=== PATIENT | female | born 1990 | race African-American/Black ===

== ENCOUNTER 2017-09-13 19:44 | Emergency (ER) | payer SELFPAY ==
[2017-09-13] MEDS ORDERED: NA CHLORIDE 0.9% 1,000 ML ONE ×2 (20:51→22:41)
[2017-09-13] MEDS ORDERED: AMLODIPINE 5 MG TAB ONE (20:51)
[2017-09-13 21:16] LABS: Absolute Lymphocytes (CBC) 1.6 K/uL (0.7-4.9); Absolute Monocytes 0.4 K/uL (0.1-1.3); Absolute Neutrophil 2.3 K/uL (1.8-8.0); Basophils % 1.1 % (0-1.3); Eosinophils % 0.1 % (0-4.4); Hematocrit 36.5 % (36.0-45.0); MCH 30.4 pg (27.0-35.0); MCV 92.4 fL (80-100); Monocytes % 8.6 % (3.3-12.3); RBC Red Blood Cell Count 3.95 M/uL (3.86-4.86)
[2017-09-13 21:28] LABS: Glucose Level 108 mg/dL (65-120); Lipase 26 U/L (22-51)
[2017-09-13 21:29] LABS: Protime INR 1.21
[2017-09-13 21:33] LABS: Barbiturates NEGATIVE; Benzodiazepines NEGATIVE; Cocaine NEGATIVE; Opiates NEGATIVE; Phencyclidine NEGATIVE; THC Cannibis NEGATIVE
[2017-09-13 21:34] LABS: ALT/SGPT 7 IU/L (10-60); AST/SGOT 25 IU/L (10-42); Albumin 4.6 g/dL (3.2-5.5); Alkaline Phosphatase 60 IU/L (42-121); BUN Blood Urea Nitrogen 7 mg/dL (6-20); Bilirubin Direct 0.2 mg/dL (0-0.2); Creatine Phosphokinase 105 IU/L (22-269); Magnesium 1.5 mg/dL (1.8-2.5); Protein, Total 8.6 g/dL (6.0-8.3)
--- NOTE | 2017-09-13 21:38 | RAD REPORT ---
EXAM DESCRIPTION: RAD - Chest Single View - 09/13/2017 9:06 pm CLINICAL HISTORY: Cough COMPARISON: June 2006 T TECHNIQUE: AP portable chest image was obtained 2109 hours . FINDINGS: No peripheral mass, consolidation or failure. Lung markings are similar to the comparison. Heart and vasculature are normal. No measurable pleural effusion and no pneumothorax. No gross bony abnormality seen. No acute aortic findings suspected. IMPRESSION: No acute cardiopulmonary process. No significant change from comparison.
[2017-09-13 21:39] LABS: Bicarbonate 19 mEq/L (21-31); CKMB Creatine Kinase MB 0.5 ng/ml (0.3-4.0); Sodium Level 135 mEq/L (135-145)
--- NOTE | 2017-09-13 21:39 | RAD REPORT ---
EXAM DESCRIPTION: CT - Head Brain Wo Cont - 09/13/2017 9:24 pm COMPARISON: None. TECHNIQUE: Axial 5 mm thick images of the head were obtained without IV contrast. All CT scans are performed using dose optimization technique as appropriate and may include automated exposure control or mA/KV adjustment according to patient size. FINDINGS: No intracranial hemorrhage, mass, edema or shift of mid-line structures. No acute infarcti on changes seen. No abnormal extra-axial fluid collections. Ventricles are normal. Mastoid air cells and visualized portions of the paranasal sinuses are clear. No acute bony findings. IMPRESSION: Negative non-contrast CT head examination.
[2017-09-13 21:47] LABS: Alcohol Serum/Plasma < 10 mg/dl
[2017-09-13 21:48] LABS: Potassium 2.1 mEq/L (3.6-5.0)
[2017-09-13 21:49] LABS: METHAMPHETAM POSITIVE (NEGATIVE)
[2017-09-13] MEDS ORDERED: KCL 20 MEQ/100 mL IVPB 20 MEQ/100 ML BAG IV ONE (21:51)
--- NOTE | 2017-09-13 22:16 | ER ---
Nurse's Notes [facility] Name: Radha Mclcellan Age: 27 yrs Sex: Female : 1990 Arrival Date: 09/13/2017 Time: 19:47 Bed 24 Private MD: Diagnosis: Essential (primary) hypertension;Hypomagnesemia;Hypokalemia;Weakness;Cystitis Presentation: 09/13 20:03 Presenting complaint: EMS states: abdominal pain, anxiety, headache started today after tl3 work. Transition of care: patient was not received from another setting of care. Onset of symptoms was September 13, 2017 at 19:00. Risk Assessment: Do you want to hurt yourself or someone else? Patient reports no desire to harm self or others. Initial Sepsis Screen: Does the patient meet any 2 criteria? No. Patient's initial sepsis screen is negative. Does the patient have a suspected source of infection? No. Patient's initial sepsis screen is negative. Care prior to arrival: None. 20:03 Method Of Arrival: EMS: [facility] tl3 20:03 Acuity: KORINA 3 tl3 Triage Assessment: 20:07 General: Appears distressed, well groomed, well developed, well nourished, Behavior is tl3 anxious, listless, restless. Pain: Complains of pain in abdomen, headache. EENT: No signs and/or symptoms were reported regarding the EENT system. Neuro: Level of Consciousness is awake, alert, obeys commands, Oriented to person, place, time, situation, none. Cardiovascular: Heart tones S1 S2 present Patient's skin is warm and dry. Respiratory: Airway is patent Respiratory effort is even, unlabored, Respiratory pattern is regular, symmetrical. GI: Abdomen is round. : No signs and/or symptoms were reported regarding the genitourinary system. Derm: No signs and/or symptoms reported regarding the dermatologic system. Musculoskeletal: No signs and/or symptoms reported regarding the musculoskeletal system. 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 - Social history:: Smoking status: unknown. - Ebola Screening: : Patient denies travel to an Ebola-affected area in the 21 days before illness onset. Screenin/26 20:13 Abuse screen: Denies threats or abuse. Nutritional screening: No deficits noted. tl3 Tuberculosis screening: No symptoms or risk factors identified. Fall Risk None identified. Assessment: 20:13 Reassessment: No changes from previously documented assessment. Patient is alert, tl3 oriented x 3, equal unlabored respirations, skin warm/dry/pink. pt is emotionally distressed, not verbalizing reason for the distress. 20:17 GI: Bowel sounds Abd is soft. tl3 21:21 Reassessment: Patient appears in no apparent distress at this time. No changes from tl3 previously documented assessment. Patient and/or family updated on plan of care and expected duration. Pain level reassessed. Patient is alert, oriented x 3, equal unlabored respirations, skin warm/dry/pink. pt to CT. 21:39 Reassessment: Patient appears in no apparent distress at this time. No changes from tl3 previously documented assessment. Patient and/or family updated on plan of care and expected duration. Pain level reassessed. Patient is alert, oriented x 3, equal unlabored respirations, skin warm/dry/pink. pt returned from CT, IV restarted. 23:43 Reassessment: Patient appears in no apparent distress at this time. No changes from tl3 previously documented assessment. Patient and/or family updated on plan of care and expected duration. Pain level reassessed. Patient is alert, oriented x 3, equal unlabored respirations, skin warm/dry/pink. pt has concerns about being admitted, discussed at length importance of staying for treatment of chemistry imbalance. 09/14 00:22 Reassessment: pt signed out AMA, stating that she had to take care of her children that tl3 there was no one to watch them if she was admitted, she has very limited support system. Vital Signs: 09/13 20:12 BP 142 / 83; Pulse 113; Resp 22; Temp 98.6(O); Pulse Ox 99% on R/A; tl3 21:21 BP 187 / 96; Pulse 92; Resp 18; Pulse Ox 100% on R/A; tl3 21:39 BP 158 / 90; Pulse 89; Resp 24; Pulse Ox 100% ; tl3 21:56 BP 146 / 93; Pulse 78; Resp 18; Pulse Ox 100% ; tl3 23:43 BP 149 / 101; Pulse 87; Resp 18; Pulse Ox 100% ; tl3 ED Course: 19:47 Patient arrived in ED. tl3 20:01 Richard Galindo MD is Attending Physician. [facility] 20:03 Kyra Escalera, ANYA is Primary Nurse. tl3 20:06 Triage completed. tl3 20:12 Arm band placed on right wrist. tl3 20:13 Patient has correct armband on for positive identification. Bed in low position. Call tl3 light in reach. Side rails up X 1. Pulse ox on. NIBP on. 20:13 No provider procedures requiring assistance completed. Inserted saline lock: 20 gauge tl3 in right antecubital area, using aseptic technique. Blood collected. 20:53 Radiology exam delayed due to test not completed at this time. cw1 21:07 XRAY Chest (1 view) In Process Unspecified. EDMS 21:19 Basic Metabolic Panel Sent. tl3 21:19 BNP Sent. tl3 21:19 CBC with Diff Sent. tl3 21:19 Ckmb Sent. tl3 21:19 CPK Sent. tl3 21:19 LFT's Sent. tl3 21:20 Magnesium Sent. tl3 21:23 CT completed. Patient moved to CT via wheelchair. Patient moved back from CT. cw1 21:24 CT Head Brain wo Cont In Process Unspecified. EDMS 21:57 Notified ED physician of a critical lab result(s). 2.1 Potassium level. tl3 21:59 Urine --Ancillary (enter results) Sent. tl3 21:59 Urine Dipstick--Ancillary (enter results) Sent. tl3 22:10 Jefe Owens MD is Hospitalizing Provider. [facility] 22:57 Notified ED physician of a critical lab result(s). Phosphorous less than 1. tl3 09/14 00:22 IV discontinued, intact, bleeding controlled, No redness/swelling at site. Pressure tl3 dressing applied. Administered Medications: 09/13 20:55 Drug: Norvasc 10 mg Route: PO; tl3 20:56 Drug: NS 0.9% 1000 ml Route: IV; Rate: 125 ml/hr; Site: right antecubital; Delivery: tl3 Primary tubing; 09/14 01:42 Follow up: IV Status: Completed infusion tl3 09/13 21:59 Drug: Potassium Chloride 20 mEq Route: IV; Rate: calculated rate; Site: right tl3 antecubital; 09/14 00:25 Follow up: IV Status: Completed infusion tl3 09/13 22:45 Drug: NS 0.9% with KCl 20 mEq/L 1000 ml Route: IV; Rate: 125 ml/hr; Site: right tl3 antecubital; Delivery: Primary tubing; 09/14 00:21 Follow up: IV Status: Completed infusion tl3 09/13 23:15 Drug: Potassium Effervescent Tablet 50 mEq Route: PO; tl3 09/14 00:08 Follow up: Response: No adverse reaction tl3 09/13 23:15 Drug: Magnesium Sulfate 2 grams Route: IVPB; Infused Over: 2 hrs; Site: right tl3 antecubital; 09/14 00:07 Follow up: IV Status: Completed infusion tl3 09/13 23:15 Drug: Rocephin - (cefTRIAXone) 1 grams Route: IVPB; Infused Over: 30 mins; Site: right tl3 antecubital; 09/14 00:05 Follow up: IV Status: Completed infusion; IV Intake: 20ml tl3 00:25 Not Given (Patient Refused): Potassium Phosphate 15 mmol IV at per protocol once; dose tl3 as phosphate; infuse over 4-6 hours (mix in 250 mL NS) Intake: 00:05 IV: 20ml; Total: 20ml. tl3 Outcome: 09/13 22:15 Decision to Hospitalize by Provider. [facility] 09/14 00:22 AMA AMA form signed tl3 Condition: stable Instructed on stressed importance of coming back to ED with any further s/s 01:00 Patient left the ED. rg2 Signatures: Dispatcher [employer] Vinicius Holman rg2 Richard Galindo MD MD cha Woodley, Crystal cw1 Kyra Escalera RN RN tl3 Corrections: (The following items were deleted from the chart) 00:04 09/13 20:07 PSHx: None; tl3 tl3
--- NOTE | 2017-09-13 22:16 | EDPHYS ---
Physician Documentation [facility] Name: Radha Mcclellan Age: 27 yrs Sex: Female : 1990 Arrival Date: 09/13/2017 Time: 19:47 Bed 24 Private MD: ED Physician Richard Galindo HPI: 09/13 20:47 This 27 yrs old Black Female presents to ER via EMS with complaints of Anxiety, jose de jesus Abdominal Pain. 20:47 The patient complains of pain to the forehead, left temporal area and right temporal jose de jesus area. The patient describes the headache as constant. Onset: The symptoms/episode began/occurred today. htn , anxiety. Associated signs and symptoms: Pertinent positives: nausea, weakness. Severity of symptoms: At its worst the pain was moderate, in the emergency department the pain is unchanged. 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 - Social history:: Smoking status: unknown. - Ebola Screening: : Patient denies travel to an Ebola-affected area in the 21 days before illness onset. ROS: 09/13 20:48 Constitutional: Negative for fever, chills, and weight loss, Eyes: Negative for injury, jose de jesus pain, redness, and discharge, ENT: Negative for injury, pain, and discharge, Neck: Negative for injury, pain, and swelling, Cardiovascular: Negative for chest pain, palpitations, and edema, Respiratory: Negative for shortness of breath, cough, wheezing, and pleuritic chest pain, Abdomen/GI: Negative for abdominal pain, nausea, vomiting, diarrhea, and constipation, Back: Negative for injury and pain, : Negative for injury, bleeding, discharge, and swelling, Skin: Negative for injury, rash, and discoloration, Psych: Negative for depression, anxiety, suicide ideation, homicidal ideation, and hallucinations, Allergy/Immunology: Negative for hives, rash, and allergies, Endocrine: Negative for neck swelling, polydipsia, polyuria, polyphagia, and marked weight changes, Hematologic/Lymphatic: Negative for swollen nodes, abnormal bleeding, and unusual bruising. MS/extremity: Positive for Neuro: Positive for headache. Exam: 20:48 Constitutional: This is a well developed, well nourished patient who is awake, alert, jose de jesus and in no acute distress. Head/Face: Normocephalic, atraumatic. Eyes: Pupils equal round and reactive to light, extra-ocular motions intact. Lids and lashes normal. Conjunctiva and sclera are non-icteric and not injected. Cornea within normal limits. Periorbital areas with no swelling, redness, or edema. ENT: Nares patent. No nasal discharge, no septal abnormalities noted. Tympanic membranes are normal and external auditory canals are clear. Oropharynx with no redness, swelling, or masses, exudates, or evidence of obstruction, uvula midline. Mucous membranes moist. Neck: Trachea midline, no thyromegaly or masses palpated, and no cervical lymphadenopathy. Supple, full range of motion without nuchal rigidity, or vertebral point tenderness. No Meningismus. Chest/axilla: Normal chest wall appearance and motion. Nontender with no deformity. No lesions are appreciated. Respiratory: Lungs have equal breath sounds bilaterally, clear to auscultation and percussion. No rales, rhonchi or wheezes noted. No increased work of breathing, no retractions or nasal flaring. Abdomen/GI: Soft, non-tender, with normal bowel sounds. No distension or tympany. No guarding or rebound. No evidence of tenderness throughout. Back: No spinal tenderness. No costovertebral tenderness. Full range of motion. Female : Normal external genitalia. Skin: Warm, dry with normal turgor. Normal color with no rashes, no lesions, and no evidence of cellulitis. MS/ Extremity: Pulses equal, no cyanosis. Neurovascular intact. Full, normal range of motion. Neuro: Awake and alert, GCS 15, oriented to person, place, time, and situation. Cranial nerves II-XII grossly intact. Motor strength 5/5 in all extremities. Sensory grossly intact. Cerebellar exam normal. Normal gait. Psych: Awake, alert, with orientation to person, place and time. Behavior, mood, and affect are within normal limits. 20:48 Cardiovascular: Rate: tachycardic, Rhythm: regular, Pulses: Pulses are 4+ in bilateral radial, brachial, femoral, popliteal, posterior tibial and and dorsalis pedis arteries.. Heart sounds: normal, Edema: is not appreciated, JVD: is not appreciated. Vital Signs: 20:12 BP 142 / 83; Pulse 113; Resp 22; Temp 98.6(O); Pulse Ox 99% on R/A; tl3 21:21 BP 187 / 96; Pulse 92; Resp 18; Pulse Ox 100% on R/A; tl3 21:39 BP 158 / 90; Pulse 89; Resp 24; Pulse Ox 100% ; tl3 21:56 BP 146 / 93; Pulse 78; Resp 18; Pulse Ox 100% ; tl3 23:43 BP 149 / 101; Pulse 87; Resp 18; Pulse Ox 100% ; tl3 MDM: 20:02 Patient medically screened. [facility] 20:50 Data reviewed: vital signs, nurses notes, lab test result(s), EKG, radiologic studies, [facility] CT scan, plain films. 09/13 20:46 Order name: Basic Metabolic Panel [facility] 09/13 20:46 Order name: BNP [facility] 09/13 20:46 Order name: CBC with Diff [facility] 09/13 20:46 Order name: Ckmb [facility] 09/13 20:46 Order name: CPK [facility] 09/13 20:46 Order name: LFT's [facility] 09/13 20:46 Order name: Magnesium [facility] 09/13 20:46 Order name: PT-INR; Complete Time: 22:06 [facility] 09/13 20:46 Order name: Ptt, Activated; Complete Time: 22:06 [facility] 09/13 20:46 Order name: Troponin (emerg Dept Use Only); Complete Time: 22:06 [facility] 09/13 20:46 Order name: Lipase; Complete Time: 22:46 [facility] 09/13 20:46 Order name: Acetaminophen; Complete Time: 22:45 [facility] 09/13 20:46 Order name: ETOH Level; Complete Time: 22:46 [facility] 09/13 20:46 Order name: Salicylate; Complete Time: 22:06 [facility] 09/13 20:46 Order name: Urine Drug Screen; Complete Time: 22:06 [facility] 09/13 20:47 Order name: Basic Metabolic Panel; Complete Time: 22:45 [facility] 09/13 20:47 Order name: BNP B-Type Natriuretic Peptide; Complete Time: 22:06 [facility] 09/13 20:47 Order name: CBC with Automated Diff; Complete Time: 22:06 [facility] 09/13 20:47 Order name: CKMB Creatine Kinase MB; Complete Time: 22:46 [facility] 09/13 20:47 Order name: Creatine Phosphokinase; Complete Time: 22:46 [facility] 09/13 20:47 Order name: Liver (Hepatic) Function; Complete Time: 22:45 [facility] 09/13 20:47 Order name: Magnesium; Complete Time: 22:45 [facility] 09/13 21:23 Order name: Urine Dipstick--Ancillary (enter results) [facility] 09/13 21:23 Order name: Urine --Ancillary (enter results) [facility] 09/13 21:24 Order name: Urine Dipstick-Ancillary [facility] 09/13 21:24 Order name: Urine --Ancillary [facility] 09/13 22:15 Order name: Phosphorus; Complete Time: 22:46 [facility] 09/13 22:52 Order name: CBC with Automated Diff [facility] 09/13 22:52 Order name: CBC with Automated Diff [facility] 09/13 20:46 Order name: Urine Test (obtain specimen); Complete Time: 21:19 [facility] 09/13 20:46 Order name: XRAY Chest (1 view); Complete Time: 22:06 [facility] 09/13 20:46 Order name: EKG; Complete Time: 20:47 [facility] 09/13 20:46 Order name: Cardiac monitoring; Complete Time: 21:20 [facility] 09/13 20:46 Order name: EKG - Nurse/Tech; Complete Time: 22:00 [facility] 09/13 20:46 Order name: IV Saline Lock; Complete Time: 21:20 [facility] 09/13 20:46 Order name: Labs collected and sent; Complete Time: 21:20 [facility] 09/13 20:46 Order name: O2 Per Protocol; Complete Time: 21:20 [facility] 09/13 20:46 Order name: O2 Sat Monitoring; Complete Time: 21:20 [facility] 09/13 20:46 Order name: CT Head Brain wo Cont; Complete Time: 22:06 [facility] 09/13 22:16 Order name: CONS Physician Consult [facility] 09/13 22:52 Order name: CONS Pharmacy Consult [facility] 09/13 22:52 Order name: Heart Healthy [facility] 09/13 22:52 Order name: EKG Electrocardiogram [facility] 09/13 22:52 Order name: EKG Electrocardiogram [facility] 09/13 22:52 Order name: Comprehensive Metabolic Panel [facility] 09/13 22:52 Order name: Comprehensive Metabolic Panel [facility] 09/13 22:52 Order name: Troponin I [facility] 09/13 22:52 Order name: Troponin I [facility] 09/13 22:54 Order name: Cortisol [facility] 09/13 22:54 Order name: Hemoglobin A1C [facility] 09/13 22:54 Order name: Lipid Profile [facility] 09/13 22:54 Order name: T4 Free [facility] 09/13 22:54 Order name: Thyroid Stimulating Hormone [facility] 09/13 20:46 Order name: Urine Dipstick-Ancillary (obtain specimen); Complete Time: 21:19 jose de jesus Administered Medications: 20:55 Drug: Norvasc 10 mg Route: PO; tl3 20:56 Drug: NS 0.9% 1000 ml Route: IV; Rate: 125 ml/hr; Site: right antecubital; Delivery: tl3 Primary tubing; 09/14 01:42 Follow up: IV Status: Completed infusion 3 09/13 21:59 Drug: Potassium Chloride 20 mEq Route: IV; Rate: calculated rate; Site: right tl3 antecubital; 09/14 00:25 Follow up: IV Status: Completed infusion tl3 09/13 22:45 Drug: NS 0.9% with KCl 20 mEq/L 1000 ml Route: IV; Rate: 125 ml/hr; Site: right tl3 antecubital; Delivery: Primary tubing; 09/14 00:21 Follow up: IV Status: Completed infusion tl3 09/13 23:15 Drug: Potassium Effervescent Tablet 50 mEq Route: PO; tl3 09/14 00:08 Follow up: Response: No adverse reaction 3 09/13 23:15 Drug: Magnesium Sulfate 2 grams Route: IVPB; Infused Over: 2 hrs; Site: right tl3 antecubital; 09/14 00:07 Follow up: IV Status: Completed infusion tl3 09/13 23:15 Drug: Rocephin - (cefTRIAXone) 1 grams Route: IVPB; Infused Over: 30 mins; Site: right tl3 antecubital; 09/14 00:05 Follow up: IV Status: Completed infusion; IV Intake: 20ml tl3 00:25 Not Given (Patient Refused): Potassium Phosphate 15 mmol IV at per protocol once; dose tl3 as phosphate; infuse over 4-6 hours (mix in 250 mL NS) Disposition: 05/26/18 22:15 Hospitalization ordered by Jefe Owens for Inpatient Admission. Preliminary diagnosis are Essential (primary) hypertension, Hypomagnesemia, Hypokalemia, Weakness, Cystitis. - Bed requested for Telemetry/MedSurg (Inpatient). - Status is Inpatient Admission. rg2 - Condition is Fair. - Problem is new. - Symptoms have improved. UTI on Admission? Yes Signatures: Dispatcher [employer] EDMS Vinicius Bae rg2 Kay Cota RN RN mw Anderson, Corey, MD MD cha Lowrey, Tammy, RN RN tl3 Corrections: (The following items were deleted from the chart) 09/13 22:15 22:07 PHOSPHORUS+C.LAB.BRZ ordered. EDME EDME 22:15 22:15 Hospitalization Ordered by Jefe Owens MD for Inpatient Admission. Preliminary [facility] diagnosis is Essential (primary) hypertension; Hypomagnesemia; Hypokalemia; Weakness; Cystitis. Bed requested for Telemetry/MedSurg (Inpatient). Status is Inpatient Admission. Condition is Fair. Problem is new. Symptoms have improved. UTI on Admission? No. jose de jesus 22:54 22:15 09/13/2017 22:15 Hospitalization Ordered by Jefe Owens MD for Inpatient Admission. Preliminary diagnosis is Essential (primary) hypertension; Hypomagnesemia; Hypokalemia; Weakness; Cystitis. Bed requested for Telemetry/MedSurg (Inpatient). Status is Inpatient Admission. Condition is Fair. Problem is new. Symptoms have improved. UTI on Admission? Yes. [facility] 22:58 22:54 09/13/2017 22:15 Hospitalization Ordered by Jefe Owens MD for Inpatient Admission. Preliminary diagnosis is Essential (primary) hypertension; Hypomagnesemia; Hypokalemia; Weakness; Cystitis. Bed requested for Telemetry/MedSurg (Inpatient). Status is Inpatient Admission. Condition is Fair. Problem is new. Symptoms have improved. UTI on Admission? Yes. 09/14 00:04 09/13 20:07 PSHx: None; tl3 tl3 09/14 01:00 09/13 22:58 09/13/2017 22:15 Hospitalization Ordered by Jefe Owens MD for Inpatient rg2 Admission. Preliminary diagnosis is Essential (primary) hypertension; Hypomagnesemia; Hypokalemia; Weakness; Cystitis. Bed requested for Telemetry/MedSurg (Inpatient). Status is Inpatient Admission. Condition is Fair. Problem is new. Symptoms have improved. UTI on Admission? Yes. mw
[2017-09-13 22:38] LABS: Phosphorus < 1.0 mg/dL (2.5-4.3)
[2017-09-13] MEDS ORDERED: MORPHINE 2 MG/ML SYR IV PRN (22:49)
[2017-09-13] MEDS ORDERED: ACETAMINOPHEN 500 MG TAB PO PRN (22:49)
[2017-09-13] MEDS ORDERED: ONDANSETRON 4 MG/2 ML VIAL IV PRN (22:49)
[2017-09-13] MEDS ORDERED: TEMAZEPAM 15 MG CAP PO PRN (22:54)
[2017-09-13] MEDS ORDERED: NA CHLORIDE 0.9% 1,000 ML IV SCH (23:00)
[2017-09-13] MEDS ORDERED: POTASSIUM 25 MEQ EFFERV TAB ONE (23:02)
[2017-09-13] MEDS ORDERED: Magnesium Sulfate 2gm IVPB 2 G/50 ML BAG IV ONE (23:03)
[2017-09-13] MEDS ORDERED: CEFTRIAXONE/SWI 1gm 1 GM/10 ML SYR ONE (23:03)
[2017-09-13 23:19] LABS: Urine Blood TRACE (NEG); Urine Glucose NEGATIVE (NEG); Urine Protein 2+ (NEG); Urine Specific Gravity 1.015 (1.005-1.030)
--- NOTE | 2017-09-14 00:39 | P.PN ---
Date of Service: 09/13/17 Patient left AMA prior to being seen
[2017-09-14 01:18] VITALS: TEMP 98.6
[2017-09-14 01:20] VITALS: O2SAT 100
[2017-09-14 01:23] VITALS: BP 149/101
[2017-09-14] MEDS ORDERED: METOPROLOL TAR 25 MG TAB PO SCH (06:00)
[2017-09-14] MEDS ORDERED: VALSARTAN 160 MG TAB PO SCH (09:00)
== END 2017-09-14 01:00 | disposition left against medical advice (07) ==
LOC: ER 19:44 → 4TH 23:55 → UNDOADMIN 23:55 → UNDODISIN 09-14 01:00 → ER 09-14 01:00
DX: I10 Essential (primary) hypertension (principal); E83.42 Hypomagnesemia; E87.6 Hypokalemia; N30.90 Cystitis, unspecified without hematuria; R53.1 Weakness
CPT/HCPCS: 36415; 70450; 71045; 80048; 80076; 80307; 80320; 80329; 81003; 81025; 82550; 82553; 83690; 83735; 83880; 84100; 84484; 85025; 85610; 85730; 96361; 96365; 96367; 99284; J0696; J2270; J3475; J7030

== ENCOUNTER 2021-09-15 13:35 | Emergency (ER) | payer OTHER, SELFPAY ==
--- OUTSIDE RECORDS SUMMARY | 2021-09-15 13:38 | XMS REPORT | Continuity of Care Document ---
:1990 Author Organization [facility] t Address [address] [place] [address] Care Team Providers Name Role Phone Aydee BATES Attending Clinician Unavailable Shantel EARL Attending Clinician Unavailable Payers Payer Name Policy Type Policy Number Effective Date Expiration Date [facility] [id number] 2020 CHOICE MEDICAID 00:00:00 Problems This patient has no known problems. Allergies, Adverse Reactions, Alerts Allergy Allergy Status Severity Reaction(s) Onset Inactive Treating Comm ents Source Name Type Date Date Clinician NO KNOWN Drug Active [facility] ALLERGIE Class [facility] Medications This patient has no known medications. Procedures This patient has no known procedures. Encounters Start End Encounter Admission Attending Care Care Encounter Source Date/Time Date/Time Type Type Clinicians Facility Department ID 2021-02-19 Emergency [facility] [id number] [facility] 13:17:10 [facility] 2020-03-10 2020-03-10 [facility] [id number] [facility] 14:15:00 14:15:00 FE danette o f [facility] 2020-03-10 2020-03-10 Outpatient R JANA [facility] [id number] [facility] 14:15:00 14:15:00 FE samaniego o nenita [facility] 2020-03-09 2020-03-09 Outpatient R RAJAT [facility] [id number] Univers 11:00:00 11:00:00 NIA [id number] [facility] 2020-03-09 2020-03-09 [facility] [id number] [facility] 11:00:00 11:00:00 NIA [facility] Results This patient has no known results.
--- NOTE | 2021-09-15 14:35 | EDPHYS ---
Physician Documentation [facility] Name: Radha Paris Age: 31 yrs Sex: Female : 1990 Arrival Date: 09/15/2021 Time: 13:39 Bed Waiting Private MD: ED Physician Lopez Izaguirre MDM: 09/15 14:28 ED course: Patient left prior to triage. pm1 09/15 13:56 Order name: IV Saline Lock pm1 09/15 13:56 Order name: Labs collected and sent pm1 09/15 13:56 Order name: NPO pm1 09/15 13:56 Order name: Urine Dipstick-Ancillary (obtain specimen) pm1 09/15 13:56 Order name: Urine Test (obtain specimen) pm1 Administered Medications: No medications were administered Disposition: 17:03 Co-signature as Attending Physician, Lopez Izaguirre MD I agree with the assessment and kdr plan of care. Disposition Summary: 09/15/21 14:34 Eloped Disposition: Before Triage ld1 Reason: unknown ld1 Signatures: Dispatcher [employer] EDMS Lopez Izaguirre MD MD kdr Marinas, Patrick, NP GRINDER SETUP OPERATOR pm1 Leanne Post RN RN ld1
--- NOTE | 2021-09-15 14:35 | ER ---
Nurse's Notes [facility] Name: Radha Paris Age: 31 yrs Sex: Female : 1990 Arrival Date: 09/15/2021 Time: 13:39 Bed Waiting Private MD: Diagnosis: ED Course: 09/15 13:39 Patient arrived in ED. ja2 13:55 John Best NP is PHCP. pm1 13:55 Lopez Izaguirre MD is Attending Physician. pm1 14:28 Lopez Izaguirre MD is Attending Physician. kdr Administered Medications: No medications were administered Outcome: 14:34 Patient left the ED. ld1 Signatures: Lopez Izaguirre MD MD [facility] [address] John Best NP PRODUCTION FOREMAN pm1 Leanne Post, RN RN ld1 Teresa Leija2
== END 2021-09-15 14:34 | disposition left against medical advice (07) ==
LOC: ER 13:35
DX: Z02.9 Encounter for administrative examinations, unspecified (principal)

== ENCOUNTER 2021-12-10 19:45 | Emergency (ER) | payer OTHER, SELFPAY ==
--- OUTSIDE RECORDS SUMMARY | 2021-12-10 19:48 | XMS REPORT | Continuity of Care Document ---
:1990 Author Organization [facility] t Address [address] [place] [address] Care Team Providers Name Role Phone NIA EARL Primary Care Physician Unavailable RENETTA EARL Attending Clinician Unavailable Renetta Earl DO Attending Clinician FE BATES Attending Clinician Unavailable NIA EARL Attending Clinician Unavailable Payers Payer Name Policy Type Policy Number Effective Date Expiration Date Formerly [facility] [id number] [address] [facility] MEDICAID 00:00:00 Problems Condition Condition Condition Status Onset Resolution Last Treating Co mments Source Name Details Category Date Date Treatment Clinician Date Vaginal Vaginal Disease Active 2019-04 Univers discharge discharge 1-20 ity of 00:00: [place] [facility] Family Family Disease Active 2019- Univers history of history of 6-04 it y of diabetes diabetes 00:00: [place] mellitus mellitus 00 Medica l Branch History of History of Disease Active 2019 U nivers bariatric bariatric 6-04 ity of surgery surgery 00:00: [place] [facility] Tobacco Tobacco Disease Active 2019- Univers use use 6-04 ity of 00:00: [place] 00 Medical Branch Positive Positive Disease Active 2019 Unive rs depression depression 6-04 it y of screening screening 00:00: [facility] 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 00:00: [facility] 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 Br anch disorder disorder Chlamydia Chlamydia Disease Active Uni vers 7-03 ity of 00:00: Medical Branch Gonorrhea Gonorrhea Disease Active Uni vers 7-03 ity of 00:00: [place] [facility] Well woman Well woman Disease Active U nivers exam exam 10-17 ity of 00:00: Medical Branch Vaginitis Vaginitis Disease Active Uni vers and and 10-17 ity of vulvovagin vul[place]ovagin [place] it[place] itis, 00 Medical unspecifie unspecifie Br anch d d Obesity Obesity Disease Active Univers (BMI (BMI 6- ity of 30-39.9) 30-39.9) 00:00: [place] [facility] Irregular Irregular Disease Active Uni vers menstrual menstrual 4-11 ity of cycle cycle 00:00: [place] [facility] Branch General General Disease Active Overview: Univ ers counseling counseling 3-14 Formattin ity of and advice and advice 00:00: g of this [facility] note Medical contracept contracept might be Branch lucinda lucinda different management management from the original. 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 Essential Essential Disease Active Uni vers hypertensi hypertensi 3-14 it y of on, benign on, benign 00:[place] Allergies, Adverse Reactions, Alerts Allergy Allergy Status Severity Reaction(s) Onset Inactive Treating Comm ents Source Name Type Date Date Clinician NO KNOWN Drug Active Univers ALLERGIE Class ity of S [facility]ly [facility] Social History Social Habit Start Date Stop Date Quantity Comments Source History of tobacco Cigarette Smoker University of use [facility] History [facility] University o f Alcohol Frequency [place] [facility] History [facility] University o f Alcohol Std Drinks [facility] History [facility] o f Alcohol Binge [place] [facility] Exposure to 2021-09-05 2021-09-15 Not sure University of SARS-CoV-2 (event) 00:00:00 14:32:00 [facility] Alcohol intake 2021-09-15 2021-09-15 Current drinker Unive rsity of 00:00:00 00:00:00 of alcohol [place] [facility] (finding) Branch Alcohol Comment 2018-09-22 2018-09-22 drinks socially Univ ersity of 00:00:00 00:00:00 [facility] Tobacco Comment 2017-05-15 2017-05-15 smokes 1/2 pack Univ ersity of 00:00:00 00:00:00 a day [facility] Cigarettes smoked 2016-10-17 2016-10-17 Univers ity of current (pack per 00:00:00 00:00:00 ) - Reported Branch Cigarette 2016-10-17 2016-10-17 University of pack-years 00:00:00 00:00:00 [facility] Tobacco use and 2016-10-17 2016-10-17 Never used Universit y of exposure 00:00:00 00:00:00 [facility] Sex Ass[birth year] Universit y of 00:00:00 00:00:00 [facility] Smoking Status Start Date Stop Date Source Current every day smoker 2016-10-17 00:00:00 Uni versity of [facility] Medications Ordered Filled Start Stop Current Ordering Indication Dosage Frequency Signature Comments Components Source Medication Medication Date Date Medication? Clinician (SIG) Name Name NaCl 0.9% 2021- No 1000mL at 999 Uni vers (NS) bolus 09-15 05-28 mL/hr, ity of infusion 21:00: 22:43 1,000 mL, Efe as 1,000 mL 00 :00 IV Medical Infusion, Branch ONCE, 1 dose, On 09/15/21 at 1600, ISABEL nitrofurant 2021- Yes [id number] 100mg Take 1 Univers oin 09-15 06-05 capsule by ity of (MACRODANTI 00:00: 04:59 mouth 4 [place] 100 mg 00 :00 (four) Medical capsule times Branch daily for 7 days. amLODIPine Yes [id number] 5mg Take 1 U nivers 5 mg tablet 8-05 tablet by ity of 00:00: mouth [place] 00 daily. Medical Branch furosemide Yes [id number] 20mg Take 1 Univers 20 mg 8-05 tablet by ity of tablet 00:00: mouth 00 daily. Medical Branch metroNIDAZO 2019-04 Yes [id number] 500mg Take 1 Univers LE 500 mg 1-23 tablet by ity o f tablet 00:00: mouth 2 [place] 00 (two) Medical times Branch daily. metoprolol Yes [id number] 25mg Take 1 Un stacey tartrate 25 6-04 tablet by ity of mg tablet 00:00: mouth 2 [place] 00 (two) Medical times Branch daily. buPROPion 2018- Yes [id number] 150mg Take 1 Univers SR 6-04 tablet by ity of (WELLBUTRIN 00:00: mouth [place] SR) 150 mg 00 daily. Medical SR tablet Branch Immunizations Ordered Filled Immunization Date Status Comments Sour e Immunization Name Name Influenza Virus 2020-03-10 Completed [facility] [place] [facility] Vaccine Quad .5 mL 00:00:00 [facility] IM 6+ MO Branch HPV 2014-06-23 Completed [facility] 00:00:00 [facility] TDAP 2014-06-23 Completed [facility] 00:00:00 [facility] Td 2003-07-01 Completed [facility] 00:00:00 [facility] Vital Signs Vital Name Observation Time Observation Value Comments Source Diastolic blood 2021-09-15 22:00:00 96 mm[Hg] [facility] Heart rate 2021-09-15 22:00:00 68 /min [facility] Respiratory rate 2021-09-15 22:00:00 18 /min [facility] Oxygen saturation in 2021-09-15 22:00:00 100 /min [facility] Arterial blood by [facility] Pulse oximetry Branch Systolic blood 2021-09-15 22:00:00 157 mm[Hg] [facility] Body height 2021-09-15 19:33:00 160 cm [facility] Body weight 2021-09-15 19:33:00 90.719 kg [facility] BMI 2021-09-15 19:33:00 35.43 kg/m2 [facility] Body temperature 2021-09-15 19:33:00 36.89 Eli [facility] Procedures Procedure Date / Time Performed Performing Clinician Sourc e TOTAL BETA HCG ASSAY 2021-09-15 20:32:00 Renetta Earl [facility] URINALYSIS 2021-09-15 20:31:00 Renetta Earl [facility] CONSENT/REFUSAL FOR 2021-09-15 19:31:45 Doctor Unassigned, [facility] AND Name Medical Branch TREATMENT NOTICE OF PRIVACY 2021-09-15 19:31:18 Doctor Unassigned, No Univ [facility] Name Medical Branch Encounters Start End Encounter Admission Attending Care Care Encounter Source Date/Time Date/Time Type Type Clinicians Facility Department ID 2021-02-19 Emergency [facility] [id number] [facility] 2021-09-15 2021-09-15 [facility] [id number] Univers 14:34:00 17:45:00 RENETTA [facility] 2021-09-15 2021-09-15 [facility] [id number] Univers 14:34:00 17:45:00 [id number] [id number] [place] [id number] Branch 2020-03-10 2020-03-10 Outpatient R JANA, [facility] [id number] Univers 14:15:00 14:15:00 FE ity o f [facility] 2020-03-10 2020-03-10 Outpatient R JANA, [facility] [id number] Univers 14:15:00 14:15:00 FE paredesy o f [facility]ly [facility] 2020-03-09 2020-03-09 [facility] [id number] Univers 11:00:00 11:00:00 [facility] [id number] [facility] 2020-03-09 2020-03-09 [facility] [id number] Univers 11:00:00 11:00:00 NIA [facility] Results Test Description Test Time Test Comments Results Result Comments Source TOTAL BETA HCG ASSAY 2021-09-15 21:38:03 Test Item Value Reference Range Interpretation Comme nts BETA HCG (test code = See_Comment [Auto mated message] The [id number]) system which ge nerated this result transmit emani reference range : Non- fe male and male patients: <5 mIU/mL. The reference r whitley was not used to interpr et this result as ev l/abnormal. JOSH (test code = JOSH) Gestational Age ?Range (mIU/mL) 1-10 ?Weeks ?[id number] Weeks ?[id number] Weeks ?[id number] Weeks ?[id number] Biotin has been reported to cause a negative bias, interpret results relative to patient's use of biotin. [facility] [place] [facility]
[2021-12-10 20:14] LABS: Absolute Lymphocytes (CBC) 1.8 K/uL (0.7-4.9); Hematocrit 27.3 % (36.0-45.0); Lymphocytes % 29.6 % (15.3-44.8); MCV 88.9 fL (80-100); MPV 7.5 fL (7.6-11.3); RBC Red Blood Cell Count 3.07 M/uL (3.86-4.86)
[2021-12-10 20:16] LABS: Protime INR 1.03
[2021-12-10] MEDS ORDERED: Ringers Lactate 1,000 ML IV ONE (20:19)
[2021-12-10 20:27] LABS: SARS-CoV-2 Antigen Rapid Res Negative (Negative)
[2021-12-10] MEDS ORDERED: LABETALOL 20 MG/4ML SYRINGE IV ONE ×3 (20:33→23:07)
[2021-12-10] MEDS ORDERED: Magnesium Sulfate 2gm IVPB 4 G/100 ML BAG IV ONE (20:34)
[2021-12-10 20:36] LABS: ALT/SGPT 13 U/L (12-78); AST/SGOT 14 U/L (15-37); Albumin 2.3 g/dL (3.4-5.0); Alkaline Phosphatase 52 U/L (45-117); BUN Blood Urea Nitrogen 11 mg/dL (7-18); Bicarbonate 23 mmol/L (21-32); Bilirubin Total 0.1 mg/dL (0.2-1.0); Glomerular Filtration Rate 94 ml/min (=/>90); Glucose Level 95 mg/dL (74-106); Magnesium 1.9 mg/dL (1.8-2.4); NT PRO-BNP 106 pg/mL (<125); Potassium 3.6 mmol/L (3.5-5.1); Protein, Total 6.5 g/dL (6.4-8.2); Sodium Level 139 mmol/L (136-145); Troponin High Sensitivity 6.5 pg/mL (<58.9)
[2021-12-10 20:45] LABS: Bilirubin Direct < 0.1 mg/dL (0-0.2)
--- NOTE | 2021-12-10 21:09 | RAD REPORT ---
EXAM DESCRIPTION: Romain Single View12/10/2021 8:21 pm CLINICAL HISTORY: cough COMPARISON: 2017 FINDINGS: The lungs appear clear of acute infiltrate. The heart is normal size IMPRESSION: No acute abnormalities displayed
[2021-12-10 21:25] LABS: Platelet Estimate ADEQ; White Blood Cell Scan OK (OK)
[2021-12-10 21:26] LABS: Blood Morphology Comment NOT SEEN (NOT SEEN)
--- NOTE | 2021-12-10 21:34 | RAD REPORT ---
EXAM DESCRIPTION: US - OB Limited - 12/10/2021 9:19 pm CLINICAL HISTORY: with abdominal pain COMPARISON: None FINDINGS: Limited ultrasound performed to assess viability, placenta, amniotic fluid and cervix Single live intrauterine in cephalic presentation. The placenta is anterior. A myometrial contraction was visualized during the exam. Amniotic fluid within normal limits. Cardiac activity 149 beats per minute. The cervix is closed. BPD 4 centimeters 18 weeks 1 day HC 15 centimeters 18 weeks 0 days AC 12.3 centimeters 18 weeks 0 days FL 2.6 centimeters 18 weeks 0 days The right and left at adnexa unremarkable IMPRESSION: Single live intrauterine in cephalic presentation Normal amniotic fluid The estimated gestational age 18 weeks 0 days ALAN 05/13/2022
--- NOTE | 2021-12-10 21:43 | EDPHYS ---
Physician Documentation [facility] Name: Radha Paris Age: 31 yrs Sex: Female : 1990 Arrival Date: 12/10/2021 Time: 19:47 Bed 2 Private MD: ED Physician Richard Galindo HPI: 12/10 21:35 This 31 yrs old Black Female presents to ER via EMS with complaints of htn, amy and 18 jose de jesus week iup. 21:35 The patient complains of pain to the top of head, forehead, left frontal area, left jose de jesus side of the back of head, left occipital area, left base of the skull, right frontal area, right side of the back of head, right occipital area and right base of the skull. The patient describes the headache as constant. Onset: The symptoms/episode began/occurred today, yesterday. The patient presents to the emergency department with possible uterine contractions, today. The estimated gestational age is 18 weeks. course: care: at a clinic. Previous pregnancies: the patient has never been . Severity of symptoms: At its worst the pain was moderate, in the emergency department the pain is unchanged. SEX CRIMES DETECTIVE: 20:12 4, Full Term 3, Living 3 ja4 21:35 2, Full Term 0, Premature 0, 1, Living 0 jose de jesus Historical: - Allergies: 20:12 No Known Allergies; ja4 - Immunization history:: Adult Immunizations up to date. - Family history:: not pertinent. - Social history:: Smoking status: Patient denies any tobacco usage or history of. ROS: 21:35 Constitutional: Negative for fever, chills, and weight loss, Eyes: Negative for injury, jose de jesus pain, redness, and discharge, ENT: Negative for injury, pain, and discharge, Neck: Negative for injury, pain, and swelling, Cardiovascular: Negative for chest pain, palpitations, and edema, Respiratory: Negative for shortness of breath, cough, wheezing, and pleuritic chest pain, Back: Negative for injury and pain, : Negative for injury, bleeding, discharge, and swelling, MS/Extremity: Negative for injury and deformity, Skin: Negative for injury, rash, and discoloration, Neuro: Negative for headache, weakness, numbness, tingling, and seizure, Psych: Negative for depression, anxiety, suicide ideation, homicidal ideation, and hallucinations, Allergy/Immunology: Negative for hives, rash, and allergies, Endocrine: Negative for neck swelling, polydipsia, polyuria, polyphagia, and marked weight changes, Hematologic/Lymphatic: Negative for swollen nodes, abnormal bleeding, and unusual bruising. 21:35 Abdomen/GI: Positive for abdominal cramps, abdominal distension. Exam: 21:35 Constitutional: This is a well developed, well nourished patient who is awake, alert, jose de jesus and in no acute distress. Head/Face: Normocephalic, atraumatic. Eyes: Pupils equal round and reactive to light, extra-ocular motions intact. Lids and lashes normal. Conjunctiva and sclera are non-icteric and not injected. Cornea within normal limits. Periorbital areas with no swelling, redness, or edema. ENT: Nares patent. No nasal discharge, no septal abnormalities noted. Tympanic membranes are normal and external auditory canals are clear. Oropharynx with no redness, swelling, or masses, exudates, or evidence of obstruction, uvula midline. Mucous membranes moist. Neck: Trachea midline, no thyromegaly or masses palpated, and no cervical lymphadenopathy. Supple, full range of motion without nuchal rigidity, or vertebral point tenderness. No Meningismus. Chest/axilla: Normal chest wall appearance and motion. Nontender with no deformity. No lesions are appreciated. Cardiovascular: Regular rate and rhythm with a normal S1 and S2. No gallops, murmurs, or rubs. Normal PMI, no JVD. No pulse deficits. Respiratory: Lungs have equal breath sounds bilaterally, clear to auscultation and percussion. No rales, rhonchi or wheezes noted. No increased work of breathing, no retractions or nasal flaring. Back: No spinal tenderness. No costovertebral tenderness. Full range of motion. Skin: Warm, dry with normal turgor. Normal color with no rashes, no lesions, and no evidence of cellulitis. MS/ Extremity: Pulses equal, no cyanosis. Neurovascular intact. Full, normal range of motion. Neuro: Awake and alert, GCS 15, oriented to person, place, time, and situation. Cranial nerves II-XII grossly intact. Motor strength 5/5 in all extremities. Sensory grossly intact. Cerebellar exam normal. Normal gait. Psych: Awake, alert, with orientation to person, place and time. Behavior, mood, and affect are within normal limits. 21:35 ECG was reviewed by the Attending Physician. 21:35 Abdomen/GI: Inspection: distension, Bowel sounds: normal, Palpation: abdomen is soft and non-tender, Liver: no appreciated palpable abnormalities, Hernia: not appreciated. Vital Signs: 19:55 BP 161 / 103; Pulse 76; Resp 14; Pulse Ox 100% ; Weight 99.79 kg; Height 5 ft. 4 in. ja4 (162.56 cm); Pain 10/10; 20:27 BP 167 / 99 RA Supine (auto/); ja4 21:20 BP 153 / 99; Pulse 85; Resp 22; Pulse Ox 100% ; vc1 22:02 BP 155 / 96; Pulse 71; Resp 19; Pulse Ox 100% ; vc1 23:17 BP 152 / 105; Pulse 78; Resp 19; Pulse Ox 100% ; vc1 23:43 BP 142 / 80; Pulse 85; Resp 18; Pulse Ox 100% ; vc1 19:55 Body Mass Index 37.76 (99.79 kg, 162.56 cm) ja4 Deidra Coma Score: 21:38 Eye Response: spontaneous(4). Verbal Response: oriented(5). Motor Response: obeys jose de jesus commands(6). Total: 15. MDM: 19:49 Patient medically screened. jose de jesus 21:38 Differential diagnosis: cerebral vascular accident, hypertensive headache, jose de jesus hyponatremia, intracerebral hemorrhage, migraine, sinusitis, temporal arteritis, tension headache, traumatic injuries, uremia, vasomotor headache. Data reviewed: vital signs, nurses notes, lab test result(s), EKG, radiologic studies, plain films. Data interpreted: surveillance system monitor: rate is 85 beats/min, rhythm is regular, Pulse oximetry: on room air. Counseling: I had a detailed discussion with the patient and/or guardian regarding: the historical points, exam findings, and any diagnostic results supporting the discharge/admit diagnosis, lab results, radiology results, the need to transfer to another facility, for higher level of care, [facility] does not immediately have the required specialist. 21:39 Test interpretation: by ED physician or midlevel provider: ECG, plain radiologic jose de jesus studies. 12/10 19:51 Order name: Basic Metabolic Panel; Complete Time: 20:58 [place] 12/10 19:51 Order name: CBC with Diff; Complete Time: 22:00 [facility] 12/10 19:51 Order name: LFT's; Complete Time: 20:58 [facility] 12/10 19:51 Order name: Magnesium; Complete Time: 20:58 [facility] 12/10 19:51 Order name: NT PRO-BNP; Complete Time: 20:58 [facility] 12/10 19:51 Order name: PT-INR; Complete Time: 20:58 [facility] 12/10 19:51 Order name: Troponin HS; Complete Time: 20:58 [facility] 12/10 19:51 Order name: XRAY Chest (1 view); Complete Time: 22:00 [facility] 12/10 19:51 Order name: SARS RAPID; Complete Time: 20:58 [facility] 12/10 20:24 Order name: US OB Limited; Complete Time: 22:00 [facility] 12/10 21:26 Order name: CBC Smear Scan; Complete Time: 22:00 [facility] 12/10 19:51 Order name: EKG; Complete Time: 19:52 [facility] 12/10 19:51 Order name: Cardiac monitoring; Complete Time: 20:08 [facility] 12/10 19:51 Order name: EKG - Nurse/Tech; Complete Time: 20:49 [facility] 12/10 19:51 Order name: IV Saline Lock; Complete Time: 20:08 [facility] 12/10 19:51 Order name: Labs collected and sent; Complete Time: 20:49 [facility] 12/10 19:51 Order name: O2 Per Protocol; Complete Time: 20:08 [facility] 12/10 19:51 Order name: O2 Sat Monitoring; Complete Time: 20:08 [facility] 12/10 19:51 Order name: FHT's; Complete Time: 20:49 [facility] EC:35 Rate is 33 beats/min. Rhythm is regular. QRS [place] is Normal. RI interval is normal. QRS jose de jesus interval is normal. QT interval is normal. No Q waves. T waves are Normal. No ST changes noted. Clinical impression: Normal ECG and No evidence of ischemia. Interpreted by me. Reviewed by me. Administered Medications: 20:16 Drug: Lactated Ringers Solution 1000 ml Route: IV; Rate: 100 ml/hr; Site: left ja4 antecubital; 23:45 Follow up: IV Status: Infusion continued upon transfer; IV Intake: 300ml vc1 20:26 Drug: Labetalol 20 mg Route: IV; Rate: per protocol; Infused Over: 2 mins; Site: left 4 antecubital; 23:45 Follow up: IV Status: Completed infusion vc1 20:26 Drug: Magnesium Sulfate 4 grams Route: IVPB; Infused Over: 30 mins; Site: left [facility] antecubital; 21:00 Follow up: IV Status: Completed infusion; IV Intake: 100ml vc1 22:10 Drug: Labetalol 100 mg Route: PO; ja4 23:45 Follow up: Response: No adverse reaction vc1 22:10 Drug: Labetalol 20 mg Route: IV; Rate: per protocol; Infused Over: 2 mins; Site: right 4 antecubital; 23:45 Follow up: IV Status: Completed infusion vc1 23:07 Drug: Labetalol 40 mg Route: IV; Rate: 0.4 mcg/min; Infused Over: 2 mins; Site: right [facility] antecubital; 23:44 Follow up: IV Status: Completed infusion vc1 Disposition Summary: 12/10/21 21:43 Transfer Ordered Transfer Location: Other Acute Care Facility jose de jesus Reason: Higher level of care jose de jesus Condition: Fair jose de jesus Problem: new jose de jesus Symptoms: have improved jose de jesus Accepting Physician: to MASSIMO GAGE(12/10/21 23:46) vc1 Diagnosis - 18 weeks gestation of jose de jesus - Essential (primary) hypertension jose de jesus - Headache jose de jesus - Anemia, unspecified jose de jesus Forms: - Medication Reconciliation Form jose de jesus - SBAR form jose de jesus Signatures: Dispatcher [employer] Richard Rasmussen MD MD cha Calcote, Vanessa, RN RN vc1 Geovanny Romero RN RN ja4 Corrections: (The following items were deleted from the chart) 20:13 20:12 PMHx: Hypertension; ja4 ja4 22:00 21:43 to MASSIMO GAGE jose de jesus jose de jesus 23:46 22:00 to MASSIMO GAGE jose de jesus vc1
--- NOTE | 2021-12-10 21:43 | ER ---
Nurse's Notes [facility] Name: Radha Paris Age: 31 yrs Sex: Female : 1990 Arrival Date: 12/10/2021 Time: 19:47 Bed 2 Private MD: Diagnosis: 18 weeks gestation of ;Essential (primary) hypertension;Headache;Anemia, unspecified Presentation: 12/10 19:55 Chief complaint: Patient states: pre eclampsia, head ache. Coronavirus screen: At this ja4 time, the client does not indicate any symptoms associated with coronavirus-19. Ebola Screen: Patient negative for fever greater than or equal to 101.5 degrees Fahrenheit, and additional compatible Ebola Virus Disease symptoms. Initial Sepsis Screen: Does the patient meet any 2 criteria? No. Patient's initial sepsis screen is negative. Does the patient have a suspected source of infection? No. Patient's initial sepsis screen is negative. Risk Assessment: Do you want to hurt yourself or someone else? Patient reports no desire to harm self or others. Onset of symptoms was December 09, 2021. 19:55 Method Of Arrival: EMS ja4 19:55 Acuity: KORINA 2 ja4 Triage Assessment: 20:12 General: Appears in no apparent distress. Behavior is calm, cooperative, appropriate ja4 for age. Pain: Complains of pain in head Pain currently is 10 out of 10 on a pain scale. Quality of pain is described as aching. Cardiovascular: No deficits noted. Respiratory: No deficits noted. 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 - Family history:: not pertinent. - Social history:: Smoking status: Patient denies any tobacco usage or history of. Screenin:14 Abuse screen: Denies threats or abuse. Nutritional screening: No deficits noted. ja4 Tuberculosis screening: No symptoms or risk factors identified. Fall Risk IV access (20 points). Assessment: 20:14 Reassessment: see triage note. ja4 20:42 Reassessment: ems iv removed. ja4 21:19 Reassessment: Patient and/or family updated on plan of care and expected duration. Pain vc1 level reassessed. Patient is alert, oriented x 3, equal unlabored respirations, skin warm/dry/pink. Patient states symptoms have improved. 23:17 Reassessment: Patient and/or family updated on plan of care and expected duration. Pain vc1 level reassessed. Patient is alert, oriented x 3, equal unlabored respirations, skin warm/dry/pink. Patient denies pain at this time. Patient states feeling better. Patient states symptoms have improved. Vital Signs: 19:55 BP 161 / 103; Pulse 76; Resp 14; Pulse Ox 100% ; Weight 99.79 kg; Height 5 ft. 4 in. ja4 (162.56 cm); Pain 10/10; 20:27 BP 167 / 99 RA Supine (auto/); ja4 21:20 BP 153 / 99; Pulse 85; Resp 22; Pulse Ox 100% ; vc1 22:02 BP 155 / 96; Pulse 71; Resp 19; Pulse Ox 100% ; vc1 23:17 BP 152 / 105; Pulse 78; Resp 19; Pulse Ox 100% ; vc1 23:43 BP 142 / 80; Pulse 85; Resp 18; Pulse Ox 100% ; vc1 19:55 Body Mass Index 37.76 (99.79 kg, 162.56 cm) ja4 Vitals: 21:20 Cardiac Rhythm Assessment Regular. vc1 Pelham Coma Score: 21:38 Eye Response: spontaneous(4). Verbal Response: oriented(5). Motor Response: obeys jose de jesus commands(6). Total: 15. ED Course: 19:47 Patient arrived in ED. mw2 19:49 Richard Galindo MD is Attending Physician. jose de jesus 20:07 Geovanny Romero, ANYA is Primary Nurse. ja4 20:11 Triage completed. ja4 20:12 Arm band placed on right wrist. ja4 20:14 Patient has correct armband on for positive identification. Bed in low position. Call ja4 light in reach. Side rails up X 1. Client placed on continuous cardiac and pulse oximetry monitoring. NIBP monitoring applied. 20:14 No provider procedures requiring assistance completed. Maintain EMS IV. Dressing ja4 intact. Good blood return noted. Site clean \\T\\ dry. 20:23 XRAY Chest (1 view) In Process Unspecified. EDMS 20:35 Inserted saline lock: 20 gauge in right antecubital area, using aseptic technique. ja4 20:40 Missed attempt(s): Bleeding controlled, band aid applied, catheter tip intact. IV ja4 discontinued, iv infiltrated. 21:18 initiated a transfer with Ginger from [facility]. mw2 21:21 US OB Limited In Process Unspecified. EDMS 21:50 Ginger from [facility] called back she stated "we are just waiting for Dr. Silva mw2 to call us back.". 21:[address] Galindo with Dr. Jackson from [facility]. mw2 22:33 administrative approval given by Rober Gibbons/ patient has been accepted to [address] bed 303 antipartum floor/ Dr. Silva accepted the patient in transfer/report to be called to [phone]. Administered Medications: 20:16 Drug: Lactated Ringers Solution 1000 ml Route: IV; Rate: 100 ml/hr; Site: left [address]; 23:45 Follow up: IV Status: Infusion continued upon transfer; IV Intake: 300ml vc1 20:26 Drug: Labetalol 20 mg Route: IV; Rate: per protocol; Infused Over: 2 mins; Site: left [address]; 23:45 Follow up: IV Status: Completed infusion vc1 20:26 Drug: Magnesium Sulfate 4 grams Route: IVPB; Infused Over: 30 mins; Site: left [address]; 21:00 Follow up: IV Status: Completed infusion; IV Intake: 100ml vc1 22:10 Drug: Labetalol 100 mg Route: PO; ja4 23:45 Follow up: Response: No adverse reaction vc1 22:10 Drug: Labetalol 20 mg Route: IV; Rate: per protocol; Infused Over: 2 mins; Site: right [address]; 23:45 Follow up: IV Status: Completed infusion vc1 23:07 Drug: Labetalol 40 mg Route: IV; Rate: 0.4 mcg/min; Infused Over: 2 mins; Site: right [address]; 23:44 Follow up: IV Status: Completed infusion vc1 Medication: 20:14 VIS not applicable for this client. ja4 Intake: 21:00 IV: 100ml; Total: 100ml. vc1 23:45 IV: 300ml; Total: 400ml. vc1 Outcome: 21:43 ER care complete, transfer ordered by . jose de jesus 23:43 Transferred by ground EMS to other acute care facility: [facility]. Transfer form vc1 completed. Note: Report given to ANYA Sanchez 23:43 Condition: improved 23:46 Patient left the ED. vc1 Signatures: Dispatcher [employer] EDMS Richard Galindo MD MD cha Westbrook, MyKena 2 Cherri Florez RN RN vc1 Geovanny Romero RN RN ja4 Corrections: (The following items were deleted from the chart) 20:13 20:12 PMHx: Hypertension; ja4 ja4 20:42 20:40 IV discontinued, iv infiltrated ja4 ja4 20:43 20:40 Missed attempt(s): Bleeding controlled, band aid applied, catheter tip intact. IV ja4 discontinued, iv infiltrated ja4
[2021-12-10] MEDS ORDERED: LABETALOL HCL 100 MG TAB ONE (22:13)
[2021-12-11 01:58] VITALS: O2SAT 100
[2021-12-11 02:10] VITALS: BP 142/80
--- NOTE | 2021-12-11 13:49 | EKG ---
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
== END 2021-12-10 23:46 ==
LOC: ER 19:45
DX: O16.2 Unspecified maternal hypertension, second trimester (principal); O99.012 Anemia complicating pregnancy, second trimester; D64.9 Anemia, unspecified; Z3A.18 18 weeks gestation of pregnancy; Z20.822 Contact with and (suspected) exposure to COVID-19
CPT/HCPCS: 93005; 85025; 80048; 36415; 83735; 85610; 80076; 84484; 83880; 71045; 76815; 99285; 87811; J3475; J7120

== ENCOUNTER 2023-11-26 19:52 | Emergency (ER) | payer OTHER ==
--- OUTSIDE RECORDS SUMMARY | 2023-11-26 19:57 | XMS REPORT | Continuity of Care Document ---
Author Name Unknown Address [address] [facility] [place] [address] [facility] thconnect Address [address] [facility] [address] [place] [address] Care Team Providers Care [employer] Supervisor Name Role Phone NIA EARL Primary Care Physician Unavail able Clayton Attending Clinician Unavail able Nuzhat Villatoro Attending Clinician Unavailable Bruce Silva Attending Clinician Unavailable RENETTA EARL Attending Clinician Unavailab Renetta Crook DO Attending Clinician FE BATES Attending Clinician Unavail able NIA EARL Attending Clinician Unavailabl e Clayton Admitting Clinician Unavail able Nuzhat Villatoro Admitting Clinician Unavailable Bruce Silva Admitting Clinician Unavailable Payers Payer Name Policy Type Policy Number Effective Date Expirati on Date Source [facility] MEDICAID [id number] 2020 00:00:00 [facility] ([facility] [id number] 2021 00:00:00 Problems Condition Name Condition Details Condition Category Status Onset Date Resolution Date Last Treatment Date Treating Clinician Comments Source Vaginal discharge Vaginal discharge Disease Active 2019-04 00:00: 00 [facility] Family history of diabetes mellitus Family history of diabetes mellitus Disease Active 09-22 00:00: 00 [facility] History of bariatric surgery History of bariatric surgery Disease Active 09-22 00:00: 00 [facility] Tobacco use Tobacco use Disease Active 09-22 00:00: 00 [facility] Positive depression screening Positive depression screening Disease Active 09-22 00:00: 00 [facility] Moderate episode of recurrent major depressive disorder Moderate episode of recurrent major depressive disorder Disease Active 09-22 00:00: 00 [facility] Chlamydia Chlamydia Disease Active 10-21 00:00: 00 [facility] Gonorrhea Gonorrhea Disease Active 10-21 00:00: 00 [facility] Well woman exam Well woman exam Disease Active 10-17 00:00: 00 [facility] Vaginitis and vulvovagin itis, unspecifie d Vaginitis and vulvovagin itis, unspecifie d Disease Active 10-17 00:00: 00 [facility] Obesity (BMI 30-39.9) Obesity (BMI 30-39.9) Disease Active 10-17 00:00: 00 [facility] Irregular menstrual cycle Irregular menstrual cycle Disease Active 07-30 00:00: 00 [facility] General counseling and advice for contracept lucinda management General counseling and advice for contracept lucinda management Disease Active 07-02 00:00: 00 Overview: Formattin g of this note might be different from the original. ICD10 Diagnosis Term Internet Network Specialist Utility [facility] Essential hypertensi on, benign Essential hypertensi on, benign Disease Active 07-02 00:00: 00 [facility] Allergies, Adverse Reactions, Alerts Allergy Name Allergy Type Status Severity Reaction(s) Onset Date Inactive Date Treating Clinician Comments Source No Known Allergie s DA Active U 2011-04 00:00: [facility] NO KNOWN ALLERGIE S Drug Class Active [facility] Social History Social Habit Start Date Stop Date Quantity Comments Source History of tobacco use Cigarette Smoker [facility] History SDOH Alcohol Frequency [facility] History SDOH Alcohol Std Drinks [facility] History SDOH Alcohol Binge [facility] Exposure to SARS-CoV-2 (event) 2021-09-05 00:00:00 2021-09-15 14:32:00 Not sure [facility] Alcohol intake 2021-09-15 00:00:00 2021-09-15 00:00:00 Current drinker of alcohol (finding) [facility] Alcohol Comment 2018-09-22 00:00:00 2018-09-22 00:00:00 drinks socially [facility] Tobacco Comment 2017-05-15 00:00:00 2017-05-15 00:00:00 smokes 1/2 pack a day [facility] Cigarettes smoked current (pack per day) - Reported 2016-10-17 00:00:00 2016-10-17 00:00:00 [facility] Cigarette pack-years 2016-10-17 00:00:00 2016-10-17 00:00:00 [facility] Tobacco use and exposure 2016-10-17 00:00:00 2016-10-17 00:00:00 Never used [facility] Sex Assigned At 1990 00:00:00 1990 00:00:00 [facility] Smoking Status Start Date Stop Date Source Current every day smoker 2016-10-17 00:00:00 [facility] Medications Ordered Medication Name Filled Medication Name Start Date Stop Date Current Medication? Ordering Clinician Indication Dosage Frequency Signature (SIG) Comments Components Source NaCl 0.9% (NS) bolus infusion 1,000 mL 09-15 21:00: 00 09-15 22:43 :00 No 1000mL at 999 mL/hr, 1,000 mL, IV Infusion, ONCE, 1 dose, On 09/15/21 at 1600, ISABEL [facility] nitrofurant oin (MACRODANTI N) 100 mg capsule 09-15 00:00: 00 09-23 04:59 :00 No [id number] 100mg Take 1 capsule by mouth 4 (four) times daily for 7 days. [facility] amLODIPine 5 mg tablet 11-23 00:00: 00 Yes [id number] 5mg Take 1 tablet by mouth daily. [facility] furosemide 20 mg tablet 11-23 00:00: 00 Yes [id number] 20mg Take 1 tablet by mouth daily. [facility] metroNIDAZO LE 500 mg tablet 2019-04 00:00: 00 Yes [id number] 500mg Take 1 tablet by mouth 2 (two) times daily. [facility] metoprolol tartrate 25 mg tablet 09-22 00:00: 00 Yes [id number] 25mg Take 1 tablet by mouth 2 (two) times daily. [facility] buPROPion SR (WELLBUTRIN SR) 150 mg SR tablet 09-22 00:00: 00 Yes [id number] 150mg Take 1 tablet by mouth daily. [facility] Vital Signs Vital Name Observation Time Observation Value Comments S ource Diastolic blood pressure 2021-09-15 22:00:00 96 mm[Hg] [facility] Heart rate 2021-09-15 22:00:00 68 /min [facility] Respiratory rate 2021-09-15 22:00:00 18 /min [facility] Oxygen saturation in Arterial blood by Pulse oximetry 2021-09-15 22:00:00 100 /min [facility] Systolic blood pressure 2021-09-15 22:00:00 157 mm[Hg] [facility] Body temperature 2021-09-15 19:33:00 36.89 Eli [facility] Body height 2021-09-15 19:33:00 160 cm [facility] Body weight 2021-09-15 19:33:00 90.719 kg [facility] BMI 2021-09-15 19:33:00 35.43 kg/m2 [facility] Procedures Procedure Date / Time Performed Performing Clinicia n Source [id number] 2022-03-28 00:00:00 CLILI [facility] [id number] 2022-03-28 00:00:00 CLILI [facility] [id number] 2022-03-28 00:00:00 CLILI [facility] [id number] 2022-03-28 00:00:00 CLILI [facility] [id number] 2022-03-28 00:00:00 CLILI [facility] [id number] [facility] 2021-09-15 20:32:00 Ishan Earl [facility] URINALYSIS 2021-09-15 20:31:00 Renetta Earl [facility] CONSENT/REFUSAL FOR DIAGNOSIS AND TREATMENT 2021-09-15 19:31:45 Doctor Unassigned, [place] [facility] NOTICE OF PRIVACY PRACTICES 2021-09-15 19:31:18 Doctor Unassigned, [place] [facility] Encounters Start Date/Time End Date/Time Encounter Type Admission Type Attending Clinicians Care Facility Care Department Encounter ID Source 2021-02-19 13:17:10 Emergency [facility] [id number] [facility] 2022-07-03 00:00:00 2022-07-03 00:00:00 Outpatient GC_SWHABAWS _Leblan_J PRIV PRIV [id number] [facility] 2022-06-05 00:00:00 2022-06-05 00:00:00 Outpatient GC_SWHABAWS _Leblan_J PRIV PRIV [id number] [facility] 2022-05-08 00:00:00 2022-05-08 00:00:00 Outpatient GC_SWHABAWS _Leblan_J PRIV PRIV [id number] [facility] 2022-04-24 00:00:00 2022-04-24 00:00:00 Outpatient GC_SWHABAWS _Leblan_J PRIV PRIV [id number] [facility] 2022-04-18 00:00:00 2022-04-18 00:00:00 Outpatient GC_CARSON _Trinityblfelix_J PRIV PRIV [id number] [facility] 2022-04-18 00:00:00 2022-04-18 00:00:00 Outpatient GC_CARSON _Trinityblan_J PRIV PRIV [id number] [facility] 2022-04-01 00:00:00 2022-04-01 00:00:00 Outpatient GC_CARSON _Trinityblan_J PRIV PRIV [id number] [facility] 2022-03-26 21:01:00 2022-03-31 16:45:00 Inpatient Nuzhat Monroe [facility] LD [id number] 85 [facility] 2022-03-21 00:17:00 2022-03-22 14:30:00 Inpatient UR Nuzhat Villatoro [facility] OBANTE [id number] [facility] 2022-03-21 00:00:00 2022-03-21 00:00:00 Outpatient GC_CARSON _Zay_J PRIV PRIV [id number] [facility] 2021-12-13 07:00:00 2021-12-14 11:30:00 Inpatient Bruce Mcpherson [facility] OBANTE [id number] 44 [facility] 2021-09-15 14:34:00 2021-09-15 17:45:00 Emergency X RENETTA EARL [facility] ERT [id number] [facility] 2021-09-15 14:34:00 2021-09-15 17:45:00 Emergency Renetta Earl [facility] [id number] [facility] 2020-03-10 14:15:00 2020-03-10 14:15:00 Outpatient FE ACHARYA [facility] [id number] [facility] 2020-03-09 11:00:00 2020-03-09 11:00:00 Outpatient NIA RUIZ [facility] [id number] [facility] Results Test Description Test Time Test Comments Results Result Co mments Source COMPREHENSIVE METABOLIC [id number] 07:00:00* Test Item Value Reference Range Interpretation Comme nts SODIUM (test code = NA) 135 mEq/L 134-147 N POTASSIUM (test code = K) 4.4 mEq/L 3.4-5.0 N CHLORIDE (test code = CL) 105 mEq/L 100-108 N CARBON DIOXIDE (test code = CO2) 24 mEq/l 21-33 N ANION GAP (test code = GAP) 10 0-20 N GLUCOSE (test code = GLU) 85 mg/dL 70-110 N BLOOD UREA NITROGEN (test code = BUN) 6 mg/dL 7-18 L GLOMERULAR FILTRATION RATE (test code = GFR) 117.0 105-110 H The Glomerular Filtration Rate is a calculated parameterbased on serum Creatinine, patient age and sex. GFR valuesless than 60 mL/min/1.73 square meters are indicative ofChronic Kidney Disease. Values less than 15 mL/min/1.73square meters indicate Kidney failure. The calculation forGFR is based on the CKD-EPI (2020) calculation. This formulais race indifferent and is the recommended formula for GFRby the National Kidney Foundation for Adults.The GFR will not calculate if the sex is unknown or if thepatient's age is <18 years. CREATININE (test code = CREAT) 0.7 mg/dL 0.6-1.3 N TOTAL PROTEIN (test code = PROT) 5.9 g/dL 6.4-8.2 L ALBUMIN (test code = ALB) 2.40 g/dL 3.4-5.0 L CALCIUM (test code = CA) 7.0 mg/dL 8.0-10.5 L BILIRUBIN TOTAL (test code = BILT) 0.20 mg/dL 0.0-1.0 SGOT/AST (test code = AST) 14 IUnit/L 15-37 L SGPT/ALT (test code = ALT) 12 IUnit/L 30-65 L ALKALINE PHOSPHATASE TOTAL (test code = ALKP) 91 IUnit/L 20-125 N CORD VENOUS BLOOD [id number] 13:16:00* Test Item Value Reference Range Interpretation Comme nts CORD VENOUS PH (test code = PHCV) 7.33 7.25-7.45 N CORD VENOUS PCO2 (test code = PCO2CV) 43 mmHg 27-49 N CORD VENOUS PO2 (test code = PO2CV) 25 mmHg 17-41 N CORD VENOUS HCO3 (test code = HCO3CV) 22.1 MMOL/L 12-28 N CORD VENOUS BASE EXCESS (diana t code = BEXCV) -3.9 mmol/L -8.0-0.00 N CORD VENOUS 02 SAT (test cod e = O2SCV) 41 % CBC W/AUTO [id number] 08:15:00* Test Item Value Reference Range Interpretation Comme nts WHITE BLOOD CELL (test code = WBC) 7.8 x10 3/uL 4.5-11.0 N RED BLOOD CELL (test code = RBC) 3.49 x10 6/uL 3.54-5.02 L HEMOGLOBIN (test code = HGB) 9.1 g/dL 11.0-15.0 L HEMATOCRIT (test code = HCT) 30.1 % 33.0-45.0 L MEAN CELL VOLUME (test code = MCV) 86.2 fL 81.0-99.0 N MEAN CELL HGB (test code = MCH) 26.1 pg 27.0-33.0 L MEAN CELL HGB CONCETRATION (test code = MCHC) 30.2 g/dL 33.0-37.0 L RED CELL DISTRIBUTION WIDTH CV (test code = RDW) 16.5 % 11.5-14.5 H RED CELL DISTRIBUTION WIDTH SD (test code = RDW-SD) 51.4 fL 37.0-54.0 N PLATELET COUNT (test code = PLT) 404 x10 3/uL 150-400 H MEAN PLATELET VOLUME (test c ode = MPV) 9.5 fL 7.0-9.0 H NEUTROPHIL % (test code = NT%) 70.7 % 56.0-77.0 N IMMATURE GRANULOCYTE % (test code = IG%) 0.9 % 0.0-2.0 N LYMPHOCYTE % (test code = LY%) 20.1 % 14.0-32.0 N MONOCYTE % (test code = MO%) 6.4 % 4.8-9.0 N EOSINOPHIL % (test code = EO%) 1.4 % 0.3-3.7 N BASOPHIL % (test code = BA%) 0.5 % 0.0-2.0 N NUCLEATED RBC % (test code = NRBC%) 0.0 % 0-0 N NEUTROPHIL # (test code = NT#) 5.54 x10 3/uL 2.0-7.6 N IMMATURE GRANULOCYTE # (test code = IG#) 0.07 x10 3/uL 0.00-0.03 H LYMPHOCYTE # (test code = LY#) 1.57 x10 3/uL 1.0-3.8 N MONOCYTE # (test code = MO#) 0.50 x10 3/uL 0.1-0.8 N EOSINOPHIL # (test code = EO#) 0.11 x10 3/uL 0.0-0.2 N BASOPHIL # (test code = BA#) 0.04 x10 3/uL 0.0-0.2 N NUCLEATED RBC # (test code = NRBC#) 0.00 x10 3/uL 0.0-0.1 N MANUAL DIFF REQUIRED (test c ode = MDIFF) NO COMPREHENSIVE METABOLIC [id number] 08:08:00* Test Item Value Reference Range Interpretation Comme nts SODIUM (test code = NA) 134 mEq/L 134-147 N POTASSIUM (test code = K) 3.8 mEq/L 3.4-5.0 N CHLORIDE (test code = CL) 103 mEq/L 100-108 N CARBON DIOXIDE (test code = CO2) 23 mEq/l 21-33 N ANION GAP (test code = GAP) 12 0-20 N GLUCOSE (test code = GLU) 91 mg/dL 70-110 N BLOOD UREA NITROGEN (test code = BUN) 8 mg/dL 7-18 N GLOMERULAR FILTRATION RATE (test code = GFR) 117.0 105-110 H The Glomerular Filtration Rate is a calculated parameterbased on serum Creatinine, patient age and sex. GFR valuesless than 60 mL/min/1.73 square meters are indicative ofChronic Kidney Disease. Values less than 15 mL/min/1.73square meters indicate Kidney failure. The calculation forGFR is based on the CKD-EPI (2021) calculation. This formulais race indifferent and is the recommended formula for GFRby the National Kidney Foundation for Adults.The GFR will not calculate if the sex is unknown or if thepatient's age is <18 years. CREATININE (test code = CREAT) 0.7 mg/dL 0.6-1.3 N TOTAL PROTEIN (test code = PROT) 6.3 g/dL 6.4-8.2 L ALBUMIN (test code = ALB) 2.50 g/dL 3.4-5.0 L CALCIUM (test code = CA) 7.5 mg/dL 8.0-10.5 L BILIRUBIN TOTAL (test code = BILT) 0.30 mg/dL 0.0-1.0 N SGOT/AST (test code = AST) 16 IUnit/L 15-37 N SGPT/ALT (test code = ALT) 16 IUnit/L 30-65 L ALKALINE PHOSPHATASE TOTAL (test code = ALKP) 102 IUnit/L 20-125 N URIC [id number] 08:08:00* Test Item Value Reference Range Interpretation Comme nts URIC ACID (test code = URIC) 5.7 mg/dL 2.6-7.2 N LACTIC DEHYDROGENASE(LDH)2022-03-28 08:08:00* Test Item Value Reference Range Interpretation Comme nts LACTIC DEHYDROGENASE(LDH) (t est code = LDH) 183 IUnits/L 84-246 N COMPREHENSIVE METABOLIC [id number] 23:37:00* Test Item Value Reference Range Interpretation Comme nts SODIUM (test code = NA) 134 mEq/L 134-147 N POTASSIUM (test code = K) 3.7 mEq/L 3.4-5.0 N CHLORIDE (test code = CL) 104 mEq/L 100-108 N CARBON DIOXIDE (test code = CO2) 23 mEq/l 21-33 N ANION GAP (test code = GAP) 11 0-20 N GLUCOSE (test code = GLU) 103 mg/dL 70-110 N BLOOD UREA NITROGEN (test code = BUN) 8 mg/dL 7-18 N GLOMERULAR FILTRATION RATE (test code = GFR) 121.5 105-110 H The Glomerular Filtration Rate is a calculated parameterbased on serum Creatinine, patient age and sex. GFR valuesless than 60 mL/min/1.73 square meters are indicative ofChronic Kidney Disease. Values less than 15 mL/min/1.73square meters indicate Kidney failure. The calculation forGFR is based on the CKD-EPI (2020) calculation. This formulais race indifferent and is the recommended formula for GFRby the National Kidney Foundation for Adults.The GFR will not calculate if the sex is unknown or if thepatient's age is <18 years. CREATININE (test code = CREAT) 0.6 mg/dL 0.6-1.3 N TOTAL PROTEIN (test code = PROT) 6.4 g/dL 6.4-8.2 N ALBUMIN (test code = ALB) 2.60 g/dL 3.4-5.0 L CALCIUM (test code = CA) 7.5 mg/dL 8.0-10.5 L BILIRUBIN TOTAL (test code = BILT) 0.30 mg/dL 0.0-1.0 N SGOT/AST (test code = AST) 18 IUnit/L 15-37 N SGPT/ALT (test code = ALT) 17 IUnit/L 30-65 L ALKALINE PHOSPHATASE TOTAL (test code = ALKP) 104 IUnit/L 20-125 N URIC [id number] 23:37:00* Test Item Value Reference Range Interpretation Comme nts URIC ACID (test code = URIC) 5.3 mg/dL 2.6-7.2 N LACTIC DEHYDROGENASE(LDH)2022-03-27 23:37:00* Test Item Value Reference Range Interpretation Comme nts LACTIC DEHYDROGENASE(LDH) (t est code = LDH) 179 IUnits/L 84-246 N [id number] 23:37:00* Test Item Value Reference Range Interpretation Comme nts MAGNESIUM (test code = MAG) 5.56 mg/dL 1.80-2.40 HH CBC W/AUTO [id number] 23:11:00* Test Item Value Reference Range Interpretation Comme nts WHITE BLOOD CELL (test code = WBC) 10.0 x10 3/uL 4.5-11.0 N RED BLOOD CELL (test code = RBC) 3.56 x10 6/uL 3.54-5.02 N HEMOGLOBIN (test code = HGB) 9.3 g/dL 11.0-15.0 L HEMATOCRIT (test code = HCT) 30.6 % 33.0-45.0 L MEAN CELL VOLUME (test code = MCV) 86.0 fL 81.0-99.0 N MEAN CELL HGB (test code = MCH) 26.1 pg 27.0-33.0 L MEAN CELL HGB CONCETRATION (test code = MCHC) 30.4 g/dL 33.0-37.0 L RED CELL DISTRIBUTION WIDTH CV (test code = RDW) 16.1 % 11.5-14.5 H RED CELL DISTRIBUTION WIDTH SD (test code = RDW-SD) 50.9 fL 37.0-54.0 N PLATELET COUNT (test code = PLT) 382 x10 3/uL 150-400 N MEAN PLATELET VOLUME (test c ode = MPV) 9.2 fL 7.0-9.0 H NEUTROPHIL % (test code = NT%) 72.9 % 56.0-77.0 N IMMATURE GRANULOCYTE % (test code = IG%) 0.6 % 0.0-2.0 N LYMPHOCYTE % (test code = LY%) 18.4 % 14.0-32.0 N MONOCYTE % (test code = MO%) 6.7 % 4.8-9.0 N EOSINOPHIL % (test code = EO%) 0.9 % 0.3-3.7 N BASOPHIL % (test code = BA%) 0.5 % 0.0-2.0 N NUCLEATED RBC % (test code = NRBC%) 0.3 % 0-0 H NEUTROPHIL # (test code = NT#) 7.25 x10 3/uL 2.0-7.6 N IMMATURE GRANULOCYTE # (test code = IG#) 0.06 x10 3/uL 0.00-0.03 H LYMPHOCYTE # (test code = LY#) 1.83 x10 3/uL 1.0-3.8 N MONOCYTE # (test code = MO#) 0.67 x10 3/uL 0.1-0.8 N EOSINOPHIL # (test code = EO#) 0.09 x10 3/uL 0.0-0.2 N BASOPHIL # (test code = BA#) 0.05 x10 3/uL 0.0-0.2 N NUCLEATED RBC # (test code = NRBC#) 0.03 x10 3/uL 0.0-0.1 N MANUAL DIFF REQUIRED (test c ode = MDIFF) NO RAPID PLASMA [id number] 10:46:00* Test Item Value Reference Range Interpretation Comme nts RAPID PLASMA REAGIN (test co de = RPR) NONREACTIVE NONREACTIVE AG HEPATITIS B [id number] 10:46:00* Test Item Value Reference Range Interpretation Comme nts AG HEPATITIS B SURFACE (test code = HBSAG) NON REACTIVE INDEX NonReactive AB HIV 1 10:46:00* Test Item Value Reference Range Interpretation Comme nts AB HIV 1 2 (test code = COC34XC) Nonreactive Nonreactive [id number] 05:15:00* Test Item Value Reference Range Interpretation Comme nts MAGNESIUM (test code = MAG) 4.07 mg/dL 1.80-2.40 HH COMMENTS: 6 hours after loading doseDRUGS OF ABUSE SCREEN [id number] 05:11:00 * Test Item Value Reference Range Interpretation Comme nts URN COCAINE (test code = COCAURN) NEGATIVE NEGATIVE URN CANNABINOIDS (test code = CANNABURN) NEGATIVE NEGATIVE URN AMPHETAMINE (test code = AMPHETURN) NEGATIVE NEGATIVE URN BARBITURATE (test code = BARBITURN) NEGATIVE NEGATIVE URN BENZODIAZEPINE (test code = BENZOURN) NEGATIVE NEGATIVE Cut-off v alue:200 ng/mL URN OPIATES (test code = OPIATURN) NEGATIVE NEGATIVE Cut-off value:20 00 ng/mL URN PHENCYCLIDINE (PCP) (test code = PHENCURN) NEGATIVE NEGATIVE Cutoffs:B arbiturates 200 ng/mLBenzodiazepines 200 ng/mLTHC Cannabinoids 50 ng/mLOpiates(Morphine) 2000 ng/mLAmphetamine 1000 ng/mLCocaine 300 ng/mLPCP phencyclidine 25 ng/mL Unconfirmed screening results shouldnot be used for non-medical purposes. GLUCOSE [id number] 22:54:00* Test Item Value Reference Range Interpretation Comme nts GLUCOSE BEDSIDE (test code = GLUBED) 102 MG/DL 70-110 N Performed by cer tified shotblast operator at [facility] CBC W/AUTO [id number] 21:55:00* Test Item Value Reference Range Interpretation Comme nts WHITE BLOOD CELL (test code = WBC) 8.9 x10 3/uL 4.5-11.0 N RED BLOOD CELL (test code = RBC) 3.29 x10 6/uL 3.54-5.02 L HEMOGLOBIN (test code = HGB) 8.5 g/dL 11.0-15.0 L HEMATOCRIT (test code = HCT) 28.8 % 33.0-45.0 L MEAN CELL VOLUME (test code = MCV) 87.5 fL 81.0-99.0 N MEAN CELL HGB (test code = MCH) 25.8 pg 27.0-33.0 L MEAN CELL HGB CONCETRATION (test code = MCHC) 29.5 g/dL 33.0-37.0 L RED CELL DISTRIBUTION WIDTH CV (test code = RDW) 15.9 % 11.5-14.5 H RED CELL DISTRIBUTION WIDTH SD (test code = RDW-SD) 50.8 fL 37.0-54.0 N PLATELET COUNT (test code = PLT) 400 x10 3/uL 150-400 N MEAN PLATELET VOLUME (test c ode = MPV) 9.9 fL 7.0-9.0 H NEUTROPHIL % (test code = NT%) 70.2 % 56.0-77.0 N IMMATURE GRANULOCYTE % (test code = IG%) 0.5 % 0.0-2.0 N LYMPHOCYTE % (test code = LY%) 21.1 % 14.0-32.0 N MONOCYTE % (test code = MO%) 7.2 % 4.8-9.0 N EOSINOPHIL % (test code = EO%) 0.8 % 0.3-3.7 N BASOPHIL % (test code = BA%) 0.2 % 0.0-2.0 N NUCLEATED RBC % (test code = NRBC%) 0.9 % 0-0 H NEUTROPHIL # (test code = NT#) 6.24 x10 3/uL 2.0-7.6 N IMMATURE GRANULOCYTE # (test code = IG#) 0.04 x10 3/uL 0.00-0.03 H LYMPHOCYTE # (test code = LY#) 1.87 x10 3/uL 1.0-3.8 N MONOCYTE # (test code = MO#) 0.64 x10 3/uL 0.1-0.8 N EOSINOPHIL # (test code = EO#) 0.07 x10 3/uL 0.0-0.2 N BASOPHIL # (test code = BA#) 0.02 x10 3/uL 0.0-0.2 N NUCLEATED RBC # (test code = NRBC#) 0.08 x10 3/uL 0.0-0.1 N MANUAL DIFF REQUIRED (test c ode = MDIFF) NO TOTAL IRON BINDING [id number] 13:12:00* Test Item Value Reference Range Interpretation Comme nts SERUM IRON (test code = IRON) 24 mcg/dL 35-150 L TOTAL IRON BINDING CAPACITY (test code = TIBC) 464 mcg/dL 260-445 H UIBC (test code = UIBC) 440 mcg/dL IRON SATURATION (test code = FESAT) 5.2 % 14-34 L VITAMIN [id number] 13:12:00* Test Item Value Reference Range Interpretation Comme nts VITAMIN B12 (test code = VITB12) 469 pg/mL 193-986 N FOLIC [id number] 13:12:00* Test Item Value Reference Range Interpretation Comme nts FOLIC ACID (test code = FOL) 30.3 ng/mL 3.1-17.5 H [id number] 13:12:00* Test Item Value Reference Range Interpretation Comme nts FERRITIN (test code = FRANSISCO) 3.6 ng/mL 11.0-306.8 L HGB [id number] 13:12:00* Test Item Value Reference Range Interpretation Comme nts HEMOGLOBIN A (test code = HGBA) 97.9 % 96.4-98.8 HEMOGLOBIN A2 (test code = HGBA2) 2.1 % 1.8-3.2 HEMOGLOBIN S (test code = HGBS) 0.0 % See_Comment [Automated messa ge] The system which generated this result transmitted reference range: 0.0. The reference range was not used to interpret this result as normal/abnormal. HEMOGLOBIN F (test code = HGBF) 0.0 % 0.0-2.0 HGB ELECTROPHORESIS INTERP (test code = HGBINT) See_Comment Normal hemoglobi n present; no hemoglobin variant or betathalassemia identified.Note: Alpha thalassemia may not be detected by the HgbFractionation [place] panel. If alpha thalassemia issuspected, [facility] offers Alpha-Thalassemia DNA Analysis(#[id number]).Perfor med At: [facility] [facility] [address] [place], [place] [id number] CN MD Ph:[phone] reported result: Edited by: BLANQUITA on 03/26/22:[id number] 1312: HGBINT previously reported as: [Automated message] The system which generated this result transmitted reference range: (). The reference range was not used to interpret this result as normal/abnormal. UR CALCIUM [id number] 11:08:00* Test Item Value Reference Range Interpretation Comme nts UR CALCIUM RANDOM (test code = CAU) 11.1 mg/dL Not Estab. UR CALCIUM 24HR (test code = CA24T) 194 mg/24 hr 0-320 Performed At : [facility] [id number] Maury Mittal MD Ph:[phone] TOTAL VOLUME 1750 [id number] 15:10:00* Test Item Value Reference Range Interpretation Comme nts TRANSFERRRIN (test code = TRANSF) 355 mg/dL 192-364 Performed At: [facility] [facility] [address] [place], [place] [id number] CN MD Ph:[phone] UR CREATININE CLEARANCE [id number] 14:06:00* Test Item Value Reference Range Interpretation Comme nts CREATININE CLEARANCE RESULT (test code = CREATCLR) 145 MLS/MIN 70-130 H CREATININE (test code = CREAT) 0.8 mg/dL 0.6-1.3 N UR CREATININE RANDOM (test code = CREATU) 95.4 mg/dL The Reference Ra nge and Method Performance specificationshave not been established for this fluid. The test resultshould be correlated into the clinical context forinterpretation. UR CREATININE 24HR (test code = [id number]) 1.7 GM/24HR 1.0-1.6 H UR VOLUME (test code = VOL) 1750 mL UR COLLECTION TIME (test code = COLTM) 1440 MIN UR PROTEIN [id number] 14:06:00* Test Item Value Reference Range Interpretation Comme nts UR PROTEIN RANDOM (test code = PROTU) 30 mg/dL UR PROTEIN 24HR (test code = MFIS01A) 525 MG/24HR 0-150 RAPID PLASMA [id number] 11:14:00* Test Item Value Reference Range Interpretation Comme nts RAPID PLASMA REAGIN (test co de = RPR) NONREACTIVE NONREACTIVE AG HEPATITIS B [id number] 10:03:00* Test Item Value Reference Range Interpretation Comme nts AG HEPATITIS B SURFACE (test code = HBSAG) NON REACTIVE INDEX NonReactive AB HIV 1 10:03:00* Test Item Value Reference Range Interpretation Comme nts AB HIV 1 2 (test code = [id number]) Nonreactive Nonreactive DRUGS OF ABUSE SCREEN [id number] 09:41:00* Test Item Value Reference Range Interpretation Comme nts URN COCAINE (test code = COCAURN) NEGATIVE NEGATIVE URN CANNABINOIDS (test code = CANNABURN) NEGATIVE NEGATIVE URN AMPHETAMINE (test code = AMPHETURN) POSITIVE NEGATIVE A URN BARBITURATE (test code = BARBITURN) NEGATIVE NEGATIVE URN BENZODIAZEPINE (test code = BENZOURN) NEGATIVE NEGATIVE Cut-off v alue:200 ng/mL URN OPIATES (test code = OPIATURN) NEGATIVE NEGATIVE Cut-off value:20 00 ng/mL URN PHENCYCLIDINE (PCP) (test code = PHENCURN) NEGATIVE NEGATIVE Cutoffs:B arbiturates 200 ng/mLBenzodiazepines 200 ng/mLTHC Cannabinoids 50 ng/mLOpiates(Morphine) 2000 ng/mLAmphetamine 1000 ng/mLCocaine 300 ng/mLPCP phencyclidine 25 ng/mL Unconfirmed screening results shouldnot be used for non-medical purposes. URINALYSIS [id number] 09:31:00* Test Item Value Reference Range Interpretation Comme nts UA COLOR (test code = COLU) YELLOW YEL/STRAW UA APPEARANCE (test code = APPU) CLEAR CLEAR UA GLUCOSE DIPSTICK (test co de = DGLUU) 1+ NEGATIVE A UA BILIRUBIN DIPSTICK (test code = BILU) NEGATIVE NEGATIVE UA KETONE DIPSTICK (test cod e = KETU) NEGATIVE NEGATIVE UA SPECIFIC GRAVITY (test co de = SGU) 1.017 1.005-1.030 N UA BLOOD DIPSTICK (test code = RUFINO) 1+ NEGATIVE A UA PH DIPSTICK (test code = MAKAYLA) 6.0 5.0-7.0 N UA PROTEIN DIPSTICK (test co de = PROU) NEGATIVE NEGATIVE UA UROBILINIOGEN DIPSTICK (t est code = URO) 0.2 mg/dL 0.2-1.0 UA NITRITE DIPSTICK (test co de = MERARY) NEGATIVE NEGATIVE UA LEUKOCYTE ESTERASE DIPSTI CK (test code = LEUU) TRACE NEGATIVE A UA RBC (test code = RBCU) 21-50 RBC/HPF 0-3 UA WBC NO REFLEX (test code = WBCUCL) 4-9 WBC/HPF 0-3 A UA BACTERIA (test code = BACU) TRACE /HPF NONE SEEN UA SQUAMOUS CELLS (test code = SQU) 0-5 /HPF NONE SEEN UA MUCUS (test code = MUCU) TRACE /LPF NONE SEEN COMPREHENSIVE METABOLIC [id number] 09:30:00* Test Item Value Reference Range Interpretation Comme nts SODIUM (test code = NA) 134 mEq/L 134-147 N POTASSIUM (test code = K) 3.6 mEq/L 3.4-5.0 N CHLORIDE (test code = CL) 102 mEq/L 100-108 N CARBON DIOXIDE (test code = CO2) 25 mEq/l 21-33 N ANION GAP (test code = GAP) 11 0-20 N GLUCOSE (test code = GLU) 115 mg/dL 70-110 H BLOOD UREA NITROGEN (test code = BUN) 11 mg/dL 7-18 N GLOMERULAR FILTRATION RATE (test code = GFR) 99.7 105-110 L The Glomerular Filtration Rate is a calculated parameterbased on serum Creatinine, patient age and sex. GFR valuesless than 60 mL/min/1.73 square meters are indicative ofChronic Kidney Disease. Values less than 15 mL/min/1.73square meters indicate Kidney failure. The calculation forGFR is based on the CKD-EPI (202) calculation. This formulais race indifferent and is the recommended formula for GFRby the National Kidney Foundation for Adults.The GFR will not calculate if the sex is unknown or if thepatient's age is <18 years. CREATININE (test code = CREAT) 0.8 mg/dL 0.6-1.3 N TOTAL PROTEIN (test code = PROT) 7.1 g/dL 6.4-8.2 N ALBUMIN (test code = ALB) 2.90 g/dL 3.4-5.0 L CALCIUM (test code = CA) 8.4 mg/dL 8.0-10.5 N BILIRUBIN TOTAL (test code = BILT) 0.30 mg/dL 0.0-1.0 N SGOT/AST (test code = AST) 17 IUnit/L 15-37 N SGPT/ALT (test code = ALT) 9 IUnit/L 30-65 L ALKALINE PHOSPHATASE TOTAL (test code = ALKP) 102 IUnit/L 20-125 N URIC [id number] 09:30:00* Test Item Value Reference Range Interpretation Comme nts URIC ACID (test code = URIC) 6.0 mg/dL 2.6-7.2 N LACTIC DEHYDROGENASE(LDH)2022-03-21 09:30:00* Test Item Value Reference Range Interpretation Comme nts LACTIC DEHYDROGENASE(LDH) (t est code = LDH) 170 IUnits/L 84-246 N CBC W/AUTO [id number] 09:07:00* Test Item Value Reference Range Interpretation Comme nts WHITE BLOOD CELL (test code = WBC) 9.5 x10 3/uL 4.5-11.0 RED BLOOD CELL (test code = RBC) 3.64 x10 6/uL 3.54-5.02 N HEMOGLOBIN (test code = HGB) 9.5 g/dL 11.0-15.0 L HEMATOCRIT (test code = HCT) 31.7 % 33.0-45.0 L MEAN CELL VOLUME (test code = MCV) 87.1 fL 81.0-99.0 N MEAN CELL HGB (test code = MCH) 26.1 pg 27.0-33.0 L MEAN CELL HGB CONCETRATION (test code = MCHC) 30.0 g/dL 33.0-37.0 L RED CELL DISTRIBUTION WIDTH CV (test code = RDW) 15.6 % 11.5-14.5 H RED CELL DISTRIBUTION WIDTH SD (test code = RDW-SD) 49.9 fL 37.0-54.0 N PLATELET COUNT (test code = PLT) 446 x10 3/uL 150-400 H MEAN PLATELET VOLUME (test c ode = MPV) 9.5 fL 7.0-9.0 H NEUTROPHIL % (test code = NT%) 87.5 % 56.0-77.0 H IMMATURE GRANULOCYTE % (test code = IG%) 1.2 % 0.0-2.0 N LYMPHOCYTE % (test code = LY%) 9.0 % 14.0-32.0 L MONOCYTE % (test code = MO%) 2.2 % 4.8-9.0 L EOSINOPHIL % (test code = EO%) 0.1 % 0.3-3.7 L BASOPHIL % (test code = BA%) 0.0 % 0.0-2.0 N NUCLEATED RBC % (test code = NRBC%) 0.3 % 0-0 H NEUTROPHIL # (test code = NT#) 8.27 x10 3/uL 2.0-7.6 H IMMATURE GRANULOCYTE # (test code = IG#) 0.11 x10 3/uL 0.00-0.03 H LYMPHOCYTE # (test code = LY#) 0.85 x10 3/uL 1.0-3.8 L MONOCYTE # (test code = MO#) 0.21 x10 3/uL 0.1-0.8 N EOSINOPHIL # (test code = EO#) 0.01 x10 3/uL 0.0-0.2 N BASOPHIL # (test code = BA#) 0.00 x10 3/uL 0.0-0.2 N NUCLEATED RBC # (test code = NRBC#) 0.03 x10 3/uL 0.0-0.1 N MANUAL DIFF REQUIRED (test c ode = MDIFF) NO [id number] 03:02:00* Test Item Value Reference Range Interpretation Comme nts MAGNESIUM (test code = MAG) 3.56 mg/dL 1.80-2.40 H UR PROTEIN [id number] 08:52:00* Test Item Value Reference Range Interpretation Comme nts UR PROTEIN RANDOM (test code = PROTU) 6 mg/dL UR PROTEIN 24HR (test code = [id number]) 210 MG/24HR 0-150 UR CREATININE CLEARANCE [id number] 08:52:00* Test Item Value Reference Range Interpretation Comme nts CREATININE CLEARANCE RESULT (test code = CREATCLR) 430 MLS/MIN 70-130 H CREATININE (test code = CREAT) 0.3 mg/dL 0.6-1.3 L UR CREATININE RANDOM (test code = CREATU) 53.1 mg/dL The Reference Ra nge and Method Performance specificationshave not been established for this fluid. The test resultshould be correlated into the clinical context forinterpretation. UR CREATININE 24HR (test code = ENZD12V) 1.9 GM/24HR 1.0-1.6 H UR VOLUME (test code = VOL) 3500 mL UR COLLECTION TIME (test code = COLTM) 1440 MIN COMPREHENSIVE METABOLIC [id number] 12:43:00* Test Item Value Reference Range Interpretation Comme nts SODIUM (test code = NA) 138 mEq/L 134-147 N POTASSIUM (test code = K) 3.6 mEq/L 3.4-5.0 N CHLORIDE (test code = CL) 110 mEq/L 100-108 H CARBON DIOXIDE (test code = CO2) 22 mEq/l 21-33 N ANION GAP (test code = GAP) 9 0-20 N GLUCOSE (test code = GLU) 79 mg/dL 70-110 N BLOOD UREA NITROGEN (test code = BUN) 6 mg/dL 7-18 L GLOMERULAR FILTRATION RATE (test code = GFR) 310.0 105-110 H Units of measure = ml/min/1.73 m2 CREATININE (test code = CREAT) 0.3 mg/dL 0.6-1.3 L TOTAL PROTEIN (test code = PROT) 6.3 g/dL 6.4-8.2 L ALBUMIN (test code = ALB) 2.70 g/dL 3.4-5.0 L CALCIUM (test code = CA) 7.7 mg/dL 8.0-10.5 L BILIRUBIN TOTAL (test code = BILT) 0.30 mg/dL 0.0-1.0 N SGOT/AST (test code = AST) 11 IUnit/L 15-37 L SGPT/ALT (test code = ALT) < 7 IUnit/L 30-65 L ALKALINE PHOSPHATASE TOTAL (test code = ALKP) 52 IUnit/L 20-125 N CBC W/AUTO [id number] 12:17:00* Test Item Value Reference Range Interpretation Comme nts WHITE BLOOD CELL (test code = WBC) 6.5 x10 3/uL 4.5-11.0 N RED BLOOD CELL (test code = RBC) 2.90 x10 6/uL 3.54-5.02 L HEMOGLOBIN (test code = HGB) 8.2 g/dL 11.0-15.0 L HEMATOCRIT (test code = HCT) 26.6 % 33.0-45.0 L MEAN CELL VOLUME (test code = MCV) 91.7 fL 81.0-99.0 N MEAN CELL HGB (test code = MCH) 28.3 pg 27.0-33.0 N MEAN CELL HGB CONCETRATION (test code = MCHC) 30.8 g/dL 33.0-37.0 L RED CELL DISTRIBUTION WIDTH CV (test code = RDW) 15.7 % 11.5-14.5 H RED CELL DISTRIBUTION WIDTH SD (test code = RDW-SD) 51.8 fL 37.0-54.0 N PLATELET COUNT (test code = PLT) 326 x10 3/uL 150-400 N MEAN PLATELET VOLUME (test c ode = MPV) 9.2 fL 7.0-9.0 H NEUTROPHIL % (test code = NT%) 68.1 % 56.0-77.0 N IMMATURE GRANULOCYTE % (test code = IG%) 0.3 % 0.0-2.0 N LYMPHOCYTE % (test code = LY%) 21.7 % 14.0-32.0 N MONOCYTE % (test code = MO%) 7.9 % 4.8-9.0 N EOSINOPHIL % (test code = EO%) 1.7 % 0.3-3.7 N BASOPHIL % (test code = BA%) 0.3 % 0.0-2.0 N NUCLEATED RBC % (test code = NRBC%) 0.0 % 0-0 N NEUTROPHIL # (test code = NT#) 4.40 x10 3/uL 2.0-7.6 N IMMATURE GRANULOCYTE # (test code = IG#) 0.02 x10 3/uL 0.00-0.03 N LYMPHOCYTE # (test code = LY#) 1.40 x10 3/uL 1.0-3.8 N MONOCYTE # (test code = MO#) 0.51 x10 3/uL 0.1-0.8 N EOSINOPHIL # (test code = EO#) 0.11 x10 3/uL 0.0-0.2 N BASOPHIL # (test code = BA#) 0.02 x10 3/uL 0.0-0.2 N NUCLEATED RBC # (test code = NRBC#) 0.00 x10 3/uL 0.0-0.1 N MANUAL DIFF REQUIRED (test c ode = MDIFF) NO [id number] 09:00:00* Test Item Value Reference Range Interpretation Comme nts MAGNESIUM (test code = MAG) 3.82 mg/dL 1.80-2.40 H COMMENTS: 6 hours after loading doseTOTAL BETA HCG [id number] 21:38:03* Test Item Value Reference Range Interpretation Comme nts BETA HCG (test code = [id number]) See_Comment [Automated messa ge] The system which generated this result transmitted reference range: Non- female and male patients: <5 mIU/mL. The reference range was not used to interpret this result as normal/abnormal. JOSH (test code = JOSH) Gestational Age ?Range (mIU/mL) 1-10 ?Weeks ?[id number] Weeks ?[id number] Weeks ?[id number] Weeks ?[id number] Biotin has been reported to cause a negative bias, interpret results relative to patient's use of biotin. [facility] Notes Date/Time Note Provider Source 2022-03-31 11:48:00 [facility] ([facility]) OB Postpart Progr Note REPORT#:[id number] REPORT STATUS: Signed DATE:03/31/22 TIME: 1148 PATIENT: RADHA ABBOTT UNIT #: [id number] ROOM/BED: [place] [address] : 88 AGE: 31 SEX: F ATTEND: Nuzhat Villatoro MD ADM AUTHOR: Omer Hough MD * ALL edits or amendments must be made on the electronic/computer document * Subjective Subjective Admission EGA: Weeks: 33 Days: 3 EGA at delivery (wks/days): 33w5d Status/Day: post (day 3) Patient reports: Patient reports: Yes normal lochia, Yes pain management effective, Yes tolerating po well, Yes voiding well, Yes voiding without pain, Yes tolerating ambulation Objective Nursing Documentation Review Nursing Data: The data set between the solid lines has been imported from nursing documentation. Any exceptions have been noted below under Provider comments. Feeding preference: Post hemorrhage risk score: High Risk for Hemorrhage Provider comments on imported nursing data: [] General VS: Vital Signs: Date Time Temp Pulse Resp B/P B/P Pulse O2 O2 Flow FiO2 Mean Ox Delivery Rate 03/31 0832 110.0 03/31 0832 97 141/89 03/31 0712 36.8 17 03/31 0526 102.0 03/31 0526 90 142/76 03/31 0510 124.0 03/31 0510 36.8 93 16 174/91 98 03/30 2328 89.0 03/30 2328 36.9 106 16 128/65 98 03/30 1920 111.0 03/30 1920 88 140/91 03/30 1400 100.0 03/30 1400 83 17 142/70 100 03/30 1350 100.0 03/30 1350 81 142/71 03/30 1340 97.0 03/30 1340 81 137/70 03/30 1330 89.0 03/30 1330 80 129/63 03/30 1320 99.0 03/30 1320 87 140/71 03/30 1311 94.0 03/30 1311 81 136/68 03/30 1257 121.0 03/30 1257 79 166/90 03/30 1248 111.0 03/30 1248 97 151/83 03/30 1237 101.0 03/30 1237 93 142/74 03/30 1227 103.0 03/30 1227 80 139/80 03/30 1209 115.0 03/30 1209 91 165/80 03/30 1153 113.0 03/30 1153 90 167/79 03/30 115 36.9 17 100 PATIENT WEIGHT: Weight (lb): 234 Weight (oz): 9.15 Weight (kg): 106.400 Physical Exam Lungs: symmetrical non labored respiration Neuro: Exam: alert, normal speech Abdomen: soft, no abnormal tenderness, no guarding, no rebound tenderness Uterus: firm, non-tender Fundus: firm, below the umbilicus, non-tender Lacerations: High vaginal laceration: bilateral hemostatic periurethral tears Diagnosis, Assessment Plan Diagnosis, Assessment Plan Free text A P: Ms. Abbott is a 31 yo female PPD#2 s/p at 33w5d admit for IOL for SI PreE. complicated by CHTN (on Procardia 30 mg AM/60 mg PM), substance abuse (UDS positive at [facility] and last hospital admission for amphetamines), tobacco use, anemia, FGR (<10th%ile), and medical non compliance. Patient meeting all post milestones and currently on Magnesium for seizure prophylaxis for 24 hours after delivery. - Analgesia PRN - Continue PNVs and Fe (latter for iron deficiency anemia) - Antiemetics/GI PPx/bowel regimen scheduled and PRN - Ambulation/SCDs for DVT PPx F: None E: WNL N: Regular diet CHTN w/SI PreE - PIH labs reviewed this AM and notable for anemia. - Continue to monitor BPs. - IV antihypertensives PRN. - s/p magnesium for seizure prophylaxis x24 hours - Increased Procardia 60 mg BID, add labetalol UTI - treated Bacterial vaginosis - Flagyl 500 mg BID for 7 days - Identified via NuSwab collected in clinic on 03/26 Disposition: Discharge home. Patient aware to schedule appointments for BP check in 1 wk and post visit in 4-6 wks. Assessment: nml progress, chronic hypertension Plan: routine care, discharge today at 1227 RPT #:[id number] END OF REPORT [facility] 2022-03-30 13:57:00 [facility] ([facility]) OB Postpart Progr Note REPORT#:[id number] REPORT STATUS: Signed DATE:03/30/22 TIME: 1357 PATIENT: RADHA ABBOTT UNIT #: [id number] ROOM/BED: [place] [address] : 88 AGE: 31 SEX: F ATTEND: Nuzhat Villatoro MD ADM AUTHOR: Omer Hough MD * ALL edits or amendments must be made on the electronic/computer document * Subjective Subjective Admission EGA: Weeks: 33 Days: 3 EGA at delivery (wks/days): 33w5d Status/Day: post (day 2) Patient reports: Patient reports: Yes normal lochia, Yes pain management effective, Yes tolerating po well, Yes voiding well, Yes voiding without pain, Yes tolerating ambulation Objective Nursing Documentation Review Nursing Data: The data set between the solid lines has been imported from nursing documentation. Any exceptions have been noted below under Provider comments. Feeding preference: Post hemorrhage risk score: High Risk for Hemorrhage Provider comments on imported nursing data: [] General VS: Vital Signs: Date Time Temp Pulse Resp B/P B/P Pulse O2 O2 Flow FiO2 Mean Ox Delivery Rate 03/30 1257 121.0 03/30 1257 79 166/90 03/30 1248 111.0 03/30 1248 97 151/83 03/30 1237 101.0 03/30 1237 93 142/74 03/30 1227 103.0 03/30 1227 80 139/80 03/30 1209 115.0 03/30 1209 91 165/80 03/30 1153 113.0 03/30 1153 90 167/79 03/30 1153 36.9 17 100 03/30 1145 83 100 03/30 0729 109.0 03/30 0729 84 17 153/84 98 03/30 0726 90 97 03/30 0721 84 97 03/30 0716 83 98 03/30 0714 117.0 03/30 0714 36.9 84 18 162/85 98 03/30 0711 94 98 03/30 0433 100.0 03/30 0433 84 142/71 03/30 0432 88 95 03/30 0025 97.0 03/30 0025 37.0 96 18 139/67 96 03/30 0024 96 92 03/29 2002 114.0 03/29 2002 86 158/84 03/29 2001 89 100 03/29 1951 36.9 18 03/29 1804 104.0 03/29 1804 91 143/78 03/29 1602 103.0 03/29 1602 88 147/72 03/29 1559 118.0 03/29 1559 92 163/88 03/29 1547 92 99 03/29 1542 92 100 03/29 1537 86 100 03/29 1532 88 100 03/29 1527 90 100 03/29 1526 114.0 03/29 1526 88 167/80 03/29 1522 99 98 03/29 1517 92 99 03/29 1512 87 99 03/29 1507 87 99 03/29 1502 99 99 03/29 1457 96 91 03/29 1452 86 99 03/29 1447 96 100 03/29 1442 88 99 03/29 1437 88 100 03/29 1432 92 100 03/29 1427 87 100 03/29 1426 106.0 03/29 1426 84 148/76 03/29 1422 83 100 03/29 1417 85 99 03/29 1412 86 100 03/29 1407 86 100 PATIENT WEIGHT: Weight (lb): 234 Weight (oz): 9.15 Weight (kg): 106.400 Physical Exam Lungs: symmetrical non labored respiration Neuro: Exam: alert, normal speech Abdomen: soft, no abnormal tenderness, no guarding, no rebound tenderness Uterus: firm, non-tender Fundus: firm, below the umbilicus, non-tender Lacerations: High vaginal laceration: bilateral hemostatic periurethral tears Diagnosis, Assessment Plan Diagnosis, Assessment Plan Free text A P: Ms. Abbott is a 31 yo female PPD#2 s/p at 33w5d admit for IOL for SI PreE. complicated by CHTN (on Procardia 30 mg AM/60 mg PM), substance abuse (UDS positive at [facility] and last hospital admission for amphetamines), tobacco use, anemia, FGR (<10th%ile), and medical non compliance. Patient meeting all post milestones and currently on Magnesium for seizure prophylaxis for 24 hours after delivery. - Analgesia PRN - Continue PNVs and Fe (latter for iron deficiency anemia) - Antiemetics/GI PPx/bowel regimen scheduled and PRN - Ambulation/SCDs for DVT PPx F: None E: WNL N: Regular diet CHTN w/SI PreE - PIH labs reviewed this AM and notable for anemia. - Continue to monitor BPs. - IV antihypertensives PRN. - s/p magnesium for seizure prophylaxis x24 hours - Increased Procardia 60 mg BID, add labetalol UTI - treated Bacterial vaginosis - Flagyl 500 mg BID for 7 days - Identified via NuSwab collected in clinic on 03/26 Disposition: Anticipate discharge PPD#3 pending on BP management. Patient aware to schedule appointments for BP check in 1 wk and post visit in 4-6 wks. Assessment: nml progress, chronic hypertension Plan: routine care, discharge today at 1421 RPT #:[id number] END OF REPORT [facility] 2022-03-29 09:12:00 [facility] ([facility]) OB Disch REPORT#:[id number] REPORT STATUS: Signed DATE:03/29/22 TIME: 911 PATIENT: RADHA ABBOTT UNIT #: [id number] ROOM/BED: [place] [address] : 88 AGE: 31 SEX: F ATTEND: Nuzhat Villatoro MD ADM AUTHOR: Nuzhat Villatoro MD * ALL edits or amendments must be made on the electronic/computer document * See Addendum Subjective Subjective Admission EGA: Weeks: 33 Days: 3 EGA at delivery (wks/days): 33w5d Status/day: post Patient reports: Comments: Please refer to post progress note on day of discharge. Objective General VS: Vital Signs Date Temp Pulse Resp B/P B/P Mean Pulse Ox FiO2 03/28-03/29 97.6-98.1 66-114 16-18 118-179/56-10 82.0-138.0 93-100 7 Last Documented: Result Date Time Pulse Ox 97 03/29 803 Pulse 83 03/29 803 Temp 97.7 03/29 758 Resp 16 03/29 758 B/P Mean 113.0 03/29 758 B/P 145/91 03/29 758 PATIENT WEIGHT: Weight (lb): 234 Weight (oz): 9.15 Weight (kg): 106.400 Notes: Please refer to post progress note on day of discharge. Results Findings/Data: Laboratory Tests: 03/29 03/28 03/28 03/27 0630 0710 UNK 2300 Blood Gas Cord VBG pH (7.25 - 7.45) 7.33 Cord VBG pCO2 (27 - 49 mmHg) 43 Cord VBG pO2 (17 - 41 mmHg) 25 Cord VBG HCO3 (12 - 28 MMOL/L) 22.1 Cord VBG Base Excess (-8.0 - 0.00 mmol/L) -3.9 Cord VBG O2 Sat (%) 41 Chemistry Sodium (134 - 147 mEq/L) 135 134 134 Potassium (3.4 - 5.0 mEq/L) 4.4 3.8 3.7 Chloride (100 - 108 mEq/L) 105 103 104 Carbon Dioxide (21 - 33 mEq/l) 24 23 23 Anion Gap (0 - 20) 10 12 11 BUN (7 - 18 mg/dL) 6 L 8 8 Creatinine (0.6 - 1.3 mg/dL) 0.7 0.7 0.6 Glomerular Filtr Rate (105 - 110) 117.0 H 117.0 H 121.5 H Glucose (70 - 110 mg/dL) 85 91 103 Uric Acid (2.6 - 7.2 mg/dL) 5.7 5.3 Calcium (8.0 - 10.5 mg/dL) 7.0 L 7.5 L 7.5 L Magnesium (1.80 - 2.40 mg/dL) 5.56 *H Total Bilirubin (0.0 - 1.0 mg/dL) 0.20 0.30 0.30 AST (15 - 37 IUnit/L) 14 L 16 18 ALT (30 - 65 IUnit/L) 12 L 16 L 17 L Total Alk Phosphatase (20 - 125 IUnit/L) 91 102 104 Lactate Dehydrogenase (84 - 246 IUnits/L) 183 179 Total Protein (6.4 - 8.2 g/dL) 5.9 L 6.3 L 6.4 Albumin (3.4 - 5.0 g/dL) 2.40 L 2.50 L 2.60 L Hematology WBC (4.5 - 11.0 x10 3/uL) 11.6 H 7.8 10.0 RBC (3.54 - 5.02 x10 6/uL) 3.00 L 3.49 L 3.56 Hgb (11.0 - 15.0 g/dL) 7.8 L 9.1 L 9.3 L Hct (33.0 - 45.0 %) 26.4 L 30.1 L 30.6 L MCV (81.0 - 99.0 fL) 88.0 86.2 86.0 MCH (27.0 - 33.0 pg) 26.0 L 26.1 L 26.1 L MCHC (33.0 - 37.0 g/dL) 29.5 L 30.2 L 30.4 L RDW (11.5 - 14.5 %) 16.2 H 16.5 H 16.1 H Plt Count (150 - 400 x10 3/uL) 314 404 H 382 MPV (7.0 - 9.0 fL) 9.2 H 9.5 H 9.2 H Neut % (Auto) (56.0 - 77.0 %) 74.9 70.7 72.9 Lymph % (Auto) (14.0 - 32.0 %) 14.8 20.1 18.4 [place] % (Auto) (4.8 - 9.0 %) 8.4 6.4 6.7 Eos % (Auto) (0.3 - 3.7 %) 0.9 1.4 0.9 Baso % (Auto) (0.0 - 2.0 %) 0.3 0.5 0.5 Neut # (Auto) (2.0 - 7.6 x10 3/uL) 8.65 H 5.54 7.25 Lymph # (Auto) (1.0 - 3.8 x10 3/uL) 1.71 1.57 1.83 [place] # (Auto) (0.1 - 0.8 x10 3/uL) 0.97 H 0.50 0.67 Eos # (Auto) (0.0 - 0.2 x10 3/uL) 0.10 0.11 0.09 Baso # (Auto) (0.0 - 0.2 x10 3/uL) 0.04 0.04 0.05 Abs Immat Gran (auto) (0.00 - 0.03 x10 3/uL) 0.08 H 0.07 H 0.06 H Add Manual Diff NO NO NO Immature Gran % (0.0 - 2.0 %) 0.7 0.9 0.6 Nucleated RBC % (0 - 0 %) 0.0 0.0 0.3 H Nucleated RBCs # (Man) (0.0 - 0.1 x10 3/uL) 0.00 0.00 0.03 Discharge Summary General Free Text A P: Ms. Abbott is a 31 yo female PPD#2 s/p at 33w5d admit for IOL for SI PreE. complicated by CHTN (on Procardia 60 mg BID), substance abuse ( UDS positive at [facility] and last hospital admission for amphetamines), tobacco use, anemia, FGR (<10th%ile), and medical non compliance. She is s/p inpatient treatment for UTI via 1 dose of IV Rocephin. Patient meeting all post milestones and is clinically stable for discharge. Patient instructed to schedule appointments at clinic for blood pressure check in 1 week and post visit in 6 weeks. She was prescribed analgesics, iron supplementation, blood pressure medication (Procardia 60 mg BID), and treament for bacterial vaginosis. PreE precautions reviewed with patient at the time of discharge. Assessment: nml progress, chronic hypertension Date of admission: Date of admission: 03/26/22 Admission diagnosis: HTN-chronic w/pre-eclamp, induction-medically indic Hospital course: cervical ripening, induction of labor, spontaneous vag delivery , epidural anesthesia, nml postop/postpart care Procedures: epidural anesthesia, spontaneous vaginal deliv Discharge condition: stable Discharge to: Home/Self Care Discharge diagnosis: chronic HTN w/pre-eclamp Baby A: Vaginal delivery: spontaneous status: live born Gender: male 1 minute: 6 5 minutes: 9 Anomalies: No gross anomalies. Nursing data: The data set between the solid lines has been imported from nursing documentation. Any exceptions have been noted below under Provider comments. Delivery date infant A: 03/28/22 Delivery time infant A: 1241 Birthweight (gm) infant A: 1720 Feeding preference: Gender infant A: Male 1 minute infant A: 6 5 minutes A: 9 10 minutes A: Provider comments on imported nursing data: [] Plan: routine care, discharge today Vaginal packing at delivery: No Discharge Instructions Instructions: routine instr sheet given, instr and warnings rev'd Diet: Regular Activity: Resume Normal Activity, As Tolerated, No [place] for 6 Wks, Nothing in vagina pre f/u Additional discharge routines: PCP Follow-Up Notify PCP of these S/S: Chest Pain, Pus-like discharge, Shortness of breath, Temp. 101 or greater Contraception discussed: abstinence for 4-6 weeks, will discuss at PP visit Discharge meds: Stop taking the following medications: ASPIRIN (ASPIRIN) 81 MG TAB.CHEW 81 MILLIGRAM ORAL DAILY. NIFEdipine XL (PROCARDIA XL) 30 MG TAB.SA 30 MILLIGRAM ORAL DAILY. hydrALAZINE (APRESOLINE) 50 MG TAB 50 MILLIGRAM ORAL THREE TIMES DAILY WITH MEALS. NITROFURANTOIN/NITROFURAN MAC (MACROBID) 100 MG CAP 100 MILLIGRAM ORAL TWICE DAILY. Continue taking these medications: VIT/FE FUMARATE/FA ( Multivitamin w/ Iron) 1 EACH TABLET 1 DAILY. Instructions: TAKE 1 DAILY Start taking the following new medications: IBUPROFEN (MOTRIN) 800 MG TAB 800 MILLIGRAM ORAL THREE TIMES A DAY. as needed for Pain Days = 15 Qty = 45 Refills = 1 ACETAMINOPHEN (TYLENOL) 500 MG TAB 1,000 MILLIGRAM ORAL FOUR TIMES A DAY. as needed for Pain not to exceed 4 g per day Days = 10 Qty = 80 No Refills Instructions: Follow label instructions for pain or fever. NIFEdipine XL (PROCARDIA XL) 60 MG TAB.SR.24H 60 MILLIGRAM ORAL TWICE DAILY. Days = 30 Qty = 60 Refills = 1 FERROUS SULFATE (FEOSOL) 325 MG (65 MG IRON) TAB 325 MILLIGRAM ORAL TWICE DAILY. Days = 30 Qty = 60 Refills = 1 metroNIDAZOLE (FLAGYL) 500 MG TAB 500 MILLIGRAM ORAL EVERY 12 HOURS. Days = 6 Qty = 12 No Refills Prescriptions: e-prescribe Add'l Follow-up Appointments Attending Physician: Attending Physician: Nuzhat Villatoro MD Phone: [phone] Special instructions: Please call clinic to schedule appointments. at 2051 Addendum 1: 12/11/22 1149 by Omer Hough MD Pt discharged home on day #3 in good condition. Prescriptions for BP management reviewed. at 1150 RPT #:[id number] END OF REPORT [facility] 2022-03-29 08:31:00 [facility] ([facility]) OB Postpart Progr Note REPORT#:[id number] REPORT STATUS: Signed DATE:03/29/22 TIME: 830 PATIENT: RADHA ABBOTT UNIT #: [id number] ROOM/BED: [place] [address] : 88 AGE: 31 SEX: F ATTEND: Nuzhat Villatoro MD ADM AUTHOR: Nuzhat Villatoro MD * ALL edits or amendments must be made on the electronic/computer document * Subjective Subjective Admission EGA: Weeks: 33 Days: 3 EGA at delivery (wks/days): 33w5d Status/Day: post (1) Patient reports: Patient reports: Yes normal lochia, Yes pain management effective, Yes tolerating po well, Yes voiding well, Yes voiding without pain, Yes tolerating ambulation, Yes flatus, Yes nausea, Yes vomiting, No no complaints, No bowel movement, No headache, No blurred vision Comments: She states that one episode of nausea and vomiting occurred once after apple juice but otherwise tolerating diet. She denies RUQ pain and anasarca. Objective Nursing Documentation Review Nursing Data: The data set between the solid lines has been imported from nursing documentation. Any exceptions have been noted below under Provider comments. Feeding preference: Post hemorrhage risk score: High Risk for Hemorrhage Provider comments on imported nursing data: [] General VS: Vital Signs: Date Time Temp Pulse Resp B/P B/P Pulse O2 O2 Flow FiO2 Mean Ox Delivery Rate 03/29 0758 113.0 03/29 0758 75 145/91 100 03/29 0753 76 98 03/29 0748 78 100 03/29 0621 76 100 03/29 0616 80 100 03/29 0611 71 97 03/29 0606 73 97 03/29 0601 71 96 03/29 0556 71 97 03/29 0551 73 96 03/29 0546 110.0 03/29 0546 72 148/84 97 03/29 0545 72 93 03/29 0541 79 96 03/29 0536 76 97 03/29 0531 75 97 03/29 0526 78 97 03/29 0521 79 97 03/29 0516 79 97 03/29 0511 88 98 03/29 0506 78 97 03/29 0501 80 97 03/29 0456 85 99 03/29 0451 84 98 03/29 0446 85.0 03/29 0446 80 128/60 98 03/29 0441 86 97 03/29 0436 106 96 03/29 0429 91 98 03/29 0424 88 96 03/29 0419 88 97 03/29 0414 91 97 03/29 0358 92 98 03/29 0353 93 99 03/29 0348 98.0 18 03/29 0348 95 99 03/29 0346 110.0 03/29 0346 91 160/78 03/29 0343 92 99 03/29 0338 98 99 03/29 0333 96 99 03/29 0328 93 99 03/29 0323 93 99 03/29 0318 94 98 03/29 0313 114 99 03/29 0257 96 99 03/29 0252 95 99 03/29 0247 96 99 12/09 0246 111.0 12/09 0246 88 158/82 12/09 0242 101 99 12/09 0237 96 99 12/09 0232 103 99 12/09 0227 96 99 12/09 0222 97 100 12/09 0217 99 99 12/09 0212 102 99 12/09 0207 87 98 12/09 0202 90 99 12/09 0157 92 99 12/09 0152 86 99 12/09 0147 89 99 12/09 0146 103.0 12/09 0146 86 140/77 12/09 0142 89 99 12/09 0137 90 98 12/09 0132 95 99 12/09 0120 80 98 12/09 0115 85 98 12/09 0110 81 98 12/09 0105 82 98 12/09 0100 79 98 12/09 0055 80 99 12/09 0050 77 99 12/09 0045 77 99 12/09 0043 108.0 12/09 0043 73 159/77 12/09 0040 78 99 12/09 0035 76 98 12/09 0030 75 99 12/09 0028 118.0 12/09 0028 76 162/86 12/09 0025 75 99 12/09 0020 74 99 12/09 0015 74 99 12/09 0013 98.1 16 12/09 0013 114.0 12/09 0013 74 161/81 12/09 0010 72 99 12/09 0005 76 98 12/09 0000 71 99 12/08 2356 127.0 12/08 2356 82 171/97 12/08 2355 84 99 12/08 2354 138.0 12/08 2354 81 179/107 1208 2350 76 98 12/08 2345 75 97 12/08 2340 74 98 12/08 2335 74 98 12/08 2330 85 97 12/08 2325 72 98 12/08 2320 75 98 12/08 2315 72 98 12/08 2310 73 98 12/08 2305 77 99 12/08 2300 75 99 12/08 2255 74 99 12/08 2254 124.0 12/08 2254 75 171/92 12/08 2250 77 99 12/08 2245 78 98 12/08 2240 76 99 12/08 2235 81 98 12/08 2230 76 99 12/08 2225 97 99 12/08 2220 83 99 12/08 2215 90 100 12/08 2210 80 97 12/08 2205 69 100 12/08 2200 73 100 12/08 2155 74 100 12/08 2153 102.0 12/08 2153 71 143/76 12/08 2150 72 100 12/08 2145 74 100 12/08 2140 74 100 12/08 2135 73 100 12/08 2130 72 100 12/08 2125 72 100 12/08 2120 71 100 12/08 2115 74 100 12/08 2110 71 100 12/08 2105 75 100 12/08 2100 78 100 12/08 2055 75 100 12/08 2053 109.0 12/08 2053 75 151/81 12/08 2050 72 100 12/08 1930 77 100 12/08 1925 79 100 12/08 1920 78 100 12/08 1915 80 100 12/08 1910 80 100 12/08 1905 87.0 12/08 1905 97.6 82 18 134/64 100 12/08 1900 79 100 12/08 1855 87 100 12/08 1850 80 100 12/08 1845 82 100 12/08 1843 93.0 12/08 1843 79 136/65 12/08 1840 80 100 12/08 1835 81 100 12/08 1830 82 98 12/08 1749 97.0 12/08 1749 78 138/69 12/08 1746 84 99 12/08 1741 83 100 12/08 1740 89.0 12/08 1740 82 131/62 12/08 1736 79 100 12/08 1731 86 100 12/08 1726 99.0 12/08 1726 97.6 78 16 135/76 99 12/08 1721 79 99 12/08 1716 79 100 12/08 1711 81 99 12/08 1706 80 99 12/08 1703 97.0 12/08 1703 78 136/71 12/08 1701 82 100 12/08 1656 79 99 12/08 1651 80 100 12/08 1646 76 100 12/08 1641 72 99 12/08 1639 110.0 12/08 1639 74 160/77 12/08 1636 74 99 12/08 1631 73 99 12/08 1629 106.0 12/08 1629 73 157/75 12/08 1626 74 99 12/08 1621 71 99 12/08 1619 100.0 12/08 1619 73 155/70 12/08 1616 73 99 12/08 1611 74 99 12/08 1609 96.0 12/08 1609 75 143/69 12/08 1606 75 99 12/08 1601 77 99 12/08 1556 82 100 12/08 1553 116.0 12/08 1553 71 164/82 12/08 1551 68 100 12/08 1546 72 100 12/08 1543 108.0 12/08 1543 73 158/77 12/08 1541 74 100 12/08 1536 73 100 12/08 1533 107.0 12/08 1533 73 157/75 12/08 1531 74 100 12/08 1526 75 99 12/08 1521 70 100 12/08 1517 113.0 12/08 1517 72 162/84 12/08 1516 72 100 12/08 1511 69 100 12/08 1507 104.0 12/08 1507 70 142/78 12/08 1506 79 100 12/08 1501 73 100 12/08 1355 72 100 12/08 1350 81 100 12/08 1349 115.0 12/08 1349 72 157/87 12/08 1345 74 100 12/08 1340 73 100 12/08 1335 114.0 12/08 1335 69 157/86 98 12/08 1330 78 100 12/08 1325 79 99 12/08 1320 74 100 12/08 1319 101.0 12/08 1319 74 133/79 12/08 1315 76 100 12/08 1310 74 100 12/08 1305 107.0 12/08 1305 86 143/84 98 12/08 1300 85 100 12/08 1255 75 100 12/08 1250 77 100 12/08 1249 98.0 16 12/08 1249 85.0 12/08 1249 76 118/65 12/08 1245 78 99 12/08 1240 78 100 12/08 1235 81 100 12/08 1230 82 100 12/08 1225 84 100 12/08 1224 82.0 12/08 1224 77 122/56 12/08 1220 79 100 12/08 1215 79 100 12/08 1210 79 100 12/08 1205 78 100 12/08 1204 90.0 12/08 1204 77 125/67 12/08 1200 75 100 12/08 1155 78 100 12/08 1150 83 100 12/08 1145 73 100 12/08 1144 93.0 12/08 1144 72 125/73 12/08 1140 77 100 12/08 1135 80 100 12/08 1130 76 100 12/08 1125 74 100 12/08 1120 76 100 12/08 1115 72 100 12/08 1110 73 100 12/08 1105 69 99 12/08 1104 90.0 12/08 1104 66 132/63 12/08 1100 97.7 68 18 99 12/08 1055 66 100 12/08 1053 93.0 12/08 1053 66 136/64 12/08 1050 67 100 12/08 1045 72 100 12/08 1043 101.0 12/08 1043 67 144/71 12/08 1040 70 100 12/08 1035 67 97 12/08 1033 96.0 12/08 1033 66 139/67 12/08 1030 70 97 12/08 1025 68 96 12/08 1020 72 99 12/08 1015 71 99 12/08 1010 74 100 12/08 1008 121.0 12/08 1008 76 166/90 12/08 1005 87 100 12/08 1000 70 99 12/08 0955 68 100 12/08 0953 119.0 12/08 0953 67 158/92 12/08 0950 71 100 12/08 0945 68 99 12/08 0940 67 99 12/08 0938 118.0 12/08 0938 67 158/89 12/08 0935 70 100 12/08 0930 70 99 12/08 0925 68 99 12/08 0923 104.0 12/08 0923 69 144/77 12/08 0920 70 99 12/08 0915 72 99 12/08 0910 70 99 12/08 0905 109.0 12/08 0905 74 148/81 100 12/08 0900 98.0 16 12/08 0900 105.0 12/08 0900 67 143/79 100 12/08 0855 105.0 12/08 0855 69 143/79 100 12/08 0852 99.0 12/08 0852 68 139/73 12/08 0850 67 100 12/08 0846 96.0 03/28 846 73 128/76 03/28 845 72 99 03/28 840 75 98 03/28 838 112.0 03/28 838 71 139/95 03/28 835 75 100 PATIENT WEIGHT: Weight (lb): 234 Weight (oz): 9.15 Weight (kg): 106.400 Dietitian Nutrition assessment The data set between the solid lines has been imported from the dietitian's assessment. BMI Calculated: 41.45 Nutrition related diagnosis: Nutrition diagnosis details: Nutrition problem: Nutrition etiology: Nutrition signs and symptoms: Nutrition prescription: Dietitian name: Assessment completed: Physical Exam Lungs: symmetrical non labored respiration Neuro: Exam: alert, normal speech Abdomen: soft, no abnormal tenderness, no guarding, no rebound tenderness Uterus: firm, non-tender Fundus: firm, below the umbilicus, non-tender Lacerations: High vaginal laceration: bilateral hemostatic periurethral tears Result Findings/Data: Laboratory Tests: 03/29 630 Chemistry Sodium (134 - 147 mEq/L) 135 Potassium (3.4 - 5.0 mEq/L) 4.4 Chloride (100 - 108 mEq/L) 105 Carbon Dioxide (21 - 33 mEq/l) 24 Anion Gap (0 - 20) 10 BUN (7 - 18 mg/dL) 6 L Creatinine (0.6 - 1.3 mg/dL) 0.7 Glomerular Filtr Rate (105 - 110) 117.0 H Glucose (70 - 110 mg/dL) 85 Calcium (8.0 - 10.5 mg/dL) 7.0 L Total Bilirubin (0.0 - 1.0 mg/dL) 0.20 AST (15 - 37 IUnit/L) 14 L ALT (30 - 65 IUnit/L) 12 L Total Alk Phosphatase (20 - 125 IUnit/L) 91 Total Protein (6.4 - 8.2 g/dL) 5.9 L Albumin (3.4 - 5.0 g/dL) 2.40 L Hematology WBC (4.5 - 11.0 x10 3/uL) 11.6 H RBC (3.54 - 5.02 x10 6/uL) 3.00 L Hgb (11.0 - 15.0 g/dL) 7.8 L Hct (33.0 - 45.0 %) 26.4 L MCV (81.0 - 99.0 fL) 88.0 MCH (27.0 - 33.0 pg) 26.0 L MCHC (33.0 - 37.0 g/dL) 29.5 L RDW (11.5 - 14.5 %) 16.2 H Plt Count (150 - 400 x10 3/uL) 314 MPV (7.0 - 9.0 fL) 9.2 H Neut % (Auto) (56.0 - 77.0 %) 74.9 Lymph % (Auto) (14.0 - 32.0 %) 14.8 [place] % (Auto) (4.8 - 9.0 %) 8.4 Eos % (Auto) (0.3 - 3.7 %) 0.9 Baso % (Auto) (0.0 - 2.0 %) 0.3 Neut # (Auto) (2.0 - 7.6 x10 3/uL) 8.65 H Lymph # (Auto) (1.0 - 3.8 x10 3/uL) 1.71 [place] # (Auto) (0.1 - 0.8 x10 3/uL) 0.97 H Eos # (Auto) (0.0 - 0.2 x10 3/uL) 0.10 Baso # (Auto) (0.0 - 0.2 x10 3/uL) 0.04 Abs Immat Gran (auto) (0.00 - 0.03 x10 3/uL) 0.08 H Add Manual Diff NO Immature Gran % (0.0 - 2.0 %) 0.7 Nucleated RBC % (0 - 0 %) 0.0 Nucleated RBCs # (Man) (0.0 - 0.1 x10 3/uL) 0.00 Results: labs reviewed, vital signs reviewed, vital signs stable Blood Loss Blood loss at delivery: Blood loss at delivery: <1K: no sx hypovol=no hem Cause of the bleeding: Management that was provided: QBL at delivery: 50 EBL at delivery: 250 Diagnosis, Assessment Plan Diagnosis, Assessment Plan Free text A P: Ms. Abbott is a 31 yo female PPD#1 s/p at 33w5d admit for IOL for SI PreE. complicated by CHTN (on Procardia 30 mg AM/60 mg PM), substance abuse (UDS positive at [facility] and last hospital admission for amphetamines), tobacco use, anemia, FGR (<10th%ile), and medical non compliance. Patient meeting all post milestones and currently on Magnesium for seizure prophylaxis for 24 hours after delivery. - Analgesia PRN - Continue PNVs and Fe (latter for iron deficiency anemia) - Antiemetics/GI PPx/bowel regimen scheduled and PRN - Ambulation/SCDs for DVT PPx F: None E: WNL N: Regular diet CHTN w/SI PreE - PIH labs reviewed this AM and notable for anemia. - Continue to monitor BPs. - IV antihypertensives PRN. - Continue magnesium for seizure prophylaxis until 1241 on 03/29. - Currently on Procardia 30 mg AM/60 mg PM. If BPs trend upwards during the day today, will change prescription to Procardia 60 mg BID. This was discussed with patient. UTI - Pt with UA+ for nitrites at clinic on 03/26 - S/p Rocephin 1 g - UCx pending Bacterial vaginosis - Flagyl 500 mg BID for 7 days - Identified via NuSwab collected in clinic on 03/26 Disposition: Anticipate discharge PPD#3 pending on BP management. Patient aware to schedule appointments for BP check in 1 wk and post visit in 4-6 wks. at 0852 RPT #:[id number] END OF REPORT [facility] 2022-03-28 21:52:00 [facility] ([facility]) OB Delivery Note REPORT#:[id number] REPORT STATUS: Signed DATE:03/28/22 TIME: 2151 PATIENT: RADHA ABBOTT UNIT #: [id number] ROOM/BED: [place] [address] : 88 AGE: 31 SEX: F ATTEND: Nuzhat Villatoro MD ADM AUTHOR: Nuzhat Villatoro MD * ALL edits or amendments must be made on the electronic/computer document * OB Delivery Nursing Documentation Review Nursing data: The data set between the solid lines has been imported from nursing documentation. Any exceptions have been noted below under Provider comments. _ ROM date: 03/28/22 ROM time: 0750 Membranes rupture method: AROM Amniotic fluid color: Clear Amniotic fluid amount: Steroids prior to arrival: Antibiotic prophylaxis given: Post hemorrhage risk score: High Risk for Hemorrhage Delivery date infant A: 03/28/22 Delivery time infant A: 1241 Birthweight (gm) A: 1720 Weight (lb) infant A: Weight (oz) infant A: Gender A: Male 1 minute A: 6 5 minutes infant A: 9 10 minutes A: Cord pH obtained infant A: Vacuum time infant A: Vacuum # pulls infant A: Vacuum # popoffs A: QBL at delivery: 50 __ Provider comments on imported nursing data: [] Pre-delivery GBS status: GBS status: unknown Meds prior to delivery: betamethasone, magnesium sulfate [place] evaluation at delivery: team Admission EGA: Weeks: 33 Days: 3 EGA at delivery (wks/days): 33w5d Admission indication: IOL for SI Pre Eclampsia Steroids Prior to Delivery Steroids prior to delivery: yes, delivery 24-34 weeks Blood Loss/Details Blood loss at delivery: <1K: no sx hypovol=no hem QBL at delivery (ml's): 50 EBL at delivery (ml's): 250 Baby A Information Baby A information Delivery date: 03/28/22 Delivery time: 1240 status: live born Wt of baby (lbs/oz): [id number] Gender: male ABG details Baby A Cord blood gases: collected Cord pH (venous): 7.3 PCO2-venous: 43 Base excess-venous: -3.9 Nuchal cord Baby A Nuchal cord: no Vaginal Delivery Vaginal Delivery Vaginal delivery: Labor: induced Medications/Devices used: oxytocin, cervidil, mechanical dilator Vaginal delivery: spontaneous Amniotic fluid: clear Anesthesia type: epidural anesthesia Episiotomy: none Episiotomy repair: no Laceration repair: no Placenta: spontaneous, intact Post delivery meds used: oxytocin Count: correct Vaginal packing: No Mother's condition: mother stable Infant's condition: to NICU Lacerations: High vaginal laceration: bilateral hemostatic periurethral tears Extraction details OVD performed: no Shoulder dystocia present: no Note dictated: No Additional comments: of a live male, 1,729 g and Apgars 6/9. Delivered OA, no nuchal cord, body delivered without difficulty. Cord clamped and cut. Baby handed to nurse. Placenta delivered spontaneously, intact. Fundus firm, minimal bleeding. Placenta appears intact. Perineum and vagina inspected. Small bilateral periurethral tears remained hemostatic. EBL 250 cc. Pt tolerated procedure well, recovering in LDR. at 3957 RPT #:[id number] END OF REPORT [facility] 2022-03-28 09:27:00 [facility] ([facility]) PROGRESS NOTE REPORT#:[id number] REPORT STATUS: Signed DATE:03/28/22 TIME: 926 PATIENT: RADHA ABBOTT UNIT #: [id number] ROOM/BED: [place] [address] : 88 AGE: 31 SEX: F ATTEND: Nuzhat Villatoro MD ADM AUTHOR: Nuzhat Villatoro MD * ALL edits or amendments must be made on the electronic/computer document * Progress Note Progress Note Presented to patient's room given FHT deceleration down to 60 bpm per RN after epidural placement. Patient was hypotensive but after ephedrine was given her BPs have returned to baseline. FHT recovered to 105-115 bpm, minimal variability , no decelerations/accelerations. Patient on lateral side, receiving oxygen supplementation, and Pitocin turned off. FHT reviewed and prior to me entering room, deep variable decelerations observed, will start amnioinfusion. Patient's last CE was 3/90/-2. Will allow recovery and when tracing is Category 1, will restart Pitocin for continued IOL. Anticipate . at 2150 RPT #:[id number] END OF REPORT [facility] 2022-03-28 09:23:00 [facility] ([facility]) OB Antepartum Prog Note REPORT#:[id number] REPORT STATUS: Signed DATE:03/28/22 TIME: 922 PATIENT: RADHA ABBOTT UNIT #: [id number] ROOM/BED: [place] [address] : 88 AGE: 31 SEX: F ATTEND: Nuzhat Villatoro MD ADM AUTHOR: Nuzhat Villatoro MD * ALL edits or amendments must be made on the electronic/computer document * Subjective Subjective Admission EGA: Weeks: 33 Days: 3 Current EGA: Current EGA(wks): 33 Current EGA(days): 5 Patient reports: Patient reports: Yes: normal movement. No: complaints, abdominal pain, vaginal bleeding , leaking fluid, contractions, headache, blurred vision, scotomata (no anasarca, reports pressure). Comments: Patient states that she is tired of the long induction and requests a . Review of Systems Eyes: Denies: visual loss/blurred. GI: Denies: abdominal pain. : Denies: vaginal bleeding. Objective Nursing Documentation Review Nursing data: The data set between the solid lines has been imported from nursing documentation. Any exceptions have been noted below under Provider comments. ROM date: ROM time: Labor onset date: Labor onset time: Provider comments on imported nursing data: [] VS: Last Documented: Result Date Time B/P Mean 105.0 03/28 0855 Pulse Ox 100 03/28 0855 B/P 143/79 03/28 0855 Pulse 69 03/28 0855 Temp 97.9 03/28 0709 Resp 16 03/28 0709 Vital Signs Date Temp Pulse Resp B/P B/P Mean Pulse Ox FiO2 03/27-03/28 97.6-98.2 63-99 15-18 117-176/65-107 86.0-135.0 94-100 PATIENT WEIGHT: Weight (lb): 234 Weight (oz): 9.15 Weight (kg): 106.400 Medications: Active Meds + DC'd Last 24 Hrs Acetaminophen (TYLENOL EXTRA STRENGTH) 1,000 MG ONCE ONE PO (UNV) Cefazolin Sodium (KEFZOL OR ANCEF) 2 GM PREOP ONCALL IV (UNV) Sodium Chloride (SODIUM CHLORIDE) 20 ML ASDIR IV (UNV) Labetalol HCl (LABETALOL HCL) 20 MG ONCE PRN IV Nifedipine (Procardia) 10 MG ONCE PRN PO Nifedipine (Procardia) 20 MG ONCE PRN PO Nifedipine (Procardia) 20 MG ONCE PRN PO Hydralazine HCl (APRESOLINE) 5 MG ASDIR PRN IV Hydralazine HCl (APRESOLINE) 10 MG ASDIR PRN IV Labetalol HCl (LABETALOL HCL) 20 MG ASDIR PRN IV Labetalol HCl (LABETALOL HCL) 40 MG ASDIR PRN IV Penicillin G Potassium (PENICILLIN G POTASSIUM) 5 MILLION.UN ASDIR IV ( DC) Sodium Chloride (SODIUM CHLORIDE 0.9% 100 ML) 100 ML Penicillin G Potassium/Sodium Chlor (Penicillin G 2.5MILL UNITS/NS 50ML) 50 ML Q4H IV Oxytocin/Sodium Chloride (Oxytocin 15 units/NS 250 mL) 250 ML ASDIR IV Penicillin G Potassium (PENICILLIN G POTASSIUM) 5 MILLION.UN ASDIR IV ( DC) Sodium Chloride (SODIUM CHLORIDE 0.9% 100 ML) 100 ML Bupivacaine HCl (MARCAINE) 10 ML ONCE PRN EPIDURAL (CKD) Bupivacaine HCl (MARCAINE) 10 ML ASDIR PRN EPIDURAL (CKD) Bupivacaine HCl (MARCAINE 0.5%) 30 ML ASDIR PRN EPIDURAL (CKD) Diphenhydramine HCl (BENADRYL) 12.5 MG Q6H PRN PRN IV Ephedrine Sulfate (ePHEDrine sulfate) 10 MG ONCE PRN IV Ephedrine Sulfate (ePHEDrine sulfate) 25 MG ONCE PRN IM Lidocaine/Epinephrine (LIDOCAINE 1.5% W/EPINEPHrine) 5 ML ASDIR PRN LOCAL Naloxone HCl (NARCAN) 0.1 MG ASDIR PRN IV Ropivacaine/Fentanyl/NS (fentaNYL/ROP 200 MCG/0.125% 100ML CASSETTE) 0 ASDIR EPIDURAL Sterile Water (WATER FOR INJECTION) 10 ML ASDIR PRN EPIDURAL Acetaminophen (TYLENOL) 650 MG Q6H PRN PRN PO Nifedipine (Procardia XL (Adalat-CC)) 30 MG BID PO Calcium Gluconate/Sodium Chloride (Calcium Gluconate 1 GM/NS 50 mL) 50 ML ONCE PRN IV Lorazepam (ATIVAN) 1 MG ONCE PRN IV Lorazepam (ATIVAN) 1 MG ONCE PRN IM Magnesium Sulfate (MAGNESIUM SULFATE 20GM/SWFI 500ML) 500 ML ASDIR IV ( CKD) Sodium Chloride (SODIUM CHLORIDE) 0 ASDIR PRN IV Bupivacaine HCl (MARCAINE) 0 ASDIR PRN EPIDURAL Carboprost Tromethamine (HEMABATE) 250 MCG ONCE PRN IM Citric Acid/Sodium Citrate (BICITRA ADULT DOSE) 30 ML ONCE PRN PO Ephedrine Sulfate (ePHEDrine sulfate) 10 MG ASDIR PRN IV Ephedrine Sulfate (ePHEDrine sulfate) 25 MG ASDIR PRN IM Famotidine (PEPCID) 20 MG ONCE PRN IV Lactated Ringer's (LACTATED RINGERS) 1,000 ML BOLUS PRN IV Lactated Ringer's (LACTATED RINGERS) 1,000 ML .Q8H IV Lidocaine HCl (LIDOCAINE HCL/PF) 30 ML ASDIR PRN LOCAL Methylergonovine Maleate (METHERGINE) 0.2 MG ONCE PRN IM Metoclopramide HCl (REGLAN) 10 MG ONCE PRN IV Mineral Oil (MINERAL OIL) 30 ML ASDIR PRN TOPICAL Misoprostol (miSOPROStoL) 800 MCG ONCE PRN RECTAL Ondansetron HCl (ZOFRAN) 4 MG Q4H PRN PRN IV Oxytocin/Sodium Chloride (Oxytocin 15 units/NS 250 mL) 333.33 ML BOLUS PRN IV Ropivacaine/Fentanyl/NS (fentaNYL/ROP 200 MCG/0.125% 100ML CASSETTE) 0 ASDIR PRN EPIDURAL Butorphanol Tartrate (STADOL) 1 MG Q4H PRN PRN IV Dinoprostone (CERVIDIL) 10 MG ASDIR VAGINAL Hydralazine HCl (APRESOLINE) 10 MG ASDIR PRN IV Labetalol HCl (LABETALOL HCL) 20 MG ASDIR PRN IV Labetalol HCl (LABETALOL HCL) 40 MG ASDIR PRN IV Labetalol HCl (LABETALOL HCL) 80 MG ASDIR PRN IV Membranes: AROM ROM date: 03/28/22 ROM time: 0750 Amniotic fluid: clear Dietitian nutrition assessment The data set between the solid lines has been imported from the dietitian's assessment. BMI Calculated: 41.45 Nutrition related diagnosis: Nutrition diagnosis details: Nutrition problem: Nutrition etiology: Nutrition signs and symptoms: Nutrition prescription: Dietitian name: Assessment completed: Cervical/ exam: Dilatation (cm): 3 Effacement (%): 50 Suspected macrosomia: No Suspected > 5000 grams: No station: - 2 presentation: cephalic (Performed by RN) Uterine activity: Monitor: toco HEENT: normocephalic w/o injury, no apparent hearing diff, no lesions of mouth, no lesions of throat, no nasal septum deviation, no scleral icterus Lungs: unlabored breathing Neuro: Exam: alert, normal speech Abdomen: gravid Baby A: Baby A baseline: 120 bpm Baby A variability: moderate 6-25 bpm Baby A accelerations: absent Baby A decelerations: none Baby A FHR category: category 1 Findings/data: Laboratory Tests: 03/28 03/28 03/27 0710 UNK 2300 Blood Gas Cord VBG pH (7.25 - 7.45) 7.33 Cord VBG pCO2 (27 - 49 mmHg) 43 Cord VBG pO2 (17 - 41 mmHg) 25 Cord VBG HCO3 (12 - 28 MMOL/L) 22.1 Cord VBG Base Excess (-8.0 - 0.00 mmol/L) -3.9 Cord VBG O2 Sat (%) 41 Chemistry Sodium (134 - 147 mEq/L) 134 134 Potassium (3.4 - 5.0 mEq/L) 3.8 3.7 Chloride (100 - 108 mEq/L) 103 104 Carbon Dioxide (21 - 33 mEq/l) 23 23 Anion Gap (0 - 20) 12 11 BUN (7 - 18 mg/dL) 8 8 Creatinine (0.6 - 1.3 mg/dL) 0.7 0.6 Glomerular Filtr Rate (105 - 110) 117.0 H 121.5 H Glucose (70 - 110 mg/dL) 91 103 Uric Acid (2.6 - 7.2 mg/dL) 5.7 5.3 Calcium (8.0 - 10.5 mg/dL) 7.5 L 7.5 L Magnesium (1.80 - 2.40 mg/dL) 5.56 *H Total Bilirubin (0.0 - 1.0 mg/dL) 0.30 0.30 AST (15 - 37 IUnit/L) 16 18 ALT (30 - 65 IUnit/L) 16 L 17 L Total Alk Phosphatase (20 - 125 IUnit/L) 102 104 Lactate Dehydrogenase (84 - 246 IUnits/L) 183 179 Total Protein (6.4 - 8.2 g/dL) 6.3 L 6.4 Albumin (3.4 - 5.0 g/dL) 2.50 L 2.60 L Hematology WBC (4.5 - 11.0 x10 3/uL) 7.8 10.0 RBC (3.54 - 5.02 x10 6/uL) 3.49 L 3.56 Hgb (11.0 - 15.0 g/dL) 9.1 L 9.3 L Hct (33.0 - 45.0 %) 30.1 L 30.6 L MCV (81.0 - 99.0 fL) 86.2 86.0 MCH (27.0 - 33.0 pg) 26.1 L 26.1 L MCHC (33.0 - 37.0 g/dL) 30.2 L 30.4 L RDW (11.5 - 14.5 %) 16.5 H 16.1 H Plt Count (150 - 400 x10 3/uL) 404 H 382 MPV (7.0 - 9.0 fL) 9.5 H 9.2 H Neut % (Auto) (56.0 - 77.0 %) 70.7 72.9 Lymph % (Auto) (14.0 - 32.0 %) 20.1 18.4 [place] % (Auto) (4.8 - 9.0 %) 6.4 6.7 Eos % (Auto) (0.3 - 3.7 %) 1.4 0.9 Baso % (Auto) (0.0 - 2.0 %) 0.5 0.5 Neut # (Auto) (2.0 - 7.6 x10 3/uL) 5.54 7.25 Lymph # (Auto) (1.0 - 3.8 x10 3/uL) 1.57 1.83 [place] # (Auto) (0.1 - 0.8 x10 3/uL) 0.50 0.67 Eos # (Auto) (0.0 - 0.2 x10 3/uL) 0.11 0.09 Baso # (Auto) (0.0 - 0.2 x10 3/uL) 0.04 0.05 Abs Immat Gran (auto) (0.00 - 0.03 x10 3/uL) 0.07 H 0.06 H Add Manual Diff NO NO Immature Gran % (0.0 - 2.0 %) 0.9 0.6 Nucleated RBC % (0 - 0 %) 0.0 0.3 H Nucleated RBCs # (Man) (0.0 - 0.1 x10 3/uL) 0.00 0.03 Diagnosis, Assessment Plan Diagnosis, Assessment Plan Free text A P: Ms. Abbott is a 31 yo female at [id number] admit for IOL for SI PreE. complicated by CHTN (on Procardia 30 mg BID), substance abuse (UDS positive at [facility] and last hospital admission for amphetamines), tobacco use, anemia, FGR (<10th%ile), and medical non compliance. - Cook balloon out. CE per RN unchanged. CE performed by id /-2. - Patient requesting pLTCS but after discussing R/B/A including but not limited to bleeding, infection, damage to nearby organs, and , patient elects for alternative which is continued IOL via AROM. - AROM performed at 0750, fluid clear, IUPC placed. FSE unable to be placed given head position/patient discomfort. - Pitocin at 18 mU/min. Will continue titrating up until achieving at least 200 MVU in a 10 minute period. - Continue PCN G for GBS prophylaxis. - PIH labs reviewed and notable for anemia. Will continue monitoring. - IV antihypertensives PRN. - Continue magnesium for seizure prophylaxis. - Continue Procardia 30 mg BID. - S/p BTMZ x 2 - S/p Rocephin 1 g for likely UTI (positive nitrites at clinic on 03/26). - Continues FHT. Category I-II (latter given periods of minimal variability likely secondary to Magnesium). - Reccomended patient to request epidural for analgesia control. - Will continue monitoring. Anticipate . Assessment: growth restriction, status post betamethasone, hypertension, with severe features Plan: delivery, magnesium sulfate, surveillance Plan discussed with: patient at 2150 RPT #:[id number] END OF REPORT [facility] 2022-03-27 22:07:00 [facility] ([facility]) DT PROGRESS NOTE REPORT#:[id number] REPORT STATUS: Signed DATE:03/27/22 TIME: 2206 PATIENT: RADHA ABBOTT UNIT #: [id number] ROOM/BED: [place] [address] : 88 AGE: 31 SEX: F ATTEND: Nuzhat Villatoro MD ADM AUTHOR: Nuzhat Villatoro MD * ALL edits or amendments must be made on the electronic/computer document * Progress Note Progress Note Presented to patient's room given that after Cervidil was removed, CE was found to be 1.5/30/-3 per RN. Discussed with patient that would like to move forward with IOL via Cook balloon placement to achieve cervical ripening. R/B/A of Cook ballon discussed including but not limited to AROM, malpresentation, and umbilical cord prolapse. Discussed that ideally this will get her to 3-5 cm dilated at which time Pitocin can be initiated. Alternative is to begin Pitocin at this time although FHT currently Category II (given minimal variability likely secondary to Magnesium) and cervical exam with unfavorable Miles score. Discussed also the option of starting Cook Balloon and starting low dose Pitocin. Patient agrees to Cook Balloon placement. CE: 50/-3, posterior, medium (Miles score 3). Cephalic presentation. Patient in lithotomy position. Uterine balloon placed past internal cervical os using stylet to guide placement. The uterine balloon was inflated with 30 mL of sterile saline (U-Port) and pulled back to abut the internal cervical os. The vaginal balloon was inflated with 30 mL of sterile saline (V-Port). Although, a total of 80 mL could be used for each balloon, this was not done so as to decrease the risk of malpresentation given prematurity as well as FGR. Catheter taped to patient s leg. Cook balloon placed at 1150, due for removal at 2350 unless expelled prior. Will start GBS PPx once Pitocin is initiated. at 2225 RPT #:[id number] END OF REPORT [facility] 2022-03-27 21:44:00 [facility] ([facility]) OB Antepartum Prog Note REPORT#:[id number] REPORT STATUS: Signed DATE:03/27/22 TIME: 2143 PATIENT: RADHA ABBOTT UNIT #: [id number] ROOM/BED: [place] [address] : 88 AGE: 31 SEX: F ATTEND: Nuzhat Villatoro MD ADM AUTHOR: Nuzhat Villatoro MD * ALL edits or amendments must be made on the electronic/computer document * Subjective Subjective Admission EGA: Weeks: 33 Days: 3 Current EGA: Current EGA(wks): 33 Current EGA(days): 4 Patient reports: Patient reports: Yes: normal movement, headache. No: abdominal pain, vaginal bleeding, leaking fluid, contractions, blurred vision, scotomata (no anasarca). Review of Systems Eyes: Denies: visual loss/blurred. : Denies: vaginal bleeding. Neuro: Denies: vision change. Objective Nursing Documentation Review Nursing data: The data set between the solid lines has been imported from nursing documentation. Any exceptions have been noted below under Provider comments. ROM date: ROM time: Labor onset date: Labor onset time: Provider comments on imported nursing data: [] VS: Last Documented: Result Date Time Pulse Ox 99 03/27 2057 Pulse 81 03/27 2057 B/P Mean 111.0 03/27 2040 B/P 167/78 03/27 2040 Temp 97.6 03/27 1542 Resp 16 03/27 154 Vital Signs Date Temp Pulse Resp B/P B/P Mean Pulse Ox FiO2 03/26-03/27 97.6-98.4 63-154 15-18 117-198/61-11 86.0-150.0 89-100 6 PATIENT WEIGHT: Weight (lb): 234 Weight (oz): 9.15 Weight (kg): 106.400 Medications: Active Meds + DC'd Last 24 Hrs Labetalol HCl (LABETALOL HCL) 20 MG ONCE PRN IV Nifedipine (Procardia) 10 MG ONCE PRN PO Nifedipine (Procardia) 20 MG ONCE PRN PO Nifedipine (Procardia) 20 MG ONCE PRN PO Hydralazine HCl (APRESOLINE) 5 MG ASDIR PRN IV Hydralazine HCl (APRESOLINE) 10 MG ASDIR PRN IV Labetalol HCl (LABETALOL HCL) 20 MG ASDIR PRN IV Labetalol HCl (LABETALOL HCL) 40 MG ASDIR PRN IV Penicillin G Potassium (PENICILLIN G POTASSIUM) 5 MILLION.UN ASDIR IV ( DC) Sodium Chloride (SODIUM CHLORIDE 0.9% 100 ML) 100 ML Penicillin G Potassium/Sodium Chlor (Penicillin G 2.5MILL UNITS/NS 50ML) 50 ML Q4H IV Oxytocin/Sodium Chloride (Oxytocin 15 units/NS 250 mL) 250 ML ASDIR IV Penicillin G Potassium (PENICILLIN G POTASSIUM) 5 MILLION.UN ASDIR IV ( DC) Sodium Chloride (SODIUM CHLORIDE 0.9% 100 ML) 100 ML Bupivacaine HCl (MARCAINE) 10 ML ONCE PRN EPIDURAL (CKD) Bupivacaine HCl (MARCAINE) 10 ML ASDIR PRN EPIDURAL (CKD) Bupivacaine HCl (MARCAINE 0.5%) 30 ML ASDIR PRN EPIDURAL (CKD) Diphenhydramine HCl (BENADRYL) 12.5 MG Q6H PRN PRN IV Ephedrine Sulfate (ePHEDrine sulfate) 10 MG ONCE PRN IV Ephedrine Sulfate (ePHEDrine sulfate) 25 MG ONCE PRN IM Lidocaine/Epinephrine (LIDOCAINE 1.5% W/EPINEPHrine) 5 ML ASDIR PRN LOCAL Naloxone HCl (NARCAN) 0.1 MG ASDIR PRN IV Ropivacaine/Fentanyl/NS (fentaNYL/ROP 200 MCG/0.125% 100ML CASSETTE) 0 ASDIR EPIDURAL Sterile Water (WATER FOR INJECTION) 10 ML ASDIR PRN EPIDURAL Acetaminophen (TYLENOL) 650 MG Q6H PRN PRN PO Nifedipine (Procardia XL (Adalat-CC)) 30 MG BID PO Calcium Gluconate/Sodium Chloride (Calcium Gluconate 1 GM/NS 50 mL) 50 ML ONCE PRN IV Ceftriaxone Sodium (ROCEPHIN 1000MG VIAL) 1,000 MG ONCE ONE IV (DC) Sodium Chloride (SODIUM CHLORIDE) 10 ML Lorazepam (ATIVAN) 1 MG ONCE PRN IV Lorazepam (ATIVAN) 1 MG ONCE PRN IM Magnesium Sulfate (MAGNESIUM SULFATE 4GM/SWFI 100ML) 100 ML ONCE ONE IV (DC) Magnesium Sulfate (MAGNESIUM SULFATE 20GM/SWFI 500ML) 500 ML ASDIR IV ( CKD) Sodium Chloride (SODIUM CHLORIDE) 0 ASDIR PRN IV Bupivacaine HCl (MARCAINE) 0 ASDIR PRN EPIDURAL Carboprost Tromethamine (HEMABATE) 250 MCG ONCE PRN IM Citric Acid/Sodium Citrate (BICITRA ADULT DOSE) 30 ML ONCE PRN PO Ephedrine Sulfate (ePHEDrine sulfate) 10 MG ASDIR PRN IV Ephedrine Sulfate (ePHEDrine sulfate) 25 MG ASDIR PRN IM Famotidine (PEPCID) 20 MG ONCE PRN IV Lactated Ringer's (LACTATED RINGERS) 1,000 ML BOLUS PRN IV Lactated Ringer's (LACTATED RINGERS) 1,000 ML .Q8H IV Lidocaine HCl (LIDOCAINE HCL/PF) 30 ML ASDIR PRN LOCAL Methylergonovine Maleate (METHERGINE) 0.2 MG ONCE PRN IM Metoclopramide HCl (REGLAN) 10 MG ONCE PRN IV Mineral Oil (MINERAL OIL) 30 ML ASDIR PRN TOPICAL Misoprostol (miSOPROStoL) 800 MCG ONCE PRN RECTAL Ondansetron HCl (ZOFRAN) 4 MG Q4H PRN PRN IV Oxytocin/Sodium Chloride (Oxytocin 15 units/NS 250 mL) 333.33 ML BOLUS PRN IV Ropivacaine/Fentanyl/NS (fentaNYL/ROP 200 MCG/0.125% 100ML CASSETTE) 0 ASDIR PRN EPIDURAL Butorphanol Tartrate (STADOL) 1 MG Q4H PRN PRN IV Dinoprostone (CERVIDIL) 10 MG ASDIR VAGINAL Hydralazine HCl (APRESOLINE) 10 MG ASDIR PRN IV Labetalol HCl (LABETALOL HCL) 20 MG ASDIR PRN IV Labetalol HCl (LABETALOL HCL) 40 MG ASDIR PRN IV Labetalol HCl (LABETALOL HCL) 80 MG ASDIR PRN IV Dietitian nutrition assessment The data set between the solid lines has been imported from the dietitian's assessment. BMI Calculated: 41.45 Nutrition related diagnosis: Nutrition diagnosis details: Nutrition problem: Nutrition etiology: Nutrition signs and symptoms: Nutrition prescription: Dietitian name: Assessment completed: Cervical/ exam: Dilatation (cm): 1 Effacement (%): 30 Suspected macrosomia: No Suspected > 5000 grams: No station: - 3 presentation: cephalic (Performed by RN) Uterine activity: Monitor: toco Frequency (description): none HEENT: normocephalic w/o injury, no apparent hearing diff, no lesions of mouth, no lesions of throat, no nasal septum deviation, no scleral icterus Lungs: unlabored breathing Neuro: Exam: alert, normal speech Abdomen: gravid Baby A: Baby A baseline: 120 bpm Baby A variability: minimal < or = 5 bpm Baby A accelerations: absent Baby A decelerations: none Baby A FHR category: category 2 Findings/data: Laboratory Tests: 03/27 03/26 0415 2238 Chemistry POC Glucose (70 - 110 MG/DL) 102 Magnesium (1.80 - 2.40 mg/dL) 4.07 *H Toxicology Urine Opiates Screen (NEGATIVE) NEGATIVE Urine Barbiturates (NEGATIVE) NEGATIVE Ur Phencyclidine Scrn (NEGATIVE) NEGATIVE Ur Amphetamines Screen (NEGATIVE) NEGATIVE U Benzodiazepines Scrn (NEGATIVE) NEGATIVE Urine Cocaine Screen (NEGATIVE) NEGATIVE Urine Cannabinoids (NEGATIVE) NEGATIVE Diagnosis, Assessment Plan Diagnosis, Assessment Plan Free text A P: Ms. Abbott is a 31 yo female admit for IOL for SI PreE. complicated by CHTN (on Procardia 30 mg BID), substance abuse (UDS positive at [facility] and last hospital admission for amphetamines), tobacco use, anemia, FGR (< 10th%ile), and medical non compliance. - Continue cervidil. Due to come at out at 1103. If at least 3 cm in cervical dilation, will start Pitocin at that time. Otherwise will have to return to place Berger or Cook balloon. - GBS prophylaxis with PCN G to be started at the time that Pitocin is started. GBS collected in clinic on 03/26 pending. - [facility] labs ordered. - IV antihypertensives PRN. - Continue magnesium for seizure prophylaxis. - Continue Procardia 30 mg BID. - S/p BTMZ x 2 - S/p Rocephin 1 g for likely UTI (positive nitrites at clinic on 03/26). - Continues FHT. Category I-II (latter given periods of minimal variability likely secondary to Magnesium). - Reccomended patient to request epidural for analgesia control as FHT may preclude her from receiving IV narcotics. - Will continue monitoring. Anticipate . Assessment: growth restriction, status post betamethasone, hypertension, with severe features Plan: delivery, magnesium sulfate, surveillance Plan discussed with: patient at 2209 RPT #:[id number] END OF REPORT [facility] 2022-03-27 21:11:00 [facility] ([facility]) OB Admission / H P REPORT#:[id number] REPORT STATUS: Signed DATE:03/27/22 TIME: 2110 PATIENT: RADHA ABBOTT UNIT #: [id number] ROOM/BED: [place] [address] : 88 AGE: 31 SEX: F ATTEND: Nuzhat Villatoro MD ADM AUTHOR: Nuzhat Villatoro MD * ALL edits or amendments must be made on the electronic/computer document * OB History Nursing Documentation Review Nursing data: The data set between the solid lines has been imported from nursing documentation. Any exceptions have been noted below under Provider comments. Current data Steroids prior to arrival: ROM date: ROM time: EDC date: 05/11/22 Gestational age (labor triage): Post hemorrhage risk score: Medium Risk for Hemorrhage. Prior history : 4 Para: 2 Term: : Abortions spontaneous: Abortions induced: Living children: Ectopic: Stillbirths: Live births: deaths: Number of previous C/S: Reported maternal labs/data Blood type: Rh type: Rubella: Hepatitis B: HIV exposure test: Negative VDRL: Group B beta strep: Done, result unknown Rho(D) immune globulin this preg: Monitor mode - UA: Feeding preference: Provider comments on imported nursing data: [] Chief complaint: elevated blood pressure HPI: Patient presents for IOL per [facility] reccomendations from Dr. Greene after having persistently elevated BPs in clinic today despite taking Procardia 30 mg BID. GS peformed today at [facility] with EFW<10th%ile, 3 lb 13 oz. history: : 4 Term: 0 : 2 Abortus: 1 Living children: 3 Complications (prev preg): hypertension, preeclampsia Previous : none Number of prev : 0 Current : Admission EGA (weeks) 33 Admission EGA (days) 3 Steroids prior to delivery: yes, delivery 24-34 weeks Conditions of : anemia, HTN - chronic, HTN-chron w/pre-eclampsia, substance abuse Labs: Rh: positive Rubella: immune Hepatitis B: negative HIV: negative Syphilis: currently negative GBS: unknown Procedures: biophysical profile, ultrasound, non stress test Past History Past Medical History: Reports: Anemia, Depression/mood disorder, Hypertension. Additional Medical History: migraines, asthma, allergies Past Surgical History: Reports: Bariatric procedure. Additional Surgical History: abdominoplasty, sleeve gastrectomy, L salpingostomy Alcohol Use Denies EtOH use Drug Use Denies recreational drugs, NOB UDS positive for amphetamines Smoking status for patients 13 years old or older: Current every day smoker Medications: Home Medications: VIT/FE FUMARATE/FA ( Multivitamin w/ Iron) 1 DAILY NIFEdipine XL (PROCARDIA XL) 30 MG PO DAILY hydrALAZINE (APRESOLINE) 50 MG PO TID MEALS NITROFURANTOIN/NITROFURAN MAC (MACROBID) 100 MG PO BID ASPIRIN 81 MG PO DAILY Allergies: Coded Allergies: No Known Allergies (02/28/12) Objective General VS: Last Documented: Result Date Time Pulse Ox 99 03/27 2057 Pulse 81 03/27 2057 B/P Mean 111.0 03/27 2040 B/P 167/78 03/27 2040 Temp 97.6 03/27 1542 Resp 16 03/27 1542 Vital Signs Date Temp Pulse Resp B/P B/P Mean Pulse Ox FiO2 03/26-03/27 97.6-98.4 63-154 15-18 117-198/61-11 86.0-150.0 89-100 6 PATIENT WEIGHT: Weight (lb): 234 Weight (oz): 9.15 Weight (kg): 106.400 Diagnosis, Assessment Plan Diagnosis, Assessment Plan Free Text A P: Ms. Abbott is a 31 yo female at 33w3d admit for IOL for SI PreE. Patient' s complicated by CHTN (on Procardia 30 mg BID), UDS+amphetamines, tobacco use, anemia, medical non compliance, and now FGR. Per [facility] recommendations will move towards delivery. - Admit to L D. - Admission labs (T S, CBC, HIV, RPR, HbsAg) plus PIH labs (CBC, CMP, UA, LDH, UPC) as well as UDS to be collected. - GBS collected in clinic and pending. Will start PCN G Prophylaxis once Pitocin is started. - S/p BTMZx2. - Will continue Procardia 30 mg BID. - Magnesium for seizure prophyplaxis when severe range BPs occur. Treat severe range BPs with IV antihypertensives. - Will start IOL with Cervidil and reassess. GS today with fetus in cephalic presentation. - Continous FHT monitoring. - IV analgesia and Epidural per patient request.. Plan discussed with: patient Quality Current Medications Current medication review: I attest that the foregoing medication list in the medical record is true, accurate, and complete to the best of my knowledge. at 2127 RPT #:[id number] END OF REPORT [facility] 2022-03-22 17:01:00 [facility] ([facility]) OB Disch Undelivered REPORT#:[id number] REPORT STATUS: Signed DATE:03/22/22 TIME: 170 PATIENT: RADHA ABBOTT UNIT #: [id number] ROOM/BED: [place] [id number] : 88 AGE: 31 SEX: F ATTEND: Nuzhat Villatoro MD ADM AUTHOR: Nuzhat Villatoro MD * ALL edits or amendments must be made on the electronic/computer document * Subjective Subjective Admission EGA: Weeks: 32 Days: 4 Status/Day: hospital day (3) Patient reports: Patient reports: Yes: normal movement. No: complaints, abdominal pain, vaginal bleeding , leaking fluid, contractions, headache, scotomata (no anasarca). Objective General VS: Last Documented: Result Date Time B/P Mean 104.0 03/22 1121 B/P 157/72 12 1121 Pulse 100 03/22 1121 Temp 98.2 03/22 1105 Resp 18 03/22 1105 Pulse Ox 100 03/22 0203 PATIENT WEIGHT: Weight (lb): 220 Weight (oz): 7.4 Weight (kg): 100.000 Physical Exam FHR evaluation: Baby A FHR category: category 1 HEENT: normocephalic w/o injury, no apparent hearing diff, no lesions of mouth, no lesions of throat, no nasal septum deviation Lungs: unlabored breathing Neuro: Exam: alert, normal speech Abdomen: gravid Discharge Undelivered General Free Text A P: Ms. Abbott is a 31 yo HD#3 admit for likely CHTN excacerbation given medical non compliance. PIH labs overall unremarkable except for anemia which was worked up and found to be secondary to iron deficiency. Dr. Greene was consulted and recommended patient to continue Procardia 30 mg BID. Next appointment with myself and Dr. Greene is on 03/26. Patient voiced that she will be compliant. Patient is s/p BTMZ x 2 and will continue care OP. Admission diagnosis: rule out SI Pre E Discharge to: Home/Self Care Discharge condition: stable Discharge diagnosis: chronic HTN Procedures: non stress test Discharge Instructions Instructions: instr and warnings rev'd Warnings: labor warnings, preeclampsia signs/sympt, decreased movement Diet: Regular Activity: Resume Normal Activity Additional Discharge Routines: None Consultation(s): Consultation performed: perinatology Follow up with: injection molding engineer, perinatology at 2244 RPT #:[id number] END OF REPORT [facility] 2022-03-22 16:03:00 [id number] [address] PATIENT NAME: RADHA ABBOTT ADMIT DATE: 03/21/22 ACCOUNT NO: [id number] ROOM NO: [facility] [place] AGE: 31 REPORT TYPE: CONSULTATION REPORT SEX: F ADMITTING PHYSICIAN:Nuzhat Villatoro MD ATTENDING PHYSICIAN:Nuzhat Villatoro MD CONSULTATION DATE: 03/22/2022 Radha Abbott is a 31-year-old 4 para 0-2-1-3 at 32 6/7 weeks gestation who was admitted to labor and delivery yesterday with worsening hypertension. Dr. Villatoro contacted me and asked that I see Radha in consultation. I have seen Rahda in my office on several occasions due to her history of chronic hypertension, obesity, drug abuse, bariatric surgery and poor obstetric history. She was last seen on 03/12/2022 at 31 3/7 weeks gestation at which time a nelson male fetus in the cephalic presentation was noted by ultrasound. Biophysical profile was 10/10. Amniotic fluid volume was 18.5 cm. Radha reported that she was taking her nifedipine 30 ER daily, hydralazine 50 mg daily, and low dose aspirin. She reported that she has been living in a stressful situation and that she and her are in the middle of getting a divorce. Radha has not been compliant with her medical recommendations and she has not been truthful abour informing me that she has not seen Dr. Villatoro in months. Furthermore, I am not sure if she is taking her blood pressure medicines. Her drug screen was positive for amphetamines yesterday. After she was admitted to labor and delivery, her blood pressures improved with bed rest and taking nifedipine 30 ER. We decided to discontinue hydralazine due to her complaints of the blood pressure medicine making her feel sick. I recommended that nifedipine be increased to 30 ER b.i.d. and that we would watch her overnight. Today, Radha stated that she feels fine and denies any symptoms of preeclampsia. As previously stated, her blood pressures have improved with bed rest. CBC and CMP were within normal limits. Uric acid was slightly elevated at 6. 24-hour urine returned with 525 mg of protein. The patient reported that the fetus is active. I told Radha that she could be discharged to home and stressed the importance that she take her blood pressure medicines and stop taking drugs. Radha stated that she has not taking any drugs since . She told me today that she and her are actually not getting a divorce and that he is no longer filing for divorce. She is scheduled to see me in my office on March 26 and I told her to keep that appointment for follow-up ultrasound for growth and surveillance. Radha stated that she did not have any more nifedipine or hydralazine at home. I called in a refill script to [facility] in [place] for nifedipine 30 ER b.i.d.. PATIENT NAME: RADHA ABBOTT I also told Radha that if she does not see Dr. Villatoro next week that I would no longer see her either. Radha voiced understanding of this information and these recommendations. Total unit time with the patient [address] Villatoro was telephoned and we discussed these findings and my recommendations. Thank you for asking me to see Radha in consultation. Dictated By: Osvaldo Greene MD; FACOG Date Dictated: 03/22/2022 16:03:00 Date Transcribed: 03/22/2022 16:57:33 /[facility] [place] Receipt ID: [id number] Authenticated and Edited by Osvaldo Greene MD On 03/22/22 8:13:22 PM at 0816 PATIENT NAME: RADHA ABBOTT [facility] 2022-03-22 08:14:00 [facility] ([facility]) OB Antepartum Prog Note REPORT#:[id number] REPORT STATUS: Signed DATE:03/22/22 TIME: 813 PATIENT: RADHA ABBOTT UNIT #: [id number] ROOM/BED: [place] [address] : 88 AGE: 31 SEX: F ATTEND: Nuzhat Villatoro MD ADM AUTHOR: Nuzhat Villatoro MD * ALL edits or amendments must be made on the electronic/computer document * Subjective Subjective Admission EGA: Weeks: 32 Days: 4 Current EGA: Current EGA(wks): 32 Current EGA(days): 6 Patient reports: Patient reports: Yes: normal movement. No: complaints, abdominal pain, vaginal bleeding , leaking fluid, contractions, headache, blurred vision, scotomata (no anasarca) . Review of Systems Eyes: Denies: visual loss/blurred. GI: Denies: abdominal pain. : Denies: vaginal bleeding. Neuro: Denies: headache, vision change. Objective Nursing Documentation Review Nursing data: The data set between the solid lines has been imported from nursing documentation. Any exceptions have been noted below under Provider comments. ROM date: ROM time: Labor onset date: Labor onset time: Provider comments on imported nursing data: [] VS: Last Documented: Result Date Time B/P Mean 104.0 03/22 0705 B/P 147/76 03/22 0705 Temp 98.5 03/22 0705 Pulse 108 12/ 0705 Resp 18 12/ 0705 Pulse Ox 100 / 0203 Vital Signs Date Temp Pulse Resp B/P B/P Mean Pulse Ox FiO2 /-03/22 97.6-98.5 83-121 16-18 104-180/57-92 78.0-121.0 87-100 PATIENT WEIGHT: Weight (lb): 220 Weight (oz): 7.4 Weight (kg): 100.000 Medications: Active Meds + DC'd Last 24 Hrs Cyanocobalamin (Vitamin B-12 500 mcg tab) 500 MCG DAILY PO (DC) Famotidine (PEPCID) 20 MG DAILY PO Folic Acid (FOLIC ACID) 1 MG DAILY PO (DC) Docusate Sodium (COLACE) 100 MG BID PO Ferrous Sulfate (FERROUS SULFATE) 325 MG BID PO Betamethasone Acet/Betameth SodPhos (BETAMETHASONE AC-SP 12 MG/2 ML) 12 MG ONCE ONE IM (DC) Magnesium Sulfate (MAGNESIUM SULFATE 20GM/SWFI 500ML) 500 ML Q24H IV (DC ) Famotidine (PEPCID) 20 MG DAILY PO (DC) Famotidine (PEPCID) 20 MG AC BK PO (DC) Cyanocobalamin (Vitamin B-12 500 mcg tab) 500 MCG DAILY PO Folic Acid (FOLIC ACID) 1 MG DAILY PO Acetaminophen (TYLENOL EXTRA STRENGTH) 1,000 MG ONCE ONE PO (DC) Hydralazine HCl (APRESOLINE) 50 MG DAILY PO (DC) Nifedipine (Procardia XL (Adalat-CC)) 30 MG DAILY PO Bupivacaine HCl (MARCAINE) 10 ML ONCE PRN EPIDURAL (CKD) Bupivacaine HCl (MARCAINE) 10 ML ASDIR PRN EPIDURAL (CKD) Bupivacaine HCl (MARCAINE 0.5%) 30 ML ASDIR PRN EPIDURAL (CKD) Diphenhydramine HCl (BENADRYL) 12.5 MG Q6H PRN PRN IV Ephedrine Sulfate (ePHEDrine sulfate) 10 MG ONCE PRN IV Ephedrine Sulfate (ePHEDrine sulfate) 25 MG ONCE PRN IM Lidocaine/Epinephrine (LIDOCAINE 1.5% W/EPINEPHrine) 5 ML ASDIR PRN LOCAL Naloxone HCl (NARCAN) 0.1 MG ASDIR PRN IV (CKD) Ropivacaine/Fentanyl/NS (fentaNYL/ROP 200 MCG/0.125% 100ML CASSETTE) 0 ASDIR EPIDURAL Sterile Water (WATER FOR INJECTION) 10 ML ASDIR PRN EPIDURAL Hydralazine HCl (APRESOLINE) 50 MG BID PO (DC) Nifedipine (Procardia XL (Adalat-CC)) 60 MG BID PO (DC) Al Hydrox/Mg Hydrox/Simethicone (MYLANTA) 30 ML TID PRN PRN PO Ondansetron HCl (ZOFRAN ODT) 4 MG Q4H PRN PRN PO Simethicone (MYLANTA GAS) 160 MG Q2H PRN PRN PO Zolpidem Tartrate (AMBIEN) 5 MG BEDTIME PRN PRN PO Acetaminophen (TYLENOL) 650 MG Q4H PRN PRN PO Hydralazine HCl (APRESOLINE) 10 MG ASDIR PRN IV Labetalol HCl (LABETALOL HCL) 20 MG ASDIR PRN IV Labetalol HCl (LABETALOL HCL) 40 MG ASDIR PRN IV Labetalol HCl (LABETALOL HCL) 80 MG ASDIR PRN IV Magnesium Sulfate (MAGNESIUM SULFATE 20GM/SWFI 500ML) 500 ML Q20H IV (DC ) Dietitian nutrition assessment The data set between the solid lines has been imported from the dietitian's assessment. BMI Calculated: 38.97 Nutrition related diagnosis: Nutrition diagnosis details: Nutrition problem: Nutrition etiology: Nutrition signs and symptoms: Nutrition prescription: Dietitian name: Assessment completed: HEENT: normocephalic w/o injury, no apparent hearing diff, no lesions of mouth, no lesions of throat, no nasal septum deviation Lungs: unlabored breathing Neuro: Exam: alert, normal speech Abdomen: gravid Diagnosis, Assessment Plan Diagnosis, Assessment Plan Free text A P: Ms. Abbott is a 31 yo female at 32w6d admit for likely CHTN excacerbation given medical noncompliance. - PIH labs notable for anemia, iron deficiency - On Fe supplementation twice daily and Colace - Hemoglobinopathies pending - 24 hr urine protein/calcium collection to finish at 1300 today - BPs overnight with 1 severe range BP that was treated with Labetalol 20 mg IV. Since then no other severe range BPs. - Patient currently only on Procardia 30 mg QD. - Patient asymptomatic this AM - Dr. Greene to visit with patient today and assess need of increasing Procardia to 30 mg BID. - Navigatin Program consult placed given multiple social issues ( travelling difficulties, lack of social support at home, substance use [ amphetamine], tobacco use) - Patient is s/p BTMZ x2 - NSTs BID - Continue PNVs F: None E: WNL N: Regular diet Consultation(s): Consultation performed: perinatology at 0826 RPT #:[id number] END OF REPORT [facility] 2022-03-21 22:15:00 [facility] ([facility]) DT PROGRESS NOTE REPORT#:[id number] REPORT STATUS: Signed DATE:03/21/22 TIME: 2214 PATIENT: RADHA ABBOTT UNIT #: [id number] ROOM/BED: [place] [address] : 88 AGE: 31 SEX: F ATTEND: Nuzhat Villatoro MD ADM AUTHOR: Nuzhat Villatoro MD * ALL edits or amendments must be made on the electronic/computer document * Progress Note Progress Note Presented to patient's room for afternoon rounds around 6:30 pm. ANYA Oneal in room. Informed patient that her [facility] labs have returned and are within expected parameters except for anemia that seems to be secondary to iron deficiency as folate/vitamin B12 are WNL. Hemoglobinopathies pending. Will order Fe and Colace to be given twice daily. Informed patient that her BPs have remained stable and after discussing with Dr. Greene, we will discontinue Hydralazine today (to compromise with patient given non compliance secondary to SE) and see if Procardia 30 mg QD can control BP overnight and reasses in the AM. If patient needs to be titrated up, will prescribe Procardia 30 mg BID. Magnesium can be discontinued at this time and patient can be placed on a regular diet. Moreover, discussed that we will continue with plan of given ANCS as well continuing urine collection for 24 hr urine protein and calcium. I also informed patient that her UDS was again positive for amphetamins and that this can explain some of the findings previously identified of baby on ultrasound imaging. She states that she is unaware of where she is getting the amphetamines from because she only consumes Ambien and her BP medications. Moreover, I found a mine car mechanic beneath patient's bed at which time patient confesses that she smokes cigarettes (she had declined this at her NOB visit with me and had been seen smoking outside of Dr. Greene's office after an MFM appointment) . I discussed that her uncontrolled HTN as well as cigarette smoking can place her baby at risk of FGR which has not yet been identified on ultrasound but there are concerns for this eventually occurring. Patient upset and started crying. Patient declined once again pelvic exam given reported LOF/pelvic pressure this AM. Informed patient that both Dr. Greene and I will be revisiting her tomorrow and that if she remain stable, we anticipate discharge tomorrow. Patient has appointments schedueld for Dr. Greene and myself on 03/26/22. I explained to patient that I understand that there are several social aspects that complicate her care. I offerred services from the hospital to help her with this through a community case manager. Patient not open to this idea but will reassess tomorrow AM. FHT Category 1. BPs reviewd and non severe. at 2231 RPT #:[id number] END OF REPORT [facility] 2022-03-21 09:38:00 [facility] ([facility]) OB Admission / H P REPORT#:[id number] REPORT STATUS: Signed DATE:03/21/22 TIME: 937 PATIENT: RADHA ABBOTT UNIT #: [id number] ROOM/BED: [place] [address] : 88 AGE: 31 SEX: F ATTEND: Nuzhat Villatoro MD ADM AUTHOR: Nuzhat Villatoro MD * ALL edits or amendments must be made on the electronic/computer document * OB History Chief complaint: elevated blood pressure, edema HPI: Ms. Abbott is a female at 32w5d who presented to [facility] for increased leg swelling. Patient reports that she took her mother's blood pressure medication- labetalol (she is prescribed Procardia and Nifedipine but does not like SE a/w these medications). She was found at [place] to have elevated SBPs in the 200s. She was given treatment for severe range BP, started on Magnesium, and given ANCS. She was transferred to [facility] for further care. At the time that I visited her this morning, she reports MAY and increased leg swelling. She denies vision changes and RUQ pain. She also reports increased watery discharge in the vagina but no gross LOF. She reports pelvic pressure. Denies VB. +FM. She states that she has been unable to come to her appointments with me because her car broke down and she lives 2 hours away. She states that her next appointment with Dr. Greene is 03/26 at 10 am. history: : 4 Term: 0 : 2 Abortus: 1 Living children: 3 Complications (prev preg): hypertension, multiple gestation, preeclampsia Previous : none Current : Best EDC: 05/11/22 Admission EGA (weeks) 32 Admission EGA (days) 4 Conditions of : anemia, HTN - chronic, substance abuse Procedures: biophysical profile, ultrasound Past History Past Medical History: Reports: Anemia, Depression/mood disorder, Hypertension. Additional Medical History: migraines, asthma, allergies Past Surgical History: Reports: Bariatric procedure. Additional Surgical History: abdominoplasty, sleeve gastrectomy, L salpingostomy Family History Reports: Diabetes, Hypertension. Alcohol Use Denies EtOH use Drug Use Denies recreational drugs, NOB UDS positive for amphetamines Smoking status for patients 13 years old or older: Current every day smoker Medications: Home Medications: NIFEdipine XL (PROCARDIA XL) 60 MG PO BID VIT/FE FUMARATE/FA ( Multivitamin w/ Iron) 1 DAILY ASPIRIN 81 MG PO DAILY ZOLPIDEM (AMBIEN) 10 MG PO BEDTIME hydrALAZINE (APRESOLINE) 50 MG PO BID Allergies: Coded Allergies: No Known Allergies (02/28/12) Review of Systems Eyes: Denies: visual loss/blurred. GI: Denies: abdominal pain. : Reports: other (pelvic pressure). Musculoskeletal: extremity swelling. Neuro: headache. Denies: vision change. Objective General VS: Last Documented: Result Date Time Pulse Ox 100 03/21 1855 Pulse 106 03/21 1855 B/P Mean 97.0 03/21 1822 B/P 139/69 03/21 1822 Temp 97.6 03/21 1522 Resp 16 03/21 1522 Vital Signs Date Temp Pulse Resp B/P B/P Mean Pulse Ox FiO2 03/21 97.6-98.0 71-121 16-18 104-172/53-92 76.0-121.0 87-100 PATIENT WEIGHT: Weight (lb): 220 Weight (oz): 7.4 Weight (kg): 100.000 Physical Exam HEENT: normocephalic w/o injury, no apparent hearing diff, no lesions of mouth, no lesions of throat, no nasal septum deviation Lungs: unlabored breathing Breasts: deferred Neuro: Exam: alert, normal speech Abdomen: gravid Pelvic exam: Exam: patient declined Membranes: Membranes: patient declined evaluation Results Findings/Data: Laboratory Tests: 03/21 03/21 1410 0826 Chemistry Sodium (134 - 147 mEq/L) 134 Potassium (3.4 - 5.0 mEq/L) 3.6 Chloride (100 - 108 mEq/L) 102 Carbon Dioxide (21 - 33 mEq/l) 25 Anion Gap (0 - 20) 11 BUN (7 - 18 mg/dL) 11 Creatinine (0.6 - 1.3 mg/dL) 0.8 Glomerular Filtr Rate (105 - 110) 99.7 L Glucose (70 - 110 mg/dL) 115 H Uric Acid (2.6 - 7.2 mg/dL) 6.0 Calcium (8.0 - 10.5 mg/dL) 8.4 Iron (35 - 150 mcg/dL) 24 L TIBC (260 - 445 mcg/dL) 464 H % Saturation (14 - 34 %) 5.2 L Unsat Iron Binding (mcg/dL) 440 Ferritin (11.0 - 306.8 ng/mL) 3.6 L Total Bilirubin (0.0 - 1.0 mg/dL) 0.30 AST (15 - 37 IUnit/L) 17 ALT (30 - 65 IUnit/L) 9 L Total Alk Phosphatase (20 - 125 IUnit/L) 102 Lactate Dehydrogenase (84 - 246 IUnits/L) 170 Total Protein (6.4 - 8.2 g/dL) 7.1 Albumin (3.4 - 5.0 g/dL) 2.90 L Vitamin B12 (193 - 986 pg/mL) 469 Folate (3.1 - 17.5 ng/mL) 30.3 H Hematology WBC (4.5 - 11.0 x10 3/uL) 9.5 RBC (3.54 - 5.02 x10 6/uL) 3.64 Hgb (11.0 - 15.0 g/dL) 9.5 L Hct (33.0 - 45.0 %) 31.7 L MCV (81.0 - 99.0 fL) 87.1 MCH (27.0 - 33.0 pg) 26.1 L MCHC (33.0 - 37.0 g/dL) 30.0 L RDW (11.5 - 14.5 %) 15.6 H Plt Count (150 - 400 x10 3/uL) 446 H MPV (7.0 - 9.0 fL) 9.5 H Neut % (Auto) (56.0 - 77.0 %) 87.5 H Lymph % (Auto) (14.0 - 32.0 %) 9.0 L [place] % (Auto) (4.8 - 9.0 %) 2.2 L Eos % (Auto) (0.3 - 3.7 %) 0.1 L Baso % (Auto) (0.0 - 2.0 %) 0.0 Neut # (Auto) (2.0 - 7.6 x10 3/uL) 8.27 H Lymph # (Auto) (1.0 - 3.8 x10 3/uL) 0.85 L [place] # (Auto) (0.1 - 0.8 x10 3/uL) 0.21 Eos # (Auto) (0.0 - 0.2 x10 3/uL) 0.01 Baso # (Auto) (0.0 - 0.2 x10 3/uL) 0.00 Abs Immat Gran (auto) (0.00 - 0.03 x10 3/uL) 0.11 H Add Manual Diff NO Immature Gran % (0.0 - 2.0 %) 1.2 Nucleated RBC % (0 - 0 %) 0.3 H Nucleated RBCs # (Man) (0.0 - 0.1 x10 3/uL) 0.03 Serology Hep Bs Antigen (NonReactive INDEX) NON REACTIVE HIV 1 2 Antibody Screen (Nonreactive) Nonreactive 03/21 03/21 0805 0200 Chemistry Magnesium (1.80 - 2.40 mg/dL) 3.56 H Serology RPR (NONREACTIVE) NONREACTIVE Toxicology Urine Opiates Screen (NEGATIVE) NEGATIVE Urine Barbiturates (NEGATIVE) NEGATIVE Ur Phencyclidine Scrn (NEGATIVE) NEGATIVE Ur Amphetamines Screen (NEGATIVE) POSITIVE H U Benzodiazepines Scrn (NEGATIVE) NEGATIVE Urine Cocaine Screen (NEGATIVE) NEGATIVE Urine Cannabinoids (NEGATIVE) NEGATIVE Urines Urine Color (YEL/STRAW) YELLOW Urine Appearance (CLEAR) CLEAR Urine pH (5.0 - 7.0) 6.0 Ur Specific [place] (1.005 - 1.030) 1.017 Urine Protein (NEGATIVE) NEGATIVE Urine Glucose (UA) (NEGATIVE) 1+ H Urine Ketones (NEGATIVE) NEGATIVE Urine Blood (NEGATIVE) 1+ H Urine Nitrite (NEGATIVE) NEGATIVE Urine Bilirubin (NEGATIVE) NEGATIVE Urine Urobilinogen (0.2 - 1.0 mg/dL) 0.2 Ur Leukocyte Esterase (NEGATIVE) TRACE H Urine RBC (0 - 3 RBC/HPF) 21-50 Urine WBC (0 - 3 WBC/HPF) 4-9 H Ur Squamous Epith Cells (NONE SEEN /HPF) 0-5 Urine Bacteria (NONE SEEN /HPF) TRACE Urine Mucus (NONE SEEN /LPF) TRACE Diagnosis, Assessment Plan Diagnosis, Assessment Plan Free Text A P: Ms. Abbott is a 31 yo female at 32w5d admit for r/o CHTN excacerbation vs SI PreE. - Pt with known medical non compliance with Procardia and Hydralazine. - Will collect PIH Labs, 24 hr urine proten, 24 hr urine calcium. - Continue Magnesium for seizure prophylaxis until labs result and BPs are monitored. - Will continue Procardia 30 mg QD and Hydralazine 50 mg QD as written in Dr. Greene's last OV on 03/12/22. - Continue ANCS, s/p 1 dose. - Will work up anemia furthermore by collecting Vitamin B12, folic acid, iron panel, and hemoglobinopathies. - Given positive amphetamine result on UDS at NOB visit, will repeat in this admission. Patient notably upset when informed that she has no showed to every appointment (a total of 3) since her NOB visit and that this is not acceptable as it makes it difficult to take care of her and her baby. There are many important aspects of her care such as testing for gestational diabetes that have not been completed. Moreover, she was informed that Dr. Greene may not continue seeing her in the office if she does not present to her visits with me. Patient states that she wants to leave AMA. I informed her that this is her decision but by doing so she puts herself and/or her baby at risk of including but not limited to stroke, eclampsia, HELLP, placental abruption, and . Patient declined CE and pelvic exam to evaluate for reported pelvic pressure and LOF, respectively. Informed patient that it is my preference that she stays in the hospital to further evaluate her and that I will return later on to check on her status. at 2215 RPT #:[id number] END OF REPORT [facility] 2022-03-21 00:41:00 [facility] ([facility]) OB Admission / H P REPORT#:[id number] REPORT STATUS: Signed DATE:03/21/22 TIME: 004 PATIENT: RADHA ABBOTT UNIT #: [id number] ROOM/BED: [place] [address] : 88 AGE: 31 SEX: F ATTEND: Nuzhat Villatoro MD ADM AUTHOR: Caitlyn Wilhelm MD * ALL edits or amendments must be made on the electronic/computer document * OB History Chief complaint: elevated blood pressure HPI: 31YO @ 32 4/7 weeks by reported EDC transferred here from [place] secondary to uncontrolled chronic hypertension vs. superimposed preeclampsia. Pt denies any symptoms of MAY, changes in vision or RUQ pain. She reports seeing Dr. Silva in early and transferring to Dr. Villatoro recently; last visit about 1 month ago but reports seeing Dr. Greene every 2 weeks. She lives an hour away and finds it hard to get to her visits. She also reports not taking her bp meds because she doesn't like how it makes her feel. She was started on mag sulfate and given IV labetalol protocol as well as her first dose of BMZ prior to transfer history: : 4 Term: 0 : 2 Abortus: 1 Living children: 3 Complications (prev preg): hypertension Previous : none Current : Best EDC: 05/11/22 Admission EGA (weeks) 32 Admission EGA (days) 4 Conditions of : HTN - chronic Procedures: ultrasound Past History Additional Medical History: HTN, migraines, asthma, allergies, depression Additional Surgical History: abdominoplasty, BTL Family History Reports: Diabetes, Hypertension. Alcohol Use Denies EtOH use Drug Use Denies recreational drugs Packs per day: 0.3 Allergies: Coded Allergies: No Known Allergies (02/28/12) Objective General VS: Last Documented: Result Date Time Pulse Ox 96 03/21 658 Pulse 90 03/21 0658 B/P Mean 82.0 03/21 625 B/P 118/60 03/21 0625 Temp 98.0 03/21 0458 Resp 18 03/21 045 Vital Signs Date Temp Pulse Resp B/P B/P Mean Pulse Ox FiO2 03/21 97.8-98.0 71-107 18 108-172/53-92 76.0-121.0 93-100 PATIENT WEIGHT: Weight (lb): 220 Weight (oz): 7.4 Weight (kg): 100.000 Physical Exam Neuro: Exam: alert, oriented x3, normal speech Abdomen: gravid, soft, no abnormal tenderness, no guarding, no rebound tenderness Uterine activity: Monitor: toco Frequency (description): rare Intensity: mild Resting tone: relaxed, non-relaxed Membranes: Membranes: Intact Lower extremities: Edema: none Baby A: Baby A FHR category: category 1 Results Findings/Data: Laboratory Tests: 03/21 0200 Chemistry Magnesium (1.80 - 2.40 mg/dL) 3.56 H Diagnosis, Assessment Plan Diagnosis, Assessment Plan Problem List/A P: 1. Pre-existing essential hypertension complicating , second trimester Assessment/Impression: chronic hypertension, uncontrolled, not taking meds; need to rule out superimposed preeclampsia Plan: admit to inpatient, betamethasone admin (2nd dose due 2030 tonight), magnesium sulfate (ok to continue x 24 hours), MFM consult Consultation(s): Consultation performed: perinatology at [facility] #:[id number] END OF REPORT [facility] 2021-12-14 09:41:00 [facility] ([facility] ob disch undelivered report#:[id number] report status: signed date:12/14/21 time: 09 patient: radha abbott unit #: [id number] room/bed: [place] [address] : 88 age: 31 sex: f attend: bruce silva md adm dt: 12/13/21 author: bruce silva md * all edits or amendments must be made on the electronic/computer document * subjective free text subj notes free text subj notes: patient feeling well, no complaints. objective general vs: last documented: result date time b/p mean 118.0 12/14 0816 b/p 155/95 12/14 0816 pulse 83 12/14 0816 pulse ox 99 12/13 1742 temp 37.2 12/13 1742 resp 17 12/13 1742 vital signs date temp pulse resp b/p b/p mean pulse ox fio2 12/13-12/14 36.7-37.2 71-90 17-18 127-184/70-103 91.0-134.0 99-100 patient weight: weight (lb): 220 weight (oz): 7.4 weight (kg): 100.000 physical exam fhr evaluation: baby a baseline: 150 bpm baby a notes: heart tones present via doppler lungs: clear to auscultation neuro: exam: alert, oriented x3, normal speech abdomen: gravid, soft, no abnormal tenderness lower extremities: edema: trace discharge undelivered general free text a p: 31 y/o at 18+6 weeks with chronic hypertension better controlled on oral nifedipine and hydralazine plan: discharge home today with these medications, patient has nifedipine at home and hydralazine has been sent to her pharmacy advised to make a blood pressure diary at home and follow up as an outpatient with dr hough in one week admission diagnosis: uncontrolled chronic hypertension hospital course: patient was admitted for blood pressure control. was started on nifedipine 30 xl bid and hydralazine 50 mg bid was added as well. bp were better controlled on these medications and patient clinically improved. was discharged home in stable condition on hd #3. discharge to: home/self care discharge condition: stable discharge diagnosis: chronic htn discharge management: less than 30 mins time spent: time spent with patient (minut 15 discharge instructions instructions: routine instr sheet given warnings: labor warnings, preeclampsia signs/sympt diet: regular activity: as tolerated additional discharge routines: attending follow-up prescriptions: stop taking the following medications: labetalol (trandate) 200 mg tab 200 milligram oral twice daily. continue taking these medications: vit/fe fumarate/fa ( multivitamin w/ iron) 1 each tablet 1 daily. instructions: take 1 daily aspirin (aspirin) 81 mg tab.chew 81 milligram oral daily. zolpidem (ambien) 10 mg tab 10 milligram oral bedtime. nifedipine xl (procardia xl) 30 mg tab.sa 60 milligram oral twice daily. start taking the following new medications: hydralazine (apresoline) 25 mg tab 50 milligram oral twice daily. qty = 60 refills = 2 attending physician: attending physician: omer hough md phone: [phone] attending physician follow up timeframe: in 6 days electronically signed by bruce silva md on 12/14/21 at 0944 rpt #:[id number] end of report [facility] 2021-12-13 17:16:00 [facility] ([facility]) ob antepartum prog note report#:[id number] report status: signed date:12/13/21 time: 1716 patient: radha abbott unit #: [id number] room/bed: [place] [address] : 88 age: 31 sex: f attend: bruce silva md adm dt: 12/13/21 author: bruce silva md * all edits or amendments must be made on the electronic/computer document * subjective free text subj notes free text subj notes: patient feeling well, no headache. no obstetric complaints. bp mild range today. objective nursing documentation review nursing data: the data set between the solid lines has been imported from nursing documentation. any exceptions have been noted below under provider comments. rom date: rom time: labor onset date: labor onset time: provider comments on imported nursing data: [] vs: last documented: result date time b/p mean 108.0 12/13 1241 pulse ox 100 12/13 1241 b/p 141/85 12/13 1241 temp 36.7 12/13 1241 pulse 82 12/13 1241 resp 18 12/13 1241 vital signs date temp pulse resp b/p b/p mean pulse ox fio2 12/12-12/13 36.7-37.2 72-83 18 141-145/78-93 106.0-112.0 92-100 patient weight: weight (lb): 220 weight (oz): 7.4 weight (kg): 100.000 cardiac: regular rate and rhythm, no clinically sig murmur lungs: clear to auscultation abdomen: gravid, soft, no abnormal tenderness lower extremities: edema: trace baby a: baby a baseline: 150 bpm diagnosis, assessment plan diagnosis, assessment plan free text a p: 31 y/o at 18+5 weeks with exacerbation of chronic hypertension bp mild range on nifedipine 30 xl bid and hydralazine 50 mg bid last growth scan was normal 1.5 weeks ago plan: continue antihypertensives check all bp seated with legs dangling no blood pressures at night while asleep discharge home tomorrow if bp continue to be stable electronically signed by bruce silva md on 12/13/21 at 1717 rpt #:[id number] end of report [facility] 2021-12-12 16:34:00 [facility] ([facility]) ob antepartum prog note report#:[id number] report status: signed date:12/12/21 time: 1634 patient: radha abbott unit #: [id number] room/bed: [place] [address] : 88 age: 31 sex: f attend: bruce silva md adm dt: 12/11/21 author: bruce silva md * all edits or amendments must be made on the electronic/computer document * subjective free text subj notes free text subj notes: patient denies headache, blurry vision, or epigastric pain. bp all taken in supine position. objective nursing documentation review nursing data: the data set between the solid lines has been imported from nursing documentation. any exceptions have been noted below under provider comments. rom date: rom time: labor onset date: labor onset time: provider comments on imported nursing data: [] vs: last documented: result date time b/p mean 109.0 12/12 1232 b/p 153/79 12/12 1232 pulse 76 12/12 1232 resp 20 12/12 1023 temp 36.8 12/12 0720 pulse ox 100 12/12 0307 vital signs date temp pulse resp b/p b/p mean pulse ox fio2 12/11-12/12 36.8-36.9 74-85 18-20 132-190/75-93 99.0-127.0 100 patient weight: weight (lb): 220 weight (oz): 7.4 weight (kg): 100.000 cardiac: regular rate and rhythm, no clinically sig murmur lungs: clear to auscultation abdomen: gravid, soft, no abnormal tenderness lower extremities: edema: trace baby a: baby a baseline: 150 bpm findings/data: laboratory tests: 12/11 12/11 12/11 1145 0815 0800 chemistry sodium (134 - 147 meq/l) 138 potassium (3.4 - 5.0 meq/l) 3.6 chloride (100 - 108 meq/l) 110 h carbon dioxide (21 - 33 meq/l) 22 anion gap (0 - 20) 9 bun (7 - 18 mg/dl) 6 l creatinine (0.6 - 1.3 mg/dl) 0.3 l 0.3 l glomerular filtr rate (105 - 110) 310.0 h glucose (70 - 110 mg/dl) 79 calcium (8.0 - 10.5 mg/dl) 7.7 l magnesium (1.80 - 2.40 mg/dl) 3.82 h total bilirubin (0.0 - 1.0 mg/dl) 0.30 ast (15 - 37 iunit/l) 11 l alt (30 - 65 iunit/l) < 7 l total alk phosphatase (20 - 125 iunit/l) 52 total protein (6.4 - 8.2 g/dl) 6.3 l albumin (3.4 - 5.0 g/dl) 2.70 l hematology wbc (4.5 - 11.0 x10 3/ul) 6.5 rbc (3.54 - 5.02 x10 6/ul) 2.90 l hgb (11.0 - 15.0 g/dl) 8.2 l hct (33.0 - 45.0 %) 26.6 l mcv (81.0 - 99.0 fl) 91.7 mch (27.0 - 33.0 pg) 28.3 mchc (33.0 - 37.0 g/dl) 30.8 l rdw (11.5 - 14.5 %) 15.7 h plt count (150 - 400 x10 3/ul) 326 mpv (7.0 - 9.0 fl) 9.2 h neut % (auto) (56.0 - 77.0 %) 68.1 lymph % (auto) (14.0 - 32.0 %) 21.7 mono % (auto) (4.8 - 9.0 %) 7.9 eos % (auto) (0.3 - 3.7 %) 1.7 baso % (auto) (0.0 - 2.0 %) 0.3 neut # (auto) (2.0 - 7.6 x10 3/ul) 4.40 lymph # (auto) (1.0 - 3.8 x10 3/ul) 1.40 mono # (auto) (0.1 - 0.8 x10 3/ul) 0.51 eos # (auto) (0.0 - 0.2 x10 3/ul) 0.11 baso # (auto) (0.0 - 0.2 x10 3/ul) 0.02 abs immat gran (auto) (0.00 - 0.03 x10 3/ul) 0.02 add manual diff no immature gran % (0.0 - 2.0 %) 0.3 nucleated rbc % (0 - 0 %) 0.0 nucleated rbcs # (man) (0.0 - 0.1 x10 3/ul) 0.00 urines ur random creatinine (mg/dl) 53.1 u random total protein (mg/dl) 6 urine collection time (min) 1440 urine total volume (ml) 3500 ur creatinine 24 hour (1.0 - 1.6 gm/24hr) 1.9 h creatinine clearance (70 - 130 mls/min) 430 h ur total protein 24 hr (0 - 150 mg/24hr) 210 diagnosis, assessment plan diagnosis, assessment plan free text a p: 31 y/o at 18+4 weeks with exacerbation of chronic hypertension bp mild range on nifedipine 30 xl bid last growth scan was normal 1.5 weeks ago plan: continue antihypertensives check all bp seated with legs dangling no blood pressures at night while asleep electronically signed by bruce silva md on 12/12/21 at 1636 rpt #:[id number] end of report [facility] 2021-12-11 01:36:00 [facility] ([facility]) ob admission / h p report#:[id number] report status: signed date:12/11/21 time: 135 patient: rahda abbott unit #: [id number] room/bed: 304-1 : 88 age: 31 sex: f attend: bruce silva md adm dt: author: eligio willis do * all edits or amendments must be made on the electronic/computer document * ob history chief complaint: transferred from [facility] for high bp hpi: 31yo at 18w2d by 1st trimester ultrasound who presented to [facility] er with headache 10/10, mouth swelling and lower pelvic cramping. reports bps 200/100s at home. recently switched from labetalol 200mg bid to nifedipine xl 30mg bid by dr. silva. bps in the ed 150-160s/90-100s. received magnesium 4g in the er. reports may has eased to 7/10. it is in the back of her head. she has had headaches on and off for several weeks not but this is much worse. also stating she couldn't feel her feet d/t swelling. the swelling has improved since arrival. pt has a h/o preeclampsia requiring delivery at 32 and 34 weeks. cramping started last night and is getting worse. denies dysuria, voiding dysfunction. some nausea. denies lof, vb. not feeling movement yet. also mouth swelling. has self diagnosed tooth abscess, on and off for several years. studies from [facility]'s er visit: ekg nsr creatinine 0.84, hgb 8.8, plt 2888, ast 14, alt 13, pt 11.3, inr 1.03, troponin hs 6.5 (<58.9 normal), covid neg, pro bnp 106, magnesium 1.9 cxr negative us: cephalic, myometrial contraction visualized, afv normal past history additional medical history: htn, migraines, asthma, allergies, depression additional surgical history: abdominoplasty, btl family history reports: diabetes, hypertension. alcohol use denies etoh use drug use denies recreational drugs smoking status: smoking status for patients 13 years old or older: current every day smoker ( has cut down to 2-3cigs/day) medications: home medications: nifedipine xl (procardia xl) 60 mg po bid vit/fe fumarate/fa ( multivitamin w/ iron) 1 daily aspirin 81 mg po daily zolpidem (ambien) 10 mg po bedtime labetalol (trandate) 200 mg po bid allergies: coded allergies: no known allergies (02/28/12) objective general vs: last documented: result date time b/p mean 126.0 12/11 0155 b/p 162/100 12/11 0155 pulse 74 12/11 0155 pulse ox 99 12/11 0152 temp 98.7 12/11 0118 resp 18 12/11 0118 vital signs date temp pulse resp b/p b/p mean pulse ox fio2 12/11 98.7 68-84 18 162-167/88-100 119.0-126.0 91-99 patient weight: weight (lb): 220 weight (oz): 7.4 weight (kg): 100.000 physical exam heent: tooth decay noted in molars but no obvious abscess. mild swelling of left cheek. cardiac: regular rate and rhythm lungs: clear to auscultation neuro: exam: alert, oriented x3, normal speech abdomen: gravid, soft, tender suprapubically uterine activity: monitor: toco frequency (description): none membranes: membranes: intact lower extremities: edema: trace additional comments: normal sensation of toes baby a: baby a notes: heart tones present via doppler diagnosis, assessment plan diagnosis, assessment plan problem list/a p: 1. 18 weeks gestation of 2. headache in , antepartum 3. pre-existing essential hypertension complicating , second trimester free text a p: - admit for observation. preeclampsia rare at this gestational age, but will treat as preeclamptic given severity of headache. continue nifedipine xl 30mg daily. iv labetalol protocol. resume magnesium. - tx headache with reglan and benadryl. resume ambien per pt request - check urine studies and monitor for signs of labor (none picking up on toco) - pt in agreement with plan eligio willis do electronically signed by eligio willis do on 12/11/21 at 0255 rpt #:[id number] end of report [facility]
[2023-11-26 20:55] LABS: Specific Gravity > 1.030 (1.005-1.030)
[2023-11-26 21:06] LABS: Specific Gravity > 1.030 (1.005-1.030); Sqamous Epithelial <5 /HPF (None Seen); Urine Bacteria None Seen /HPF (<20); Urine Bilirubin NEGATIVE (Negative); Urine Blood Negative (Negative); Urine Clarity Turbid (Clear); Urine Color Light-Yellow (Yellow); Urine Crystals Unidentified Few /HPF (None Seen); Urine Culture Reflex Order NOT NEEDED; Urine Glucose 1+ (Negative); Urine Ketones TRACE (Negative); Urine Microscopic Reflex YN ORDER UMIC; Urine Mucus Slight /HPF (None Seen); Urine Nitrite NEGATIVE (Negative); Urine Protein TRACE (Negative); Urine RBC <5 /HPF (None Seen); Urine Urobilinogen 1+ (Normal); Urine WBC <5 /HPF (<5)
--- NOTE | 2023-11-26 21:35 | RAD REPORT ---
EXAM DESCRIPTION: US - Transvaginal OB - 11/26/2023 9:17 pm CLINICAL HISTORY: ABD CRAMPING, COMPARISON: OB Limited dated 12/10/2021 FINDINGS: Single IUP identified with positive heart tones. The heart rate is measured at 154 beats/. minute. The crown rump length measures 1 cm which is consistent with 7 week 1 day and ED D of 10/06/2023. The right ovary is volume of 7.4 cc. Left ovary is volume of 7.8 cc. Both ovaries may ve vascular flow. IMPRESSION: Single viable IUP with positive heart tones measuring 7 week 1 day with ALAN of . Bilateral ovarian blood flow.
[2023-11-26 21:51] LABS: Absolute Eosinophils 0.2 K/uL (0-0.5); Absolute Lymphocytes (CBC) 1.7 K/uL (0.7-4.9); Absolute Monocytes 0.4 K/uL (0.1-1.3); Absolute Neutrophil 3.5 K/uL (1.8-8.0); Basophils % 0.7 % (0-1.3); Hematocrit 29.7 % (36.0-45.0); Hemoglobin 9.3 g/dL (12.0-15.0); MCH 25.2 pg (27.0-35.0); MCHC 31.1 g/dL (32.0-36.0); MCV 80.9 fL (80-100); Monocytes % 6.6 % (3.3-12.3); Neutrophils % 60.7 % (41.7-73.7); Nucleated Red Blood Cells % 0.4 % (0-0); Platelets 398 thou/uL (152-406); RBC Red Blood Cell Count 3.67 M/uL (3.86-4.86); Red Cell Distribution Width 20.6 % (12.1-15.2)
[2023-11-26 22:29] LABS: Anion Gap 7.3 mEq/L (5.0-15.0); Potassium 3.3 mEq/L (3.5-5.1)
[2023-11-26 23:03] LABS: Anisocytosis 1+; Blood Morphology Comment NOTED (NOT SEEN); Platelet Estimate ADEQ; White Blood Cell Scan OK (OK)
--- NOTE | 2023-11-26 23:10 | ER ---
Nurse's Notes [facility] Name: Radha Paris Age: 33 yrs Sex: Female : 1990 Arrival Date: 11/26/2023 Time: 19:52 Bed 5 Private MD: Diagnosis: , hypertension Presentation: 11/25 20:34 Chief complaint: Patient states: Took a test today due to not having any cm10 energy and light headed and it came back positive. Pt also reports having high blood pressure. Pt reports headache. Coronavirus screen: Client denies travel out of the [place] in the last 14 days. At this time, the client does not indicate any symptoms associated with coronavirus-19. Ebola Screen: Patient denies travel to an Ebola-affected area in the 21 days before illness onset. No symptoms or risks identified at this time. Initial Sepsis Screen: Does the patient meet any 2 criteria? No. Patient's initial sepsis screen is negative. Does the patient have a suspected source of infection? No. Patient's initial sepsis screen is negative. Risk Assessment: Do you want to hurt yourself or someone else? Patient reports no desire to harm self or others. Onset of symptoms was November 26, 2023. 20:34 Method Of Arrival: Ambulatory cm10 20:34 Acuity: KORINA 3 cm10 Triage Assessment: 20:36 General: Appears in no apparent distress. comfortable, Behavior is calm, cooperative. cm10 Neuro: No deficits noted. Level of Consciousness is awake, alert, obeys commands, Oriented to person, place, time, situation, Appropriate for age. Respiratory: No deficits noted. Airway is patent Respiratory effort is even, unlabored, Respiratory pattern is regular, symmetrical. GEOPHYSICIST: 20:33 6, Premature 4, 1, Verified cm10 Historical: - Allergies: 20:35 No Known Allergies; cm10 - PMHx: 20:35 Pre-eclampsia; Ectopic ; Hypertensive disorder; cm10 - Immunization history:: Adult Immunizations up to date. - Infectious Disease History:: Denies. - Social history:: Smoking status: Patient denies any tobacco usage or history of. Screenin:46 [facility] ED Fall Risk Assessment (Adult) History of falling in the last 3 months, cp4 including since admission No falls in past 3 months (0 pts) Confusion or Disorientation No (0 pts) Intoxicated or Sedated No (0 pts) Impaired Gait No (0 pts) Mobility Assist Device Used No (0 pt) Altered Elimination No (0 pt) Score/Fall Risk Level 0 - 2 = Low Risk Oriented to surroundings, Maintained a safe environment, Assessed \T\ reinforced patient's understanding of fall precautions, Hourly rounding (assess needs \T\ fall precautionary measures) done. Abuse screen: Denies threats or abuse. Nutritional screening: No deficits noted. Tuberculosis screening: No symptoms or risk factors identified. Assessment: 21:45 General: Appears in no apparent distress. Behavior is calm, cooperative, appropriate cp4 for age. Pain: Denies pain. Neuro: Level of Consciousness is awake, alert, obeys commands, Oriented to person, place, time, situation. Cardiovascular: Reports high blood pressure. Respiratory: No deficits noted. GI: No deficits noted. : No deficits noted. EENT: No deficits noted. Derm: No deficits noted. Musculoskeletal: No deficits noted. Vital Signs: 20:34 BP 183 / 97; Pulse 92; Resp 16; Temp 98.2; Pulse Ox 100% on R/A; Weight 81.65 kg; cm10 Height 5 ft. 3 in. ; Pain 8/10; 22:00 BP 168 / 96; Pulse 78; Resp 18; Pulse Ox 99% ; cp4 23:00 BP 150 / 72; Pulse 74; Resp 18; Pulse Ox 98% ; cp4 20:34 Body Mass Index 31.89 (81.65 kg, 160.02 cm) cm10 20:34 Pain Scale: Adult cm10 ED Course: 19:59 Patient arrived in ED. gm2 20:06 Deann Lenz MD is Attending Physician. sp3 20:35 Triage completed. cm10 20:37 Arm band placed on Patient placed in waiting room. cm10 20:41 Test, Urine Sent. cm10 20:41 Urinalysis w/ reflexes Sent. cm10 20:41 Urine collected: clean catch specimen. cm10 21:18 US Transvaginal Ob In Process Unspecified. EDMS 21:33 Kristina Leggett is Primary Nurse. cp4 21:44 Abo/rh Typing Sent. cp4 21:44 Basic Metabolic Panel Sent. cp4 21:45 CBC with Diff Sent. cp4 21:45 Quantitative Hcg Sent. cp4 21:45 Initial lab(s) drawn, by me, sent to lab. Inserted saline lock: 22 gauge in right cp4 antecubital area, using aseptic technique. Blood collected. Flushed with 10 mL NS. 21:46 Bed in low position. Call light in reach. Side rails up X 1. Provided Education on: cp4 . 21:46 No provider procedures requiring assistance completed. cp4 23:21 intact, bleeding controlled, No redness/swelling at site. Pressure dressing applied. cp4 Administered Medications: No medications were administered Medication: 21:33 VIS not applicable for this client. cm10 Outcome: 23:09 Discharge ordered by MD. sp3 23:21 Discharged to home ambulatory, cp4 23:21 Condition: stable 23:21 Discharge instructions given to patient, Instructed on discharge instructions, follow up and referral plans. medication usage, Demonstrated understanding of instructions, follow-up care, medications, Prescriptions given X 1, 23:22 Patient left the ED. cp4 Signatures: Dispatcher [employer] EDMS Deann Lenz MD MD sp3 Vanessa Cifuentes, ANYA JOYNER cm10 Kristina Leggett cp4 Ashly Houston 2 Corrections: (The following items were deleted from the chart) 21:33 20:33 5, Premature 4, 1, unknown cm10 cm10
--- NOTE | 2023-11-26 23:10 | EDPHYS ---
Physician Documentation [facility] Name: Radha Paris Age: 33 yrs Sex: Female : 1990 Arrival Date: 11/26/2023 Time: 19:52 Bed 5 Private MD: ED Physician Deann Lenz HPI: 11/25 20:34 This 33 yrs old Black Female presents to ER via Unassigned with complaints of High sp3 Blood Pressure, PT STATES SHE TOOK AT PREG TEST AND IT WAS POSITIVE TODAY. 20:34 33-year-old female (twins x 1) A0 now approximately 8 weeks from LMP with sp3 positive home test and also history of hypertension and preeclampsia with all pregnancies as well as 1 tubal now presents to the ED with chief complaint abdominal cramping, high blood pressure and feelings of fatigue. Patient is not currently on any antihypertensive agents and does not obtain regular primary health care. All of her pregnancies have been at [facility]. Currently she denies headache, neck pain, chest pain, shortness of breath, back pain, current vaginal bleeding or discharge (though patient states approximately 1 week ago she did have some mild spotting). Remainder of review of systems is negative. She does not know her blood type.. [employer] (EX ): 20:33 6, Premature 4, 1, Verified cm10 Historical: - Allergies: 20:35 No Known Allergies; cm10 - PMHx: 20:35 Pre-eclampsia; Ectopic ; Hypertensive disorder; cm10 - Immunization history:: Adult Immunizations up to date. - Infectious Disease History:: Denies. - Social history:: Smoking status: Patient denies any tobacco usage or history of. ROS: 20:36 Constitutional: Negative for fever, chills, and weight loss, Eyes: Negative for injury, sp3 pain, redness, and discharge, Neck: Negative for injury, pain, and swelling, Cardiovascular: Negative for chest pain, palpitations, and edema, Respiratory: Negative for shortness of breath, cough, wheezing, and pleuritic chest pain, Back: Negative for injury and pain, MS/Extremity: Negative for injury and deformity, Skin: Negative for injury, rash, and discoloration, Neuro: Negative for headache, weakness, numbness, tingling, and seizure, Psych: Negative for depression, anxiety, suicide ideation, homicidal ideation, and hallucinations, Allergy/Immunology: Negative for hives, rash, and allergies, Endocrine: Negative for neck swelling, polydipsia, polyuria, polyphagia, and marked weight changes, Hematologic/Lymphatic: Negative for swollen nodes, abnormal bleeding, and unusual bruising, 20:36 All other systems are negative, Exam: 20:37 Constitutional: This is a well developed, well nourished patient who is awake, alert, sp3 and in no acute distress. Head/Face: Normocephalic, atraumatic. Eyes: Pupils equal round and reactive to light, extra-ocular motions intact. Lids and lashes normal. Conjunctiva and sclera are non-icteric and not injected. Cornea within normal limits. Periorbital areas with no swelling, redness, or edema. ENT: Nares patent. No nasal discharge, no septal abnormalities noted. External auditory canals are clear. Oropharynx with no redness, swelling, or masses, exudates, or evidence of obstruction, uvula midline. Mucous membranes moist. Neck: Trachea midline, no thyromegaly or masses palpated, and no cervical lymphadenopathy. Supple, full range of motion without nuchal rigidity, or vertebral point tenderness. No Meningismus. Chest/axilla: Normal chest wall appearance and motion. Nontender with no deformity. No lesions are appreciated. Cardiovascular: Regular rate and rhythm with a normal S1 and S2. No gallops, murmurs, or rubs. Normal PMI, no JVD. No pulse deficits. Respiratory: Lungs have equal breath sounds bilaterally, clear to auscultation and percussion. No rales, rhonchi or wheezes noted. No increased work of breathing, no retractions or nasal flaring. Abdomen/GI: Soft, non-tender, with normal bowel sounds. No distension or tympany. No guarding or rebound. No evidence of tenderness throughout. Back: No spinal tenderness. No costovertebral tenderness. Full range of motion. Skin: Warm, dry with normal turgor. Normal color with no rashes, no lesions, and no evidence of cellulitis. MS/ Extremity: Pulses equal, no cyanosis. Neurovascular intact. Full, normal range of motion. Neuro: Awake and alert, GCS 15, oriented to person, place, time, and situation. Cranial nerves II-XII grossly intact. Motor strength 5/5 in all extremities. Sensory grossly intact. Cerebellar exam normal. Normal gait. Psych: Awake, alert, with orientation to person, place and time. Behavior, mood, and affect are within normal limits. 20:37 Chest/axilla: Blood pressure 183/90 with normal heart rate. Patient in no acute distress with normal neurological exam.. 20:37 Abdomen/GI: No significant abdominal pain to palpation, peritoneal signs, rebound or guarding noted., Vital Signs: 20:34 BP 183 / 97; Pulse 92; Resp 16; Temp 98.2; Pulse Ox 100% on R/A; Weight 81.65 kg; cm10 Height 5 ft. 3 in. ; Pain 8/10; 22:00 BP 168 / 96; Pulse 78; Resp 18; Pulse Ox 99% ; cp4 23:00 BP 150 / 72; Pulse 74; Resp 18; Pulse Ox 98% ; cp4 20:34 Body Mass Index 31.89 (81.65 kg, 160.02 cm) cm10 20:34 Pain Scale: Adult cm10 MDM: 20:37 Data reviewed: vital signs, nurses notes, lab test result(s), radiologic studies. ED sp3 course: 33-year-old female with positive home test now with hypertension and fatigue with history of preeclampsia and ectopic . Differential diagnosis includes with early preeclampsia, ectopic , other complication, with side effects, viral syndrome, electrolyte abnormality, among others. I am not highly suspicious for sepsis, shock or other critical pathology. Workup will include laboratory values, quant hCG, urine analysis, ultrasound of the pelvis transvaginal and blood pressure control as needed. CT scan not currently indicated. Disposition pending workup and patient course.. 20:43 Patient medically screened. sp3 23:08 ED course: Ultrasound demonstrates SL IUP at 7 weeks 1 day consistent with quantitative sp3 hCG at 82,000. Remainder of blood work demonstrates hemoglobin 9.3 and mild protein in the urine. Given patient's less than 20 weeks status this is most likely chronic hypertension as opposed to -induced hypertension. Given acog guidelines, we will start labetalol p.o. initial dose with follow-up to PCP and/or cloth painter at [facility].. 11/25 20:33 Order name: Abo/rh Typing; Complete Time: 23:07 sp3 11/25 20:33 Order name: Basic Metabolic Panel; Complete Time: 22:43 sp3 11/25 20:33 Order name: CBC with Diff; Complete Time: 23:07 sp3 11/25 20:33 Order name: Test, Urine; Complete Time: 21:40 sp3 11/25 20:33 Order name: Quantitative Hcg; Complete Time: 22:43 sp3 11/25 20:33 Order name: Urinalysis w/ reflexes; Complete Time: 21:40 sp3 11/25 21:55 Order name: CBC Smear Scan; Complete Time: 23:07 EDMS 11/25 20:33 Order name: US Transvaginal Ob; Complete Time: 21:40 sp3 11/25 20:33 Order name: IV Saline Lock; Complete Time: 21:44 sp3 11/25 20:33 Order name: Labs collected and sent; Complete Time: 21:44 sp3 11/25 20:33 Order name: NPO; Complete Time: 21:44 sp3 Administered Medications: No medications were administered Disposition Summary: 11/26/23 23:09 Discharge Ordered Notes: Location: Home sp3 Condition: Stable sp3 Diagnosis - , hypertension sp3 Followup: sp3 - With: Private Physician - When: Upon discharge from the Emergency Department - Reason: Further diagnostic work-up, Continuance of care Discharge Instructions: - Discharge Summary Sheet sp3 - First Trimester of sp3 - Hypertension During sp3 Forms: - Medication Reconciliation Form sp3 - Antibiotic Education sp3 - Prescription Opioid Use sp3 - Patient Portal Instructions sp3 - Leadership Thank You Letter sp3 Prescriptions: - labetalol 100 mg Oral tablet - take 1 tablet ORAL route 2 times per day 1 tab by mouth every 12 hours only if sp3 blood pressure greater than 160/90. If you are unsure on whether you should take this medicine, call your cloth painter.; 10 tablet; Refills: 0, Product Selection Permitted Signatures: Dispatcher [employer] Deann Lang MD MD sp3 Vanessa Cifuentes RN RN cm10
[2023-11-27 00:53] VITALS: TEMP 98.2
[2023-11-27 00:56] VITALS: BP 150/72; O2SAT 98
== END 2023-11-26 23:22 | disposition home or self-care (01) ==
LOC: ER 19:52
DX: O16.1 Unspecified maternal hypertension, first trimester (principal); Z3A.01 Less than 8 weeks gestation of pregnancy
CPT/HCPCS: 36415; 76817; 80048; 81001; 81025; 84702; 85025; 86900; 86901